=== PATIENT | female | born 1945 | race Caucasian/White ===

== ENCOUNTER → 2017-09-25 09:31 | Outpatient (CLI) | payer BC, SELFPAY ==
--- NOTE | 2017-09-25 09:35 | HPBI_ITS ---
MAMMOGRAPHY - BILATERAL SCREENING REASON FOR EXAM: Female, 71 years old. Routine annual screening examination. PERTINENT HISTORY: Non-contributory. TECHNIQUE: Digital bilateral breast darnell (3D mammographic acquisition) in the CC and MLO projections. 2-D mediolateral oblique (MLO) and craniocaudad (CC) views of both breasts were obtained. CAD: Full Field Digital Mammography with Computer Added Detection was performed. COMPARISON: Comparison is made with prior study dated September 05, 2016 and August 28, 2015. FINDINGS: Breast Composition: The breasts are heterogeneously dense, which may obscure small masses. There are no dominant masses or suspicious calcifications. Stable bilateral secretory calcifications. No other significant abnormalities are identified. There has been no significant change since the prior study. HPBI/SCREENING MAMM (CAD), BILAT IMPRESSION: Stable bilateral screening mammogram. Yearly follow-up mammogram recommended. (A) ASSESSMENT CATEGORY: BIRADS Category 2: Benign. A letter regarding these results will be sent to the patient by the facility within 30 days. Approximately 10% of breast cancers are not detected by mammography. A normal mammogram should not delay biopsy of a clinically suspicious abnormality. [id number] Electronically Signed: Michael Thomason MD at 13:38 EST Tel [phone], Service support ,
== END ==
PROVIDERS: Family Provider Family Medicine; PCP Family Medicine; Visit Provider Family Medicine
DX: Z12.31 Encounter for screening mammogram for malignant neoplasm of breast (principal)
CPT/HCPCS: 77063; 77067

== ENCOUNTER → 2017-11-06 14:15 | Outpatient (CLI) | payer BC, MEDICARE, SELFPAY ==
[2017-11-06 16:18] LABS: Hemoglobin A1c 6.4 % (4.2-6.3)
== END ==
PROVIDERS: Family Provider Family Medicine; PCP Family Medicine; Visit Provider Family Medicine
DX: E11.9 Type 2 diabetes mellitus without complications (principal)
CPT/HCPCS: 36415; 83036

== ENCOUNTER → 2018-02-12 09:36 | Outpatient (CLI) | payer BC, MEDICARE, SELFPAY ==
[2018-02-12 12:31] LABS: Hemoglobin A1c 6.4 % (4.2-6.3)
== END ==
PROVIDERS: Family Provider Family Medicine; PCP Family Medicine; Visit Provider Family Medicine
DX: E11.9 Type 2 diabetes mellitus without complications (principal)
CPT/HCPCS: 36415; 83036

== ENCOUNTER → 2018-04-16 13:38 | Outpatient (CLI) | payer OTHER, MEDICARE, SELFPAY ==
[2018-04-16 15:38] LABS: Color, Urine Yellow (Yellow); Glucose, Dipstick Normal (Normal); Ketone-Dipstick Negative (Negative); Leukocyte Esterase-Dipstick 100 /ul (Negative); Nitrite-Dipstick Negative (Negative); Occult Blood-Urine Negative /ul (Negative); Protein-Dipstick 15 mg/dl (Negative); Urine Bilirubin Dipstick Negative (Negative); Urine Clarity Cloudy (Clear); Urine Urobilinogen Normal (Normal)
== END ==
PROVIDERS: Family Provider Family Medicine; PCP Family Medicine; Visit Provider Family Medicine
DX: R10.9 Unspecified abdominal pain (principal)
CPT/HCPCS: 81002

== ENCOUNTER 2018-04-23 13:00 | Outpatient (RCR) | payer BC, OTHER, MEDICARE, SELFPAY ==
--- NOTE | 2018-02-12 11:53 | HP.OTEVAL ---
Patient's Visit Information CANDACE SILVESTRE is a 72 year old F, referred to Occupational Therapy by Timmy Sandoval MD, with a diagnosis of Unilateral primary osteoarthritis of 1st carpometacarpal joint right hand. Date of Evaluation: 02/12/18 Occupational Therapist: Dianna Webb, OTR/Tom, CHT - Subjective Subjective: pt states she had difficulty with right thumb CMC pain and Arthritis for 8 years-pt states her fingers started to get numb so she decided to have sx. sx on January 26, 2018 with right CMC arthroplasty, and CTR. pt states she is feeling good- reports numbness has gone away and she is happy with her progress. Pt would like to return to her ind. BADLS and IADLS. 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 Goal:: pt will demo right wrist and thumb ROM equal to left by d/c to return pt to PLOF with BADLS and IADLS. Goal:: pt will report no pain greater kam 1/10 with use of right hand with BADLS and IADls by d/c Goal:: pt will demo understanding of scar mtg by end of 2nd visits to decrease scar complications Goal:: pt will demo understanding of joint protection and ad. eq for IADLS bu d/c - Rehabilitation General Assessment: pt S/P 2 weeks right thumb carpometacarpal arthroplasty: ligament reconstruction, right thumb adductor release: tenosynovectomy and first dorsal campartment- right carpal tunnel release- right wrist flexor tenosynovectomy on 01/26/18. pt is demo a reduction in right wrist/digit ROM and limited with functional use of righ UE with ADLS and IADLS. OTR/L, CHT will provide skilled service following JWD post op protocol to return pt to PLOF- Rehabilitation Potential: Excellent - Anticipated Interventions Anticipated Interventions: A/AAROM/PROM, Strengthening, Edema Control, Scar Care, Desensitization, Wound Care, Modalities, Orthoses, Joint Protection/Energy Conservation, Fine Motor Coord/Valerio - Visit Plan Frequency: 1x/Week Duration: 2 Months TEXT: Thank you for the opportunity to evaluate your patient. For Medicare and Medicare HMO plans, please review the plan of care and approve it. It will need to be FAXED BACK to us at [phone] for Medicare purposes. Please let me know if there are questions or concerns regarding this plan of care. Physician Signature: Date:
--- NOTE | 2018-04-23 13:33 | HP.OTDCSUM ---
HP - OT D/C Summary It has been my pleasure to treat CANDACE SILVESTRE under orders from Timmy Sandoval MD, for the diagnosis of Unilateral primary osteoarthritis of 1st carpometacarpal joint right hand for a total of 9 visit(s). Please see the following information for a summary of their discharge status. - Overall Improvement % Improvement: 90 - Objective Objective/Function: right spinning frame fixer 15#. left 20#. right IP flex 60. right MP flex 45. pt reports no numbness/tingling. pt demo with functional ROM. - Goals Patient Goals: Regain Mobility, Regain Strength, Use Hand/Wrist/Arm Normally Again Goal:: following 10 week s/p pt will be tested for spinning frame fixer/pinch strength and goals will be set at that time. Goal:: pt will demo right wrist and thumb ROM equal to left by d/c to return pt to PLOF with BADLS and IADLS. Goal:: pt will report no pain greater kam 1/10 with use of right hand with BADLS and IADls by d/c Goal:: pt will demo understanding of scar mtg by end of 2nd visits to decrease scar complications Goal:: pt will demo understanding of joint protection and ad. eq for IADLS bu d/c - Plan Plan: D/C - D/C Information Discharge Comments: PT was seen for 9 visit following a right CMC arthroplasty. PT reports she is ind. with all BADLs and IADLS at this time PT.has met functional goals and is D/C at this time. If there are questions or concerns regarding this patient's occupational therapy, please fell free to call me at [phone]. Thank you for the referral of this patient. Sincerely, Dianna Webb, OTR/L, CHT
== END 2018-04-23 19:00 | disposition home or self-care (01) ==
LOC: OT 13:00
PROVIDERS: Family Provider Family Medicine; PCP Family Medicine; Visit Provider Orthopaedic Surgery
DX: G56.01 Carpal tunnel syndrome, right upper limb (principal); M18.11 Unilateral primary osteoarthritis of first carpometacarpal joint, right hand; M65.841 Other synovitis and tenosynovitis, right hand
CPT/HCPCS: 97035; 97110; 97140; 97166; 97168; 97530; G8987; G8988; G8989

== ENCOUNTER → 2018-05-18 10:07 | Outpatient (CLI) | payer OTHER, MEDICARE, SELFPAY ==
[2018-05-18 12:50] LABS: Hemoglobin A1c 6.5 % (4.2-6.3)
== END ==
PROVIDERS: Family Provider Family Medicine; PCP Family Medicine; Visit Provider Family Medicine
DX: E11.9 Type 2 diabetes mellitus without complications (principal)
CPT/HCPCS: 36415; 83036

== ENCOUNTER → 2018-05-27 15:55 | Outpatient (CLI) | payer OTHER, MEDICARE, SELFPAY ==
--- NOTE | 2018-05-27 15:59 | RAD_ITS ---
STUDY: X-RAY - LUMBAR SPINE REASON FOR EXAM: Female, 72 years old. Lower back pain TECHNIQUE: 3 view(s) of the lumbar spine were obtained. COMPARISON: None FINDINGS: Normal lumbar lordosis. There is no substantial scoliosis. There is a normal alignment of the vertebrae. There is multilevel endplate spondylosis of the lumbar vertebrae. There is multi-level degenerative disc disease with multi-level disc space narrowing. The soft tissue structures are unremarkable. RAD/Lumbar Spine 2 or 3 Views IMPRESSION: Degenerative changes of the spine, as detailed above. Electronically Signed: Pio Stacy MD at 13:46 EDT Tel , Service support ,
--- NOTE | 2018-05-27 15:59 | RAD_ITS ---
STUDY: X-RAY - THORACIC SPINE REASON FOR EXAM: Female, 72 years old. Back pain TECHNIQUE: 3 view(s) of the thoracic spine were obtained. COMPARISON: None. FINDINGS: Normal kyphosis of the thoracic spine. There is mild dextroscoliosis. There is multilevel endplate spondylosis of the thoracic vertebrae. There is multilevel disc space narrowing of the thoracic spine. The soft tissue structures are unremarkable. RAD/Thoracic Spine 2 Views IMPRESSION: There is multilevel endplate spondylosis of the thoracic vertebrae. There is multilevel disc space narrowing of the thoracic spine. Electronically Signed: Pio Stacy MD at 13:47 EDT Tel , Service support ,
== END ==
PROVIDERS: Family Provider Family Medicine; PCP Family Medicine; Visit Provider Family Medicine
DX: M54.9 Dorsalgia, unspecified (principal)
CPT/HCPCS: 72070; 72100

== ENCOUNTER 2018-05-29 11:17 | Emergency (ER) | payer OTHER, MEDICARE, SELFPAY ==
[2018-05-29 11:18] VITALS: BP 155/98; PULSE 89; RESP 18; TEMP 36.9; O2SAT 97; BMI 41.0
--- NOTE | 2018-05-29 11:29 | CT_ITS ---
STUDY: CT ABDOMEN AND PELVIS WITHOUT CONTRAST REASON FOR EXAM: Female, 72 years old. Back pain. Gastric bypass. RADIATION DOSAGE (If Supplied By Facility): CTDIvol = ( 23.15 ) mGy, DLP = ( 1197.04 ) mGycm TECHNIQUE: Transaxial images were obtained from the dome of the diaphragm to the symphysis pubis without oral contrast, and without intravenous contrast. Sagittal and coronal images were reconstructed. Individualized dose optimization techniques were used for this CT. COMPARISON: None. FINDINGS: The visualized lung bases are unremarkable. Mild cardiomegaly. Normal liver. There is non-visualization of the gallbladder, which may be secondary to either contraction or a prior cholecystectomy. Normal spleen. Normal pancreas. Normal bilateral adrenal glands. No acute abnormality of the kidneys. Multiple bilateral small stones in all segments. No obstructing stones. No hydronephrosis. 1.5 cm exophytic mass of the lower pole of the right kidney, most likely a cyst but recommend confirmation with ultrasound. Evaluation of the GI tract is limited by absence of oral contrast. There has been gastric bypass. Cannot exclude stomach wall thickening. No dilated loops of bowel or evidence for obstruction. Cannot exclude segmental thickening of the estes of the small or large bowel. Cannot exclude enteritis or colitis. Moderate diffuse fecal retention. Appendix is absent. Normal abdominal aorta. Normal inferior vena cava. Normal retroperitoneum. Normal urinary bladder. Normal visualized uterus. There are small midline fat-containing hernias. There are diffuse degenerative changes of the visualized lumbar spine. CT/Abdomen/Pelvis without Cont IMPRESSION: No definite acute abnormality. Probable cyst of the lower pole of the right kidney. Ultrasound recommended. Electronically Signed: Berhane Duke MD at 12:43 EDT , Service support ,
--- NOTE | 2018-05-29 11:31 | ED.DCSUM_ITS ---
- ER Visit Summary Date of Service: 05/29/18 Chief Complaint: Left back pain History of Present Illness: The patient is a 72 F presents to the emergency department left-sided back pain. The patient had the same symptoms about a month ago. She states it lasted 10-12 days. She states the pain returned over the past few days. She states that if she lays flat, she has no pain. It is only when she twists or coughs. She denies any trauma. The pain does not radiate down her legs. She denies any rash. She has had no fever or chills. She has no history of pulmonary embolus. The patient is on Xarelto. She has not had cough. She denies any urinary symptoms. She had no numbness in her groin. She had no problems moving her bowels. The pain got worse last night about 2 AM. She states she took 2 [place] with little improvement. Physical Examination: Afebrile, vitals unremarkable. Well-appearing female no acute distress. Head is normocephalic, atraumatic. Pupil's equal round reactive, extraocular muscles intact. Neck supple. Heart regular rate and rhythm. Lungs clear, chest nontender. Abdomen soft, nontender, nondistended. No pulsatile mass. Patient has paraspinal tenderness in the left paraspinal thoracic area, but no bony tenderness. Straight leg raise is negative bilaterally. 2+ symmetric lower extremity pulses. 2+ reflexes. No clonus. No weakness of dorsiflexion, plantar flexion, or extensor hallucis longus bilaterally. Test Results: [] Emergency Department Course and Treatment: The patient's pain does seem musculoskeletal. It is only when she moves or twists. Sitting and laying, she has no pain. Her abdomen is benign. She has normal pulses of her lower extremities. However, given her recent negative x-rays and pain despite oral therapy, I did pursue a workup. The patient is already on Xarelto. I really do not have suspicion for renal infarct or other dangerous process. Screening labs were obtained were unremarkable. The patient was given morphine with some improvement of her pain. CT of the abdomen and pelvis does not show any acute intra-abdominal pathology. It is a noncontrasted exam. There is no large stone. She does have some nitrite positive urine. I do not feel that this is pyelonephritis or that this is the cause of her symptoms, but I will treat her with oral antibiotics. Culture was added. She has no rash or skin change. At this time, I am going to add lidocaine patch, Medrol, and a short course of Percocet for pain control. I do feel that she may need MRI as an outpatient, but she has no dangerous symptoms were I feel like this needs to be done emergently. The patient is able to ambulate. At this time, I do feel that she is safe for outpatient therapy. Treatment Plan: [] Disposition: Discharge Impression: 1. Cystitis 2. Left flank pain This note was generated with [employer] dictation software. It may contain incorrect words, spelling, and punctuation that were not noted in review of the chart prior to signing ED Disposition - Plan for ED Patient: Disposition: Home or Assisted Living Chief Complaint: Back Instructions: ED Flank Pain Uncertain Cause Prescriptions: Oxycodone HCl/Acetaminophen [Percocet 5/325] 1 tab PO Q6H PRN PRN 3 Days #12 tab PRN Reason: Pain Cephalexin [Keflex] 500 mg PO Q6 #40 cap Fluconazole [Diflucan] 150 mg PO X1 #1 tab MethylPREDNISolone DosePak [Medrol DosePak] 4 mg PO UD #1 box RX: Lidocaine 1 ea TP BID #14 adh..patch Referrals: Gerard Kothari DO [Primary Care Provider] -
[2018-05-29 11:47] LABS: Absolute Lymphocyte Count 1.56 X10^3/ul (0.83-4.51); Absolute Neutrophil Count 2.7 X10^3/uL (2.0-7.7); Basophil# 0.03 X10^3/uL; Basophil% 0.6 % (0-1); Eosinophil# 0.18 X10^3/uL; Eosinophils% 3.7 % (0-5); Hematocrit 38.8 % (37-47); Lymphocyte # 1.56 X10^3/ul (4.0); Lymphocyte % 31.6 % (19-41); Mean Corp Hgb Conc 30.9 g/gl (32-36); Mean Corpuscular Hgb 27.5 pg (27.0-32.0); Monocyte# 0.47 X10^3/uL; Monocyte% 9.5 % (0-10); Neutrophil # 2.68 X10^3/uL (2.7-7.7); Neutrophil % 54.4 % (47-70); Platelet Count 244 K/mm3 (150-450); RBC Distribution Width CV 16.3 % (11.6-14.6); Red Blood Count 4.36 M/mm3 (4.2-5.4); White Blood Count 4.9 K/mm3 (4.4-11.0)
[2018-05-29 11:50] LABS: POSITIVE COUNT NO; POSITIVE DIFFERENTIAL NO; POSITIVE MORPHOLOGY NO
[2018-05-29] MEDS: Morphine 4 MG/ML Syringe IV (11:59)
[2018-05-29] MEDS: Ondansetron 4 MG/2 ML Vial IV (11:59)
[2018-05-29 12:02] LABS: Anion Gap 9 (5-15); BUN 33 mg/dL (7-18); BUN/Creat Ratio 23.9 RATIO (10-20); Calcium,Total 9.1 mg/dL (8.5-10.1); Chloride 103 mmol/L (98-107); Creatinine, Serum 1.38 mg/dL (0.55-1.02); EST Glomerular Filtration Rate 40 mL/min (>60); Est Glom Filt Rate - Afr Amer 48 mL/min (>60); Glucose 138 mg/dL (74-106); Potassium 5.3 mmol/L (3.5-5.1); Sodium Level 139 mmol/L (136-145)
[2018-05-29 12:15] LABS: Mucous, Urine 0 SEEN /hpf (<or=2+); Red Blood Cells-Urine 0 SEEN /hpf (0-5)
[2018-05-29 12:23] LABS: Color, Urine Yellow (Yellow); Glucose, Dipstick Normal (Normal); Ketone-Dipstick Negative (Negative); Leukocyte Esterase-Dipstick 25 /ul (Negative); Nitrite-Dipstick Positive (Negative); Occult Blood-Urine Negative /ul (Negative); Protein-Dipstick 15 mg/dl (Negative); Urine Bilirubin Dipstick Negative (Negative); Urine Clarity Sl. Cloudy (Clear); Urine Urobilinogen Normal (Normal)
[2018-05-29 12:40] LABS: Bacteria 1+ /hpf (None Seen); Squamous Epithelial Cells - UA 0-5 SEEN /hpf (5-10); White Blood Cells 0-5 SEEN /hpf (0-5)
[2018-05-29 13:42] VITALS: BP 132/62; PULSE 74; RESP 18; O2SAT 94
== END 2018-05-29 13:47 | disposition home or self-care (01) ==
LOC: ED 11:50
PROVIDERS: Emergency Provider Emergency Medicine; Family Provider Family Medicine; PCP Family Medicine
DX: N30.90 Cystitis, unspecified without hematuria (principal); R10.9 Unspecified abdominal pain; I10 Essential (primary) hypertension; Z79.01 Long term (current) use of anticoagulants; Z79.899 Other long term (current) drug therapy
CPT/HCPCS: 74176; 80048; 81001; 85025; 87086; 87088; 87186; 96374; 96375; 99283; A4216; J2405

== ENCOUNTER → 2018-11-06 12:38 | Outpatient (CLI) | payer OTHER, MEDICARE, SELFPAY ==
[2018-08-20 09:31] VITALS: BMI 40.5
[2018-11-05 15:19] VITALS: BMI 40.5
--- NOTE | 2018-11-06 12:39 | BI_ITS ---
MAMMOGRAPHY - BILATERAL SCREENING REASON FOR EXAM: Female, 73 years old. Routine annual screening examination. PERTINENT HISTORY: Non-contributory. TECHNIQUE: Digital bilateral breast nivia (3D mammographic acquisition) in the CC and MLO projections. 2-D mediolateral oblique (MLO) and craniocaudad (CC) views of both breasts were obtained. CAD: Full Field Digital Mammography with Computer Added Detection was performed. COMPARISON: Comparison is made with prior examination dated September 25, 2017 and September 05, 2016. FINDINGS: Breast Composition: The breasts are heterogeneously dense, which may obscure small masses. There are no dominant masses or suspicious calcifications. Stable bilateral secretory calcifications. No other significant abnormalities are identified. There has been no significant change since the prior study. BI/SCREEN MAMM (CAD) W/NIVIA BILAT IMPRESSION: Stable bilateral screening mammogram. Yearly follow-up mammogram recommended. (A) ASSESSMENT CATEGORY: BIRADS Category 2: Benign. A letter regarding these results will be sent to the patient by the facility within 30 days. Approximately 10% of breast cancers are not detected by mammography. A normal mammogram should not delay biopsy of a clinically suspicious abnormality. [id number] Electronically Signed: Michael Thomason, at 14:25 EDT , Service support ,
== END ==
PROVIDERS: Family Provider Family Medicine; PCP Family Medicine; Referring Provider Family Medicine; Visit Provider Family Medicine
DX: Z12.31 Encounter for screening mammogram for malignant neoplasm of breast (principal)
CPT/HCPCS: 77063; 77067

== ENCOUNTER → 2018-11-18 11:34 | Outpatient (CLI) | payer OTHER, MEDICARE, SELFPAY ==
[2018-11-18 11:02] VITALS: BMI 40.5
[2018-11-18 12:45] LABS: Absolute Lymphocyte Count 1.36 X10^3/ul (0.83-4.51); Absolute Neutrophil Count 3.6 X10^3/uL (2.0-7.7); Basophil# 0.04 X10^3/uL; Basophil% 0.7 % (0-1); Eosinophil# 0.23 X10^3/uL; Eosinophils% 3.9 % (0-5); Hematocrit 37.3 % (37-47); Lymphocyte # 1.36 X10^3/ul (4.0); Mean Corp Hgb Conc 29.5 g/gl (32-36); Mean Corpuscular Hgb 25.8 pg (27.0-32.0); Mean Corpuscular Volume 87.6 fL (81-99); Mean Platelet Vol. 9.2 fl (6.2-12.0); Monocyte# 0.63 X10^3/uL; Monocyte% 10.6 % (0-10); Neutrophil # 3.64 X10^3/uL (2.7-7.7); Neutrophil % 61.5 % (47-70); Platelet Count 253 K/mm3 (150-450); RBC Distribution Width CV 16.9 % (11.6-14.6); RBC Distribution Width SD 53.4 fl (35.1-43.9); Red Blood Count 4.26 M/mm3 (4.2-5.4); White Blood Count 5.9 K/mm3 (4.4-11.0)
[2018-11-18 12:47] LABS: POSITIVE COUNT NO; POSITIVE DIFFERENTIAL NO; POSITIVE MORPHOLOGY NO
[2018-11-18 13:06] LABS: Anion Gap 10 (5-15); BUN 35 mg/dL (7-18); Calcium,Total 8.8 mg/dL (8.5-10.1); Chloride 103 mmol/L (98-107); Creatinine, Serum 1.46 mg/dL (0.55-1.02); EST Glomerular Filtration Rate 37 mL/min (>60); Est Glom Filt Rate - Afr Amer 45 mL/min (>60); Glucose 116 mg/dL (74-106); Potassium 4.5 mmol/L (3.5-5.1); Sodium Level 137 mmol/L (136-145)
[2018-11-18 13:11] LABS: Hemoglobin A1c 6.8 % (4.2-6.3)
[2018-11-18 13:15] LABS: BNP,B-Type NATRIURETIC PEPTIDE 530.8 pg/mL (0-100)
== END ==
PROVIDERS: Family Provider Family Medicine; PCP Family Medicine; Visit Provider Family Medicine
DX: E11.9 Type 2 diabetes mellitus without complications (principal); R06.00 Dyspnea, unspecified; I10 Essential (primary) hypertension
CPT/HCPCS: 36415; 80048; 83036; 83880; 85025

== ENCOUNTER → 2018-12-07 | Outpatient (CLI) | payer OTHER, MEDICARE, SELFPAY ==
[2018-11-18 11:02] VITALS: BMI 40.5
--- NOTE | 2018-12-07 08:54 | ECHOD_ITS ---
Reason For Study: SOB Procedure This was a 2D Doppler, Color Flow transthoracic echocardiogram. Exam performed in department. Left Ventricle Normal LV size. The estimated ejection fraction is 47 %. Mild global left ventricular systolic dysfunction. Stage 2 diastolic dysfunction. No regional wall motion abnormalities noted. Right Ventricle Normal size and thickness. Normal systolic function. Atria The left atrium is severely enlarged. The right atrium is moderately enlarged. Patent foramen ovale. Mitral Valve Normal mitral valve. Mild-Moderate (1-2+) eccentric mitral valve insufficiency. Tricuspid Valve Normal tricuspid valve. Mild (1+) tricuspid valve insufficiency. Pulmonary artery systolic pressure is 50 mmHg. Moderate pulmonary hypertension. Aortic Valve Trisinus/trileaflet aortic valve. Mild focal aortic valve thickening. Trivial aortic valve insufficiency. Pulmonic Valve Normal pulmonic valve. Great Vessels Normal aortic root. The pulmonary artery is normal size. Normal inferior vena cava. Pericardium/Pleural No pericardial effusion. Medication 22 gauge I.V. with prn adaptor inserted into right arm. Performed a rapid injection of agitated mix of 9 cc saline and 1cc air to assess for atrial septal defect. MMode/2D Measurements & Calculations LVIDd: 5.4 cm IVSd: 1.4 cm Ao root diam: 3.5 cm LVIDs: 3.7 cm LVPWd: 1.4 cm RVDd: 4.3 cm FS: 31.5 % LAV(MOD-bp): 117.8 ml LA A4 area: 36.9 cm2 LA dimension(2D): 4.4 cm LAV(MOD-bp) Indexed: 53.4 ml/m2 LAV(MOD-sp2): 76.1 ml LAV(MOD-sp4): 162.2 ml RA A4 area: 28.2 cm2 Doppler Measurements & Calculations MV E max jaiden: 94.6 cm/sec Lat Peak E' Jaiden: 9.5 cm/sec Med Peak E' Jaiden: 6.0 cm/sec MV A max jaiden: 44.5 cm/sec E/E' lat: 9.9 E/E' med: 15.7 MV E/A: 2.1 Ao V2 max: 164.4 cm/sec LV V1 max: 119.1 cm/sec PA V2 max: 97.9 cm/sec Ao max P.8 mmHg LV V1 max P.7 mmHg TR max jaiden: 342.0 cm/sec TR max P.9 mmHg Interpretation Summary Normal LV size. The estimated ejection fraction is 47 %. Mild global left ventricular systolic dysfunction. Stage 2 diastolic dysfunction. The left atrium is severely enlarged. The right atrium is moderately enlarged. Mild-Moderate (1-2+) eccentric mitral valve insufficiency. Moderate pulmonary hypertension. Compared to previous study, the left ventricular systolic function is the same.. Ordering Physician: Gerard Kothari Referring Physician: Gerard Kothari Performed By: Vicenta Gonzales JENNIFER
== END | disposition home or self-care (01) ==
LOC: CVS 08:53
PROVIDERS: Family Provider Family Medicine; PCP Family Medicine; Referring Provider Family Medicine; Visit Provider Family Medicine
DX: R06.00 Dyspnea, unspecified (principal)
CPT/HCPCS: 93306; A4216

== ENCOUNTER → 2019-01-07 | Outpatient (CLI) | payer OTHER, MEDICARE, SELFPAY ==
[2019-01-06 16:00] VITALS: BMI 39.6
[2019-01-07 14:43] LABS: BNP,B-Type NATRIURETIC PEPTIDE 662.6 pg/mL (0-100)
== END | disposition home or self-care (01) ==
LOC: MTLAB 12:18
PROVIDERS: Family Provider Family Medicine; PCP Family Medicine; Referring Provider Internal Medicine Cardiovascular Disease; Visit Provider Internal Medicine Cardiovascular Disease
DX: R06.00 Dyspnea, unspecified (principal)
CPT/HCPCS: 36415; 83880

== ENCOUNTER → 2019-01-26 | Outpatient (CLI) | payer OTHER, MEDICARE, SELFPAY ==
[2019-01-06 16:00] VITALS: BMI 39.6
[2019-01-26 11:40] LABS: Anion Gap 12 (5-15); BUN 23 mg/dL (7-18); BUN/Creat Ratio 18.4 RATIO (10-20); Calcium,Total 8.7 mg/dL (8.5-10.1); Chloride 101 mmol/L (98-107); Creatinine, Serum 1.25 mg/dL (0.55-1.02); EST Glomerular Filtration Rate 45 mL/min (>60); Est Glom Filt Rate - Afr Amer 54 mL/min (>60); Glucose 115 mg/dL (74-106); Potassium 3.9 mmol/L (3.5-5.1); Sodium Level 137 mmol/L (136-145)
== END | disposition home or self-care (01) ==
LOC: MTLAB 10:35
PROVIDERS: Family Provider Family Medicine; PCP Family Medicine; Referring Provider Internal Medicine Cardiovascular Disease; Visit Provider Internal Medicine Cardiovascular Disease
DX: I27.21 Secondary pulmonary arterial hypertension (principal); I34.0 Nonrheumatic mitral (valve) insufficiency; I43 Cardiomyopathy in diseases classified elsewhere; I48.0 Paroxysmal atrial fibrillation; I48.4 Atypical atrial flutter; I50.40 Unspecified combined systolic (congestive) and diastolic (congestive) heart failure; I51.89 Other ill-defined heart diseases; Z98.890 Other specified postprocedural states
CPT/HCPCS: 36415; 80048

== ENCOUNTER 2019-08-11 08:54 | Emergency (ER) | payer OTHER, MEDICARE, SELFPAY ==
[2019-08-02 09:37] VITALS: BMI 37.4
[2019-08-11 08:55] VITALS: BP 148/97; PULSE 82; RESP 16; TEMP 36.4; O2SAT 96; BMI 37.4
--- NOTE | 2019-08-11 09:14 | CT_ITS ---
STUDY: CT BRAIN WITHOUT CONTRAST REASON FOR EXAM: Female, 73 years old. Recent fall. RADIATION DOSAGE (If Supplied By Facility): CTDIvol = ( 44.99 ) mGy, DLP = ( 829.85 ) mGycm TECHNIQUE: Transaxial CT imaging of the brain was performed without administration of intravenous contrast material. Individualized dose optimization techniques were used for this CT. COMPARISON: Comparison is made with prior study dated September 13, 2011. FINDINGS: Normal soft tissue structures. There is hyperostosis frontalis internus. There is mild cerebral atrophy with widening of the extra-axial spaces and ventricular dilatation. There are areas of decreased attenuation within the white matter tracts of the supratentorial brain, consistent with microvascular disease changes. 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 Normal brainstem. Normal cerebellum. There is no intracranial hemorrhage. There are no findings of an acute ischemic infarction. Atherosclerotic calcification of the vertebral arteries and cavernous portions of the internal carotid arteries bilaterally Normal visualized paranasal sinuses. CT/Brain/Head without Contrast IMPRESSION: Chronic involutional changes of the brain. Electronically Signed: Michael Thomason, at 10:12 EST , Service support ,
--- NOTE | 2019-08-11 09:16 | ED.VIS.GEN ---
History of Present Illness Chief Complaint: Headache Informant: Patient Onset: Days Maximum Severity: Mild Narrative: Patient presents complaining of left-sided ear pain, head injury fall on Friday she got up after the fall simply tripped at that time, no LOC no nausea vomiting change in vision has some contusions to the head was doing okay then this morning began having stabbing pains in left ear took a Vicodin tablet came in for evaluation she currently again she does not have any change in vision numbness weeks paresthesias just the pain executing all of her daily activities Past Medical History - Allergies and Home Meds Allergies/Adverse Reactions: Allergies erythromycin base Allergy (Verified 08/02/19 09:37) Hives Sulfa (Sulfonamide Antibiotics) Adverse Reaction (Verified 08/02/19 09:37) Hives Primary Care Physician: Gerard Kothari DO [Primary Care Provider] - Past Medical History: - - Prior PE PE Surgical History: gastric bypass Smoking Status: Former smoker Review of Systems ROS: - Prior PE PE gastric bypass and as above no blood thinners aspirin only General: Reports: - - Injury as above. Denies: Chills, Fever, Sweats Eyes: Denies: Visual changes - bilaterally, Diplopia ENT: Reports: Left ear pain. Denies: Rhinorrhea, Sore throat Cardiovascular: Denies: Chest pain, Palpitations Respiratory: Denies: Dyspnea, Cough, Dyspnea on exertion Gastrointestinal: Denies: Abdominal pain, Nausea, Vomiting, Diarrhea, Melena, Hematochezia Genitourinary: Denies: Dysuria, Hematuria, Frequency Musculoskeletal: Denies: Back pain, Extremity Pain Skin: Denies: Rash, Wounds Neurological: Denies: Headache, Weakness, Numbness Physical Exam Vital Signs/Narrative: Vital Signs Temp Pulse Resp BP Pulse Ox 08/11/19 08:55 97.6 F L 82 16 148/97 H 96 General: Well nourished, Well developed, No Acute Distress Head: Normocephalic, - - Tenderness to a few spots on the left side of the head there are some small contusions here, the left TM is slightly red compared to the right the nose throat HEENT exam neck exam back exam general medical exam cranial nerve motor exam negative NIH is 0 Eyes: Perrl, EOMI ENT: Moist mucous membranes, No rhinorrhea Neck: Supple, Nontender Cardiovascular: Regular rate, Regular rhythm, No murmurs Respiratory: No distress, CTA bilaterally, Chest nontender Abdomen: Soft, Nontender, Nondistended, Normal bowel sounds Back: Nontender, Normal Inspection Extremities: Nontender, No edema Skin: Normal color, No rash Neurological: Alert, Oriented x3, Cranial nerves II-XII grossly intact, Normal Strength, Normal Sensation Psychological: Normal affect, Normal Mood Diagnostic/Tx/Re-eval - Medical Decision Making Given all of the above she is medicated with morphine Zofran head CT Patient's head CT is negative for all there are scattered what appear to be old lacunar notify the patient of the above she follow-up with her physicians she feels better now wants to go home given that she has very subtle findings for left otitis media her chief complaint is ear pain I explained to her the concept of concussion other complications from head injuries of the lacuns she was started on amoxicillin Naprosyn for pain as needed , She is comfortable with discharge home for outpatient management Home stable, Final impression left otitis media closed head injury ED Disposition - Plan for ED Patient: Diagnosis: Head injury, Otitis media Instructions: HEADACHE, Unspecified, OTITIS MEDIA, Abx Tx (Adult) Prescriptions: Amoxicillin 500 mg PO TID #30 tab Prescription Printed Fluconazole [Diflucan] 150 mg PO BID #4 tab Prescription Printed Naproxen [Naprosyn] 500 mg PO BID PRN #20 tab Prescription Printed Referrals: Gerard Kothrai DO [Primary Care Provider] -
[2019-08-11] MEDS: Ondansetron 8 MG Tablet PO (09:45)
[2019-08-11] MEDS: morphine 8 MG/ML Syringe SC (09:45)
[2019-08-11] MEDS: AMOXICILLIN 500 MG CAPSULE PO (11:21)
[2019-08-11 11:22] VITALS: BP 156/78; PULSE 71; RESP 16; O2SAT 97
== END 2019-08-11 11:24 | disposition home or self-care (01) ==
PROVIDERS: Emergency Provider Emergency Medicine; Family Provider Family Medicine; PCP Family Medicine
DX: S00.03XA Contusion of scalp, initial encounter (principal); W19.XXXA Unspecified fall, initial encounter; Y93.9 Activity, unspecified; H66.92 Otitis media, unspecified, left ear; Z86.711 Personal history of pulmonary embolism; Z79.82 Long term (current) use of aspirin; Z79.899 Other long term (current) drug therapy; Z87.891 Personal history of nicotine dependence
CPT/HCPCS: 70450; 96372; 99283

== ENCOUNTER → 2019-11-12 10:49 | Outpatient (CLI) | payer MEDICARE, SELFPAY ==
[2019-11-03 14:21] VITALS: BMI 37.4
--- NOTE | 2019-11-12 10:50 | ECHOD_ITS ---
Reason For Study: SOB Procedure This was a 2D Doppler, Color Flow transthoracic echocardiogram. Exam performed in department. Left Ventricle Severely dilated left ventricle. Moderate concentric left ventricular hypertrophy. D shaped septum in diastole. The estimated ejection fraction is 50 %. There is mild global hypokinesis of the left ventricle. Right Ventricle Severely dilated right ventricle. Moderately severe global right ventricular systolic dysfunction. Atria The left atrium is severely enlarged. The right atrium is severely enlarged. Normal atrial septum. Mitral Valve Mild diffuse mitral valve thickening. Mild (1+) mitral valve insufficiency. Tricuspid Valve Normal tricuspid valve. Mild (1+) tricuspid valve insufficiency. Right ventricular systolic pressure estimated to be 83 mmHg. Severe pulmonary hypertension. Aortic Valve Trisinus/trileaflet aortic valve. Mild diffuse aortic valve thickening. Trivial aortic valve insufficiency. Pulmonic Valve Normal pulmonic valve. Great Vessels Mildly dilated aortic root. Normal arch. The inferior vena cava is dilated. Inferior vena cava collapse with sniff. Pericardium/Pleural No pericardial effusion. MMode/2D Measurements & Calculations LVIDd: 6.1 cm IVSd: 1.4 cm Ao root diam: 3.9 cm LVIDs: 4.1 cm LVPWd: 1.2 cm RVDd: 4.5 cm FS: 31.7 % LAV(MOD-bp): 97.5 ml LVAd ap4: 26.9 cm2 SV(MOD-sp4): 47.6 ml LAV(MOD-bp) Indexed: 45.5 ml/m2 EDV(MOD-sp4): 87.7 ml LAV(MOD-sp2): 68.2 ml EDV(sp4-el): 90.1 ml LAV(MOD-sp4): 109.1 ml LVAs ap4: 17.1 cm2 ESV(MOD-sp4): 40.1 ml ESV(sp4-el): 39.7 ml EF(MOD-sp4): 54.3 % EF(sp4-el): 55.9 % SV(sp4-el): 50.4 ml LA A4 area: 30.4 cm2 LA dimension(2D): 5.1 cm RA A4 area: 36.1 cm2 Doppler Measurements & Calculations MV E max jaiden: 76.0 cm/sec Lat Peak E' Jaiden: 10.9 cm/sec Med Peak E' Jaiden: 3.5 cm/sec MV A max jaiden: 30.7 cm/sec E/E' lat: 7.0 E/E' med: 21.4 MV E/A: 2.5 Ao V2 max: 150.1 cm/sec LV V1 max: 123.0 cm/sec PA V2 max: 94.1 cm/sec Ao max P.0 mmHg LV V1 max P.1 mmHg Ao V2 mean: 109.1 cm/sec Ao mean P.1 mmHg Ao V2 VTI: 29.9 cm TR max jaiden: 425.8 cm/sec TR max P.5 mmHg Interpretation Summary Severely dilated left ventricle. Moderate concentric left ventricular hypertrophy. The estimated ejection fraction is 50 %. There is mild global hypokinesis of the left ventricle. Severely dilated right ventricle. Moderately severe global right ventricular systolic dysfunction. The left atrium is severely enlarged. The right atrium is severely enlarged. Mild (1+) mitral valve insufficiency. Mild (1+) tricuspid valve insufficiency. Right ventricular systolic pressure estimated to be 83 mmHg. Severe pulmonary hypertension. D shaped septum in diastole. Trivial aortic valve insufficiency. Mildly dilated aortic root. There is no comparison study available. Ordering Physician: Gerard Kothari Referring Physician: Gerard Kothari Performed By: Emi Ace, VALARIE, RVT
== END ==
PROVIDERS: PCP Family Medicine; Referring Provider Family Medicine; Visit Provider Family Medicine
DX: I34.0 Nonrheumatic mitral (valve) insufficiency (principal)
CPT/HCPCS: 93306

== ENCOUNTER → 2020-01-24 12:28 | Outpatient (CLI) | payer MEDICARE, SELFPAY ==
[2020-01-21 14:03] VITALS: BMI 37.4
--- NOTE | 2020-01-24 12:31 | RAD_ITS ---
STUDY: X-RAY CHEST REASON FOR EXAM: Female, 74 years old. SOB TECHNIQUE: PA and lateral views of the chest. COMPARISON: Portable AP upright chest x-ray July 07, 2015. FINDINGS: The lungs are clear and expanded. There is no demonstrated pleural abnormality. There is stable mild to moderate cardiac enlargement with some fullness near the left atrial appendage. Normal mediastinum and beata. Normal visualized pulmonary arteries. Normal visualized aortic arch and descending thoracic aorta. There are stable degenerative changes of the visualized thoracic spine with multilevel bridging right anterolateral endplate osteophytes. Calcifications consistent with chronic calcific tendinitis incidentally noted near the lateral head of the right humerus. There is no demonstrated abnormality of the visualized soft tissue structures of the upper abdomen. RAD/Chest PA and Lateral IMPRESSION: Stable cardiac enlargement. No acute pneumonic infiltrate or CHF. Electronically Signed: Ruben Alcantara MD at 17:11 EDT , Service support ,
[2020-01-24 15:18] LABS: Absolute Lymphocyte Count 1.86 X10^3/uL (0.83-4.51); Absolute Neutrophil Count 3.9 X10^3/uL (2.0-7.7); Basophil# 0.06 X10^3/uL; Basophil% 0.9 % (0-1); Eosinophil# 0.56 X10^3/uL; Hematocrit 41.6 % (37-47); Hemoglobin 12.2 g/dL (12.0-15.0); Lymphocyte # 1.86 X10^3/ul (4.0); Lymphocyte % 26.4 % (19-41); Mean Corp Hgb Conc 29.3 g/dL (32-36); Mean Corpuscular Hgb 26.2 pg (27.0-32.0); Mean Corpuscular Volume 89.3 fL (81-99); Mean Platelet Vol. 9.5 fl (6.2-12.0); Monocyte% 8.5 % (0-10); NRBC Flagged by Analyzer 0 % (0-5); Neutrophil # 3.93 X10^3/uL (2.7-7.7); Neutrophil % 55.8 % (47-70); POSITIVE MORPHOLOGY YES; Platelet Count 281 K/mm3 (150-450); RBC Distribution Width CV 21.2 % (11.6-14.6); RBC Distribution Width SD 67.8 fl (35.1-43.9); Red Blood Count 4.66 M/mm3 (4.2-5.4)
[2020-01-24 15:25] LABS: Differential Indicated SCAN CRITERIA MET
[2020-01-24 15:42] LABS: Anion Gap 14 (5-15); BUN 38 mg/dL (7-18); BUN/Creat Ratio 21.7 RATIO (10-20); Calcium,Total 9.1 mg/dL (8.5-10.1); Chloride 99 mmol/L (98-107); Creatinine, Serum 1.75 mg/dL (0.55-1.02); EST Glomerular Filtration Rate 30 mL/min (>60); Est Glom Filt Rate - Afr Amer 37 mL/min (>60); Glucose 264 mg/dL (74-106); Potassium 4.2 mmol/L (3.5-5.1); Sodium Level 136 mmol/L (136-145)
[2020-01-24 15:54] LABS: Anisocytosis 2+; Platelet Estimate ADEQUATE (ADEQ); Red Cell Morphology N CHROM NORMAL (NORM C&C)
== END ==
PROVIDERS: PCP Family Medicine; Referring Provider Internal Medicine Cardiovascular Disease; Visit Provider Internal Medicine Cardiovascular Disease
DX: I12.9 Hypertensive chronic kidney disease with stage 1 through stage 4 chronic kidney disease, or unspecified chronic kidney disease (principal); I42.8 Other cardiomyopathies; I50.40 Unspecified combined systolic (congestive) and diastolic (congestive) heart failure
CPT/HCPCS: 36415; 71046; 80048; 85025

== ENCOUNTER 2020-01-28 07:53 | Day surgery (SDC) | payer MEDICARE, SELFPAY ==
[2020-01-21 14:03] VITALS: BMI 37.4
--- NOTE | 2020-01-27 09:32 | HP.PCM_ITS ---
History and Physical Date of Admission: 01/28/20 History of Present Illness Details: This is a 74-year-old female who presents to laboratory sample carrier today for a left and right heart catheterization. She does have a history of hypertension, atrial fibrillation flutter status post pulmonary vein isolation in 2015. She had previously had radiofrequency ablation in 2014 when she had a cardiac catheterization which demonstrated no obstructive coronary disease. She has had a history of pulmonary hypertension and diastolic dysfunction. She is seeing the hospice team lead. She apparently had an echocardiogram performed in October of this year which demonstrated concentric biventricular hypertrophy, a dilated right ventricle with markedly elevated pulmonary systolic pressure of 83 mmHg. She had her spironolactone increased. Her blood pressure she says has been marginal. She has had some shortness of breath. She has had no dizziness or diaphoresis near syncope or syncope. She does complain of pedal edema. 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) Atypical atrial flutter (Resolved) Paroxysmal atrial fibrillation (Chronic) Non-ischemic cardiomyopathy (Chronic) Secondary pulmonary arterial hypertension (Chronic) Diastolic dysfunction (Chronic) Nonsustained ventricular tachycardia (Chronic) Essential (primary) hypertension (Chronic) Hyperlipidemia (Chronic) Vicente's neuroma of left foot (Chronic) Diabetes type 2, controlled (Chronic) Chronic bronchitis (Chronic) Chronic pain (Chronic) Deep vein thrombosis (Chronic) Epidermal cyst of vulva (Chronic) History of pulmonary embolism (Chronic 2006) Morbid obesity (Chronic) Obstructive sleep apnea (Chronic) Osteoarthritis (Chronic) Patent foramen ovale (Chronic) Seasonal allergies (Chronic) Type 2 diabetes mellitus (Chronic) History of pneumonia (Resolved) Nonrheumatic mitral (valve) insufficiency (Ruled-out) Chronic bronchitis (Inactive) Surgical History History of (Resolved) History of bilateral knee replacement (Resolved) History of cardioversion (Resolved 09/23/12) History of carpal tunnel surgery of right wrist (Resolved) History of cholecystectomy (Resolved) History of gastric bypass (Resolved) History of left heart catheterization (Resolved 10/2000) History of radiofrequency ablation procedure for cardiac arrhythmia (Resolved 10/26/15) History of shoulder surgery (Resolved) Family History Father Myocardial infarction Mother Heart disease Myocardial infarction Social History (Updated 01/21/20 @ 14:[address] Burak Harrington MD) Smoking Status: Former smoker how long ago did patient quit smokin alcohol intake: never substance use type: does not use what type of physical activity do you participate in: none ROS Const Const: Positive for fatigue; negative for weakness, headache(s), frequent falls, difficulty sleeping or excessive sweating Eyes Eyes: Negative for loss of peripheral vision, transient loss of vision, blurry vision, double vision or tunnel vision ENT ENT: Negative for headache(s), dizziness, Nosebleed/epistaxis or balance problems Cardio Chest Pain: No Palpitations: No Edema: None Muscle aches with walking: None Resp Respiratory: Positive for SOB with activity (with increased); negative for SOB at rest, SOB orthopnea\SOB lying down, Cough (using wedge at night to help with cough) or paroxysmal nocturnal dyspnea GI GI: Negative nausea, vomiting, heartburn or black,tarry stools : Negative for hematuria Musc Musc: Negative for muscle aches/ myalgia, muscle weakness, joint pain or balance problems Skin Skin: Negative non-healing lesions, rash or unusual bruising Neuro Neuro: Negative for dizziness, lightheadedness, near syncope, syncope, ortho static symptoms, frequent falls, headache(s), weakness, blurry vision, double vision or lack of coordination Jayro Hematologic/Lymphatic: Negative for easy bleeding or easy bruising Endo Endo: Positive for fatigue; negative for excessive sweating or increased thirst/drinking Psych Psych: Negative for anxiety or depression Allergy Allergy/Immunology: Negative for hives, Negative for rash Cardiology Exam Const Appearance: cooperative, healthy appearing, no acute distress, well developed and well groomed Nutritional Appearance: average body habitus and well nourished Orientation: alert, awake and oriented x3 Head Head: normal to inspection, normocephalic and atraumatic Ears: hearing grossly normal bilaterally and external ears normal Nose: external nose normal, nares normal, nasal mucous membranes and turbinates normal, septum normal, no nasal discharge Face and Sinus: face symmetric Mouth: oral mucosae normal, tongue normal, oropharynx normal and moist mucous membranes Teeth and gingiva: dentition normal Throat: posterior oropharynx normal, tonsils normal and uvula midline Eyes General: appearance normal, both eyes and all related structures Eyelids: eyelids normal Conjunctivae: conjunctivae normal Pupils: PERRL, normal by confrontation and accommodation normal EOM: EOM intact bilaterally Neck Neck: normal visual inspection, trachea midline and no JVD JVD: +5 Carotids: normal carotid upstroke and bounding pulses Chest Chest inspection: normal inspection of the chest, symmetric chest movement and normal respiratory effort Auscultation: Bilateral: Clear to Auscultation Cardio Palpation: normal PMI Rate: regular rate Rhythm: regular rhythm Heart sounds: S1 normal, S2 normal and normal, physiologic split S2; negative rub, gallop or murmur GI GI: normal to inspection, soft, no hepatosplenomegaly and bowel sounds present Neuro General: alert, awake, oriented x3, gait normal, moves all extremities and no focal sensory deficit Skin Skin: no rashes or lesions noted Extremities Pulses: Normal: Right Femoral Pulse, Left Femoral Pulse, Right Dorsalis Pedis Pulse, Left Dorsalis Pedis Pulse, Right Posterior Tibial Pulse, Left Posterior Tibial Pulse, Right Radial Pulse, Left Radial Pulse Lower Extremity Edema: None: Bilateral Musculoskel Musculoskeletal: No joint tenderness Psych Psychological: normal affect Assessment & Plan 1. Secondary pulmonary arterial hypertension I27.21 Plan She does have severe pulmonary hypertension by echocardiographic criteria. My recommendation is for us to undergo a right and left heart catheterization. This would help us characterize this further. If it is indeed to that high then I may refer her back to the hospice team lead for a possible evaluation for other additional medication. 2. Non-ischemic cardiomyopathy I42.8 Plan She does have a nonischemic cardiomyopathy. Her ejection fraction was noted to be 50% which could most likely be secondary to right ventricular interdependence. We will continue to monitor this. I would suggest that we reduce her losartan to 50 mg once a day. 3. Paroxysmal atrial fibrillation I48.0 Plan She does have a history of paroxysmal atrial fibrillation. This has been ablated in the past and she has not had any recurrence. We will continue following her up with this. She is not on anticoagulation. 4. Essential (primary) hypertension I10 Plan She does have a history of hypertension. Her blood pressure at this time is was noted to be low and reducing the dose of the losartan would hopefully help in improving her blood pressure. 5. Combined systolic and diastolic congestive heart failure I50.40 Plan She does have combined systolic and diastolic heart failure as well as right ventricular failure. She is on the diuretic with the Lasix which will be continued, and the spironolactone as well.
[2020-01-27 10:57] VITALS: BMI 37.9
--- NOTE | 2020-01-28 14:01 | CL.D_ITS ---
Patient Name: CANDACE SILVESTRE Study Date: 01/28/2020 Performing: Burak Harrington MD Ht: 66.14 inches 168 cm : 1945 Wt: 235.89 lbs 107 kg Age: 74 Gender: female BSA: 2.15 PROCEDURE(S) PERFORMED OF60-ASD/LHC/COR/LV CLINICAL PROFILE AND INDICATIONS Indications: Other Heart Failure: None Stress/Imaging Stress/Image Study Performed: No CAD Presentations: Other: SOB CONCLUSIONS Mild atherosclerotic cardiovascular disease noted involving the left anterior descending artery and r ight coronary artery. RECOMMENDATIONS Medical therapy Would obtain opinion from tertiary care center. DESCRIPTION OF PROCEDURE The patient arrived to the procedure lab. The risks and benefits of the procedure as well as a full d escription of our services here and current unavailability of surgical backup were fully explained to the patient and/or their significant other prior to the catheterization. The Timeout was completed, verifying the correct patient and procedure. The patient's procedural site was prepped and draped in the usual fashion. Local anesthetic was given subcutaneously to right groin region with Lidocaine 2%. Using a modified Seldinger technique, arterial access was obtained via the right femoral artery, a 5 Fr sheath was inserted. Venous access was obtained via the right femoral vein, a 7Fr sheath was inser enedelia. A 7Fr thermal dilution catheter was inserted and right heart pressures were recorded, it was the n advanced to PA position for cardiac outputs. The Thermal dilution catheter was then removed - Could not access the pulmonary artery - pulmonary pressures not recorded. Left Coronary Artery selective angiography was performed in multiple views using a 5 Fr. JL4 catheter. Right Coronary Shawna ry selective angiography was then performed in multiple views using a 5 Fr. 3DRC (Dave) catheter. Left Coronary Artery selective angiography was performed in multiple views using a 5 Fr. JL 5 cathet er. Left Ventriculography was performed in MORIN projection using a 5 Fr. Pigtail catheter. LV to AO pu llback pressures were then recorded.The arterial sheath was pulled and manual compression applied unt il hemostasis is achieved.. The venous sheath was then pulled and manual compression applied until he mostasis achieved CORONARY ANGIOGRAPHY DOMINANCE: Right Dominant LEFT HEART ASSESSMENT Left Ventricular Ejection Fraction: by LV Gram 55 % Normal Left Ventricular systolic function There appears to be a shunt between the left ventricle and right ventricle and atrium. Normal left v entricular pressures are noted. Elevated right ventricular systolic pressure of 90 mmHg noted. Unfo rtunately oximetry saturation was not obtained in the right atrium or ventricle. RIGHT HEART ASSESSMENT RV: 92/6 13 RA: 07/08 10 Right Heart pressures - elevated Septal Defect - Ventricular LEFT MAIN: Mild calcification LEFT ANTERIOR DESCENDING ARTERY: Mild luminal irregularities less than 30% CIRCUMFLEX ARTERY: Large calcified vessel which is ectatic coming of the left main coronary artery an d appears to make a connection between the junction of the right atrium and right ventricle suggestiv e of a coronary artery to RV?RA chamber shunt. No obvious stenosis noted RIGHT CORONARY ARTERY: Mild luminal irregularities MID RCA: 40 % Stenosis COMPLICATIONS No Complications PROCEDURE MEDICATIONS Versed 1 mg IV Fentanyl 25 mcg IV Tylenol 650 mg PO 01/28/2020 13:09:12 SUMMARY OF HEMODYNAMIC DATA Time AIR REST ECG 08:32:37 RA 07/08 (10) SV 11:07:17 RV 92/6, 13 11:07:57 AO 129/72 (97) SA 11:16:48 AO 132/73 (98) 11:22:46 LV 140/14, 18 11:35:43 LV 142/14, 17 11:36:00 LV 137/15, 18 11:40:21 LV 137/15, 18 11:40:29 LVp 138/14, 20 11:40:34 AOp 142/75 (103) 11:40:39 Label % O2 Pres/Loc Time AIR REST AO 93 PV 11:54:13 Signed By Burak Harrington MD On 01/28/2020 2:00:34 PM Burak Harrington MD
[2020-01-31 07:26] LABS: Base Excess 0 mmol/L (-2 to +2); Bicarbonate 24.5 mmol/L (22-26); PO2 66 mmHG (75-100); SO2 93 % (95-99); Total Carbon Dioxide 26 mmol/L; pCO2 37.6 mmHg (35-45); pH 7.42 (7.35-7.45)
== END 2020-01-28 16:12 | disposition home or self-care (01) ==
LOC: CLSP 07:55
PROVIDERS: PCP Family Medicine; Referring Provider Internal Medicine Cardiovascular Disease; Visit Provider Internal Medicine Cardiovascular Disease
DX: I25.10 Atherosclerotic heart disease of native coronary artery without angina pectoris (principal); I27.21 Secondary pulmonary arterial hypertension; I42.8 Other cardiomyopathies; I48.0 Paroxysmal atrial fibrillation; I11.0 Hypertensive heart disease with heart failure; I50.40 Unspecified combined systolic (congestive) and diastolic (congestive) heart failure; I50.810 Right heart failure, unspecified; I48.92 Unspecified atrial flutter; I47.2 Ventricular tachycardia; E78.5 Hyperlipidemia, unspecified; E11.9 Type 2 diabetes mellitus without complications; M19.90 Unspecified osteoarthritis, unspecified site; E66.01 Morbid (severe) obesity due to excess calories; Z88.1 Allergy status to other antibiotic agents; Z88.2 Allergy status to sulfonamides; Z79.82 Long term (current) use of aspirin; Z79.02 Long term (current) use of antithrombotics/antiplatelets; Z79.84 Long term (current) use of oral hypoglycemic drugs; Z79.899 Other long term (current) drug therapy; Z87.891 Personal history of nicotine dependence
CPT/HCPCS: 93005; 93460; 99152; 99153; J7040; Q9967; C1751; C1769; C1894

== ENCOUNTER → 2020-02-21 11:17 | Outpatient (CLI) | payer MEDICARE, SELFPAY ==
[2020-02-09 14:34] VITALS: BMI 37.9
[2020-02-21 12:27] LABS: Anion Gap 9 (5-15); BUN 39 mg/dL (7-18); BUN/Creat Ratio 26.2 RATIO (10-20); Calcium,Total 9.3 mg/dL (8.5-10.1); Chloride 100 mmol/L (98-107); Creatinine, Serum 1.49 mg/dL (0.55-1.02); EST Glomerular Filtration Rate 36 mL/min (>60); Est Glom Filt Rate - Afr Amer 44 mL/min (>60); Glucose 151 mg/dL (74-106); Potassium 4.3 mmol/L (3.5-5.1); Sodium Level 135 mmol/L (136-145)
== END ==
PROVIDERS: PCP Family Medicine; Referring Provider Family Medicine; Visit Provider Family Medicine
DX: N18.9 Chronic kidney disease, unspecified (principal)
CPT/HCPCS: 36415; 80048

== ENCOUNTER → 2020-08-22 09:28 | Outpatient (CLI) | payer MEDICARE, SELFPAY ==
[2020-08-22 08:40] VITALS: BMI 39.6
[2020-08-22 12:16] LABS: Hemoglobin 12.7 g/dL (12.0-15.0); Mean Corpuscular Hgb 29.1 pg (27.0-32.0); Mean Platelet Vol. 9.3 fl (6.2-12.0); Platelet Count 272 K/mm3 (150-450); RBC Distribution Width CV 17.4 % (11.6-14.6); RBC Distribution Width SD 58.6 fl (35.1-43.9); Red Blood Count 4.36 M/mm3 (4.2-5.4); White Blood Count 6.5 K/mm3 (4.4-11.0)
[2020-08-22 12:55] LABS: AST(SGOT) 17 U/L (15-37); Alanine Aminotransfer ALT/SGPT 30 U/L (13-56); Albumin, Serum 3.9 g/dL (3.2-5.0); Alkaline Phosphatase 76 U/L (45-117); Anion Gap 8 (5-15); BUN 43 mg/dL (7-18); BUN/Creat Ratio 29.1 RATIO (10-20); Calcium,Total 9.3 mg/dL (8.5-10.1); Chloride 103 mmol/L (98-107); Creatinine, Serum 1.48 mg/dL (0.55-1.02); EST Glomerular Filtration Rate 37 mL/min (>60); Est Glom Filt Rate - Afr Amer 44 mL/min (>60); Globulin 3.8 g/dL (2.2-4.2); Glucose 126 mg/dL (74-106); Potassium 4.2 mmol/L (3.5-5.1); Protein, Total 7.7 g/dL (6.4-8.2); Sodium Level 137 mmol/L (136-145); Thyroid Stim Hormone (TSH) 1.61 uIU/mL (0.358-3.74)
== END ==
PROVIDERS: PCP Family Medicine; Referring Provider Family Medicine; Visit Provider Family Medicine
DX: E11.9 Type 2 diabetes mellitus without complications (principal); R53.83 Other fatigue
CPT/HCPCS: 36415; 80053; 84443; 85027

== ENCOUNTER → 2020-08-24 14:41 | Outpatient (CLI) | payer MEDICARE, SELFPAY | PROVIDERS: PCP Family Medicine; Referring Provider Internal Medicine; Visit Provider Internal Medicine | DX: R50.9 Fever, unspecified (principal) | CPT/HCPCS: 87635; U0003 ==

== ENCOUNTER 2020-09-29 16:42 | Emergency (ER) | payer MEDICARE, SELFPAY ==
[2020-09-29 16:03] VITALS: BMI 41.5
[2020-09-29 16:43] VITALS: BP 140/68; PULSE 77; RESP 18; TEMP 35.7; O2SAT 98; BMI 41.5
--- NOTE | 2020-09-29 17:32 | ED.VIS.GEN ---
History of Present Illness Chief Complaint: Cellulitis Detail of Chief Complaint: Right foot pain Informant: Patient Onset: Yesterday Narrative: She presents with right foot pain. She states that she has diabetes and poor circulation to her feet. She wears thick socks to bed knowing that if her feet get cold she will get cramps. She states she woke yesterday morning to pain in her right foot. Throughout the day it seemed to get better. When she did take her sock off she noted her foot was somewhat red and swollen. Symptoms were better last night she was able to sleep. [facility] today and they felt that her foot was cold and numb along the lateral surface and sent her to the hospital to rule out an occlusion. Patient states the lateral portion of her foot is always numb from a sciatic condition several years ago. - Past Medical History (1) History of DVT (deep vein thrombosis) Status: Chronic (2) History of pulmonary embolism Status: Chronic (3) Combined systolic and diastolic congestive heart failure Status: Chronic (4) Diabetes type 2, controlled Status: Chronic (5) Essential (primary) hypertension Status: Chronic (6) Hyperlipidemia Status: Chronic (7) Non-ischemic cardiomyopathy Status: Chronic (8) Paroxysmal atrial fibrillation Status: Chronic (9) Atypical atrial flutter Status: Resolved Comment: RFA w/ PVI 2012, RFA w/ PVI 2015 Past Medical History - Allergies and Home Meds Allergies/Adverse Reactions: Allergies erythromycin base Allergy (Verified 09/29/20 16:45) Hives Sulfa (Sulfonamide Antibiotics) Adverse Reaction (Verified 09/29/20 16:45) Hives Primary Care Physician: Gerard Kothari DO [Primary Care Provider] - As soon as possible Surgical History: gastric bypass, - - Cardiac ablation Smoking Status: Former smoker Review of Systems General: Denies: Chills, Fever Eyes: Denies: Visual changes - bilaterally ENT: Denies: Bilateral ear pain Cardiovascular: Denies: Chest pain Respiratory: Denies: Dyspnea, Cough Gastrointestinal: Denies: Abdominal pain Musculoskeletal: Reports: Swelling, Extremity Pain Skin: Denies: Rash Hematologic: Denies: Easy bruising, Easy bleeding Allergy: Denies: Uticaria Physical Exam Vital Signs/Narrative: Vital Signs Temp Pulse Resp BP Pulse Ox 09/29/20 16:43 96.2 F L 77 18 140/68 H 98 Inital Vital Signs reviewed: Yes General: Well nourished, Well developed Head: Normocephalic ENT: Moist mucous membranes Neck: Supple Cardiovascular: Regular rate, Regular rhythm Respiratory: No distress, CTA bilaterally Abdomen: Soft, Nontender Extremities: - - Toes are cool to the touch bilaterally. She does have strong DP pulses bilaterally. Decreased sensation to light touch on the lateral right foot which is chronic and unchanged per patient report. Neurological: Alert, Oriented x3, Normal Strength Psychological: Normal affect Diagnostic/Tx/Re-eval Impressions Abdomen/Pelvis CTA 09/29/20 18:30 IMPRESSION: 1. Bilateral infrapopliteal atherosclerosis, unable to detect and characterize focal stenosis. 2. Patent popliteal and more proximal vessels. 3. No abdominal acute findings. Electronically Signed: Naima Paulino MD at 19:22 EST Tel , Service support , 09/29/20 18:30 CTA Abd w/Runoff W/WO Contrast [CT] Stat Laboratory Results 09/29/20 09/29/20 09/29/20 17:45 17:45 17:45 WBC 9.2 RBC 4.19 L Hgb 12.3 Hct 39.9 MCV 95.2 MCH 29.4 MCHC 30.8 L RDW Std Deviation 65.8 H RDW Coeff of Mikie 18.9 H Plt Count 227 MPV 9.2 Immature Gran % (Auto) 0.400 Neut % (Auto) 67.0 Lymph % (Auto) 19.4 [place] % (Auto) 9.0 Eos % (Auto) 3.7 Baso % (Auto) 0.5 Absolute Neuts (auto) 6.1 Absolute Lymphs (auto) 1.78 Nucleated RBC % 0 Platelet Estimate ADEQUATE RBC Morphology N CHROM Anisocytosis 1+ Macrocytosis 1+ D-Dimer Quant (PE/DVT) 1.39 H* Sodium 137 Potassium 4.7 Chloride 102 Carbon Dioxide 27.0 Anion Gap 8 BUN 30 H Creatinine 1.57 H Estim Creat Clear Calc 27.56 Est GFR (MDRD) Af Amer 41 L Est GFR (MDRD) Non-Af 34 L BUN/Creatinine Ratio 19.1 Glucose 102 Calcium 9.6 - Medical Decision Making Patient presents on a Friday afternoon when I do not have access to getting arterial ultrasounds of the legs. Patient does have palpable distal pulses for me. CTA of the lower extremity was obtained. She is very small caliber vessels with atherosclerotic disease below the knees. They do not see a focal occlusion. This is discussed with the patient. I do feel that she will need arterial ultrasounds as an outpatient. I will speak with her PCP or on-call coverage tonight to help arrange this. In the meantime she will be treated the course of doxycycline as she does have erythema and slight warmth to her foot and may very well have early cellulitis. ED Disposition - Plan for ED Patient: Disposition: Home or Assisted Living Diagnosis: Cellulitis Instructions: ED Cellulitis Prescriptions: Fluconazole [Diflucan] 150 mg PO X1 #1 tab Transmission Status: Pending to [facility] Doxycycline 100 mg PO BID #20 cap Transmission Status: Received by [facility] Referrals: Gerard Kothari DO [Primary Care Provider] - As soon as possible
[2020-09-29 17:53] LABS: Absolute Lymphocyte Count 1.78 X10^3/uL (0.83-4.51); Absolute Neutrophil Count 6.1 X10^3/uL (2.0-7.7); Basophil# 0.05 X10^3/uL; Basophil% 0.5 % (0-1); Eosinophil# 0.34 X10^3/uL; Eosinophils% 3.7 % (0-5); Hematocrit 39.9 % (37-47); Hemoglobin 12.3 g/dL (12.0-15.0); Lymphocyte # 1.78 X10^3/ul (4.0); Lymphocyte % 19.4 % (19-41); Mean Corp Hgb Conc 30.8 g/dL (32-36); Mean Corpuscular Hgb 29.4 pg (27.0-32.0); Mean Corpuscular Volume 95.2 fL (81-99); Mean Platelet Vol. 9.2 fl (6.2-12.0); Monocyte# 0.83 X10^3/uL; NRBC Flagged by Analyzer 0 % (0-5); Neutrophil # 6.14 X10^3/uL (2.7-7.7); POSITIVE MORPHOLOGY YES; Platelet Count 227 K/mm3 (150-450); RBC Distribution Width CV 18.9 % (11.6-14.6); RBC Distribution Width SD 65.8 fl (35.1-43.9); Red Blood Count 4.19 M/mm3 (4.2-5.4); White Blood Count 9.2 K/mm3 (4.4-11.0)
[2020-09-29 18:03] LABS: Differential Indicated SCAN CRITERIA MET
[2020-09-29 18:07] LABS: Anion Gap 8 (5-15); BUN 30 mg/dL (7-18); BUN/Creat Ratio 19.1 RATIO (10-20); Calcium,Total 9.6 mg/dL (8.5-10.1); Chloride 102 mmol/L (98-107); Creatinine, Serum 1.57 mg/dL (0.55-1.02); EST Glomerular Filtration Rate 34 mL/min (>60); Est Glom Filt Rate - Afr Amer 41 mL/min (>60); Estimated Creatinine Clearance 27.56 ml/min; Glucose 102 mg/dL (74-106); Potassium 4.7 mmol/L (3.5-5.1); Sodium Level 137 mmol/L (136-145)
[2020-09-29 18:16] LABS: D-Dimer Quantitative (DVT/PE) 1.39 FEU/ug/m (0.27-0.49)
--- NOTE | 2020-09-29 18:30 | CT_ITS ---
STUDY: CTA OF THE ABDOMINAL AORTA AND BILATERAL LOWER EXTREMITIES REASON FOR EXAM: Female, 74 years old. RT FOOT SWELLING AND REDNESS RADIATION DOSAGE (If Supplied By Facility): CTDIvol = ( 13.24 ) mGy, DLP = ( 1457.88 ) mGycm TECHNIQUE: Axial CT angiography multi-detector data acquisition was obtained from the to the following intravenous administration of IV 100mL Isovue-370. Axial images and MIP images were reconstructed from the axial data set. Post-processing of the angiographic images was performed, with multiplanar reformation and 3D reconstruction. Individualized dose optimization techniques were used for this CT. TECHNICAL QUALITY: Good COMPARISON: None. Descriptors of Narrowing: None (0%) Mild (< 50%) Moderate (50-70%) Severe (70-90%) Subtotal/Total Occlusion (90-100%) Non-Evaluable (technically non-diagnostic FINDINGS: Abdominal aorta is normal with minor atherosclerosis. Visceral branches are patent. Bilateral common iliac, external and internal iliac, common femoral, superficial femoral and profunda femoris arteries are patent. Popliteal arteries are not visualized at the level of bilateral knee prosthesis. Immediately below the prosthesis the popliteal arteries are well-perfused. Infrapopliteal vessels are small and diffusely atherosclerotic and suboptimally evaluated in part due to lack of coronal and sagittal reconstructions. All 3 vessels are present and perfused. Assessment of degree of stenosis is not reliable. There are multiple bilateral small renal calyceal stones, less than 5 mm. There is no hydronephrosis. Liver and adrenals and pancreas are normal. There is no intestinal obstruction. There is no abdominal inflammation, free fluid or collections. Bladder and uterus are normal. Pelvis, femora and tibiae and fibulae are intact and located. CT/CTA Abd w/Runoff W/WO Contrast IMPRESSION: 1. Bilateral infrapopliteal atherosclerosis, unable to detect and characterize focal stenosis. 2. Patent popliteal and more proximal vessels. 3. No abdominal acute findings. Electronically Signed: Naima Paulino MD at 19:22 EST Tel , Service support ,
[2020-09-29 18:35] LABS: Anisocytosis 1+; Macrocytosis 1+; Platelet Estimate ADEQUATE (ADEQ); Red Cell Morphology N CHROM NORMAL (NORM C&C)
[2020-09-29 18:58] VITALS: BP 142/79; PULSE 80; RESP 18; TEMP 36.7; O2SAT 98
[2020-09-29 19:00] VITALS: BP 136/64; PULSE 60; RESP 18; TEMP 36.6; O2SAT 95
[2020-09-29] MEDS: Doxycycline 100 MG CAPSULE PO (20:43)
== END 2020-09-29 20:49 | disposition home or self-care (01) ==
PROVIDERS: Emergency Provider Emergency Medicine; PCP Family Medicine
DX: L03.119 Cellulitis of unspecified part of limb (principal); E11.9 Type 2 diabetes mellitus without complications; I11.0 Hypertensive heart disease with heart failure; I50.42 Chronic combined systolic (congestive) and diastolic (congestive) heart failure; I48.0 Paroxysmal atrial fibrillation; Z98.84 Bariatric surgery status; Z87.891 Personal history of nicotine dependence; Z86.718 Personal history of other venous thrombosis and embolism; Z86.711 Personal history of pulmonary embolism; Z79.84 Long term (current) use of oral hypoglycemic drugs; Z79.82 Long term (current) use of aspirin
CPT/HCPCS: 73706; 75635; 80048; 85025; 85379; 99285; Q9967; A4216

== ENCOUNTER → 2020-10-13 12:48 | Outpatient (CLI) | payer MEDICARE, SELFPAY ==
[2020-09-29 16:43] VITALS: BMI 41.5
--- NOTE | 2020-10-13 12:53 | ART_ITS ---
Reason For Study: Claudication Procedure A bilateral lower extremity continuous wave Doppler with analog waveform analysis,segmental pressures,and ankle brachial indexes without exercise. Left Segmental Pressures Left brachial= 137mmHg. Left posterior tibial artery = 139mmHg. Left dorsalis pedis artery = 158mmHg. Left digit = 123 mmHg. The left dorsalis pedis waveforms are triphasic. The left posterior tibial artery waveforms are triphasic. Right Segmental Pressures Right brachial= 138mmHg. Right posterior tibial artery = 196mmHg. Right dorsalis pedis artery = 183mmHg. Right digit = 121 mmHg. The right dorsalis pedis waveforms are triphasic. The right posterior tibial artery waveforms are triphasic. Indices The right ankle brachial index by the dorsalis pedis is 1.33. The right ankle brachial index by the posterior tibial artery is 1.42. The right digital-brachial index is 0.88. The left ankle brachial index by the dorsalis pedis is 1.14. The left ankle brachial index by the posterior tibial artery is 1.01. The left digital-brachial index is 0.89. Interpretation Summary Resting ankle-brachial indices appear bilaterally normal. Normal bilateral dorsalis pedis and posterior tibialis triphasic doppler waveforms Normal bilateral digitial brachial indices Ordering Physician: Gerard Kothari Referring Physician: Gerard Kothari Performed By: Jojo Drummond RVT
== END ==
PROVIDERS: PCP Family Medicine; Referring Provider Family Medicine; Visit Provider Family Medicine
DX: M79.671 Pain in right foot (principal); I73.9 Peripheral vascular disease, unspecified
CPT/HCPCS: 93923

== ENCOUNTER → 2021-01-30 14:04 | Outpatient (CLI) | payer MEDICARE, SELFPAY ==
[2021-01-30 13:38] VITALS: BMI 41.5
[2021-01-30 15:26] LABS: Vitamin D,25 Hydroxy 67.6 ng/mL
[2021-01-30 15:27] LABS: Anion Gap 9 (5-15); BUN 39 mg/dL (7-18); Calcium,Total 9.1 mg/dL (8.5-10.1); Chloride 105 mmol/L (98-107); Creatinine, Serum 1.56 mg/dL (0.55-1.02); EST Glomerular Filtration Rate 35 mL/min (>60); Est Glom Filt Rate - Afr Amer 42 mL/min (>60); Glucose 162 mg/dL (74-106); Potassium 4.7 mmol/L (3.5-5.1); Sodium Level 137 mmol/L (136-145)
== END ==
PROVIDERS: PCP Family Medicine; Referring Provider Family Medicine; Visit Provider Family Medicine
DX: N18.2 Chronic kidney disease, stage 2 (mild) (principal); M65.30 Trigger finger, unspecified finger; E11.9 Type 2 diabetes mellitus without complications
CPT/HCPCS: 36415; 80048; 82306

== ENCOUNTER → 2021-03-28 12:47 | Outpatient (CLI) | payer MEDICARE, SELFPAY ==
[2021-03-15 13:56] VITALS: BMI 41.5
--- NOTE | 2021-03-28 12:50 | ECHOD_ITS ---
Reason For Study: Dyspnea/SOB Procedure This was a 2D Doppler, Color Flow transthoracic echocardiogram. The study was technically difficult. Did not use Definity due to increased PAP. Exam performed in department. Left Ventricle Normal LV size. D shaped septum in systole and diastole. Mild concentric left ventricular hypertrophy. Based upon the 2D echocardiographic images obtained there appears normal left ventricular size and wall motion with borderline low LV systolic function. The estimated ejection fraction is 50 %. Unable to assess diastolic dysfunction. Right Ventricle Severely dilated right ventricle. Severe global right ventricular systolic dysfunction. Atria The left atrium is severely enlarged. The right atrium is severely enlarged. No doppler evidence for ASD. Mitral Valve There is no mitral annular calcification. Normal mitral valve. Mild-Moderate (1-2+) mitral valve insufficiency. Tricuspid Valve Normal tricuspid valve. Mild to moderate (1-2+) tricuspid valve insufficiency. Right ventricular systolic pressure estimated to be 87 mmHg. Aortic Valve Trisinus/trileaflet aortic valve. Mild diffuse aortic valve thickening. Pulmonic Valve The pulmonic valve is not well visualized. Trivial pulmonic valve insufficiency. Great Vessels The aortic root is not well visualized. Pericardium/Pleural No pericardial effusion. MMode/2D Measurements & Calculations LVIDd: 5.5 cm IVSd: 1.3 cm LAV(MOD-bp): 102.5 ml LVIDs: 3.4 cm LVPWd: 1.3 cm LAV(MOD-bp) Indexed: 47.4 ml/m2 RVDd: 5.5 cm FS: 37.8 % LAV(MOD-sp2): 74.7 ml LAV(MOD-sp4): 117.8 ml LA dimension(2D): 4.2 cm LA A4 area: 33.1 cm2 RA A4 area: 33.2 cm2 Doppler Measurements & Calculations MV E max felecia: 81.1 cm/sec Ao V2 max: 134.6 cm/sec LV V1 max: 96.1 cm/sec Ao max P.5 mmHg LV V1 max P.7 mmHg Ao V2 mean: 100.7 cm/sec Ao mean P.4 mmHg Ao V2 VTI: 20.1 cm PA V2 max: 79.8 cm/sec TR max felecia: 458.5 cm/sec TR max P.1 mmHg ECHO/Echo Complete Interpretation Summary The study was technically difficult. Based upon the 2D echocardiographic images obtained there appears normal left v entricular size and wall motion with borderline low LV systolic function. The estimated ejection fraction is 50 %. D shaped septum in systole and diastole. Mild concentric left ventricular hypertrophy. Severely dilated right ventricle. Severe global right ventricular systolic dysfunction. The left atrium is severely enlarged. The right atrium is severely enlarged. Mild-Moderate (1-2+) mitral valve insufficiency. Mild to moderate (1-2+) tricuspid valve insufficiency. Mild diffuse aortic valve thickening. Trivial pulmonic valve insufficiency. Right ventricular systolic pressure estimated to be 87 mmHg c/w severe pulmonar y hypertension. Unable to assess diastolic dysfunction. Ordering Physician: Gerard Kothari Referring Physician: Gerard Kothari Performed By: Emi Ace, VALARIE, RVT
--- NOTE | 2021-03-28 14:20 | RAD_ITS ---
EXAM DESCRIPTION: PA and lateral chest CHEST CLINICAL HISTORY: 75 years Female, dyspnea dyspnea COMPARISON: Previous chest obtained on 01/24/2020 FINDINGS: The thorax is intact. The heart is enlarged and mediastinum appears to be within normal limits. The lungs appear to be well areated without evidence of pneumonic consolidation or pleural effusion. IMPRESSION: Cardiomegaly is identified, otherwise the chest shows no acute pathology. Electronically Signed: Timmy Cavazos DO at 14:59 EDT Tel , Service support , RAD/Chest PA and Lateral
== END ==
PROVIDERS: PCP Family Medicine; Referring Provider Family Medicine; Visit Provider Family Medicine
DX: R06.00 Dyspnea, unspecified (principal); I47.2 Ventricular tachycardia; R06.02 Shortness of breath
CPT/HCPCS: 71046; 93306

== ENCOUNTER 2021-05-21 08:50 | Inpatient (IN) | payer MEDICARE, SELFPAY ==
[2021-05-21] VITALS (12 sets, daily range): BP systolic 117–135; BP diastolic 62–110; PULSE 61–79; RESP 14–20; TEMP 36.3–36.8; O2SAT 91–99; BMI 39.4; BMI 41.3
--- NOTE | 2021-05-21 09:12 | ED.RN ---
Pt. presents with RLE large blister to anterior portion of calf. pt. states they woke up and blister was there. Denies any injury to area. +2 pitting edema to foot. Pt. says shortness of breath has been worse in last two weeks, and PCP has ordered home oxygen at that point. 2L NC. Pt. oxygen stable.
--- NOTE | 2021-05-21 09:28 | EKG12_ITS ---
Test Reason : Blood Pressure : / mmHG Vent. Rate : 065 BPM Atrial Rate : 065 BPM P-R Int : 228 ms QRS Dur : 154 ms QT Int : 470 ms P-R-T Axes : 060 111 260 degrees QTc Int : 488 ms Sinus rhythm with sinus arrhythmia with 1st degree A-V block Right bundle branch block T wave abnormality, consider inferolateral ischemia Abnormal ECG Confirmed by LIN GUTIÉRREZ, SERA ([id number]), supervising editor trailer NUNU LOPEZ ([id number]) on 05/23/2021 11:23:21 AM Referred By: ESME Confirmed By:SERA CEBALLOS MD
--- NOTE | 2021-05-21 09:34 | EDS_ITS ---
HPI History of Present Illness Chief Complaint: Lower Extremity Injury Informant: patient Onset/Context/Timing Onset: Days (5) Context: Gradual Onset Timing: Continuous Quality: Dyspnea on exertion Location: Chest Worsened by: Exertion Relieved by: Nothing Narrative Narrative: Patient presents with shortness of breath that has been getting worse over the last 5 days. Patient states she is having more shortness of breath with exertion. Patient denies any fevers or chills. Patient denies any cough. Patient states she feels weak. Patient states she has difficulty lifting her legs into the bed. Patient states she has been on home oxygen for the past 2 weeks. Patient states today when she woke up she noted a blister on her right leg. Patient denies any trauma or injury to the leg. 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 Deep vein thrombosis Diabetes type 2, controlled Diastolic dysfunction Epidermal cyst of vulva Essential (primary) hypertension History of pneumonia History of pulmonary embolism (2006) Hyperlipidemia Moderate right ventricular systolic dysfunction Morbid obesity Vicente's neuroma of left foot Non-ischemic cardiomyopathy Nonrheumatic mitral (valve) insufficiency Nonsustained ventricular tachycardia Obstructive sleep apnea Osteoarthritis Paroxysmal atrial fibrillation Patent foramen ovale Right ventricular dilation Seasonal allergies Secondary pulmonary arterial hypertension Trigger finger, left little finger Type 2 diabetes mellitus Home Medications allergen PINE IGE 1 unit MC DAILY 11/06/17 [History Last Taken 05/20/21] ibuprofen 200 mg tablet 1 tab PO DAILY PRN PRN 11/06/17 [History Last Taken 05/19/21] aspirin 81 mg tablet,delayed release 81 mg PO DAILY 01/21/20 [History Last Taken 05/20/21] metoprolol succinate 50 mg tablet,extended release 24 hr 50 mg PO BID #180 tab 09/15/20 [Rx Last Taken 05/20/21] furosemide 40 mg tablet 40 mg PO .COMPLEX #135 tab 10/26/20 [Rx Last Taken 05/20/21] spironolactone 50 mg tablet 50 mg PO DAILY #90 tab 12/01/20 [Rx Last Taken 05/20/21] losartan 50 mg tablet 50 mg PO DAILY #90 tab 12/11/20 [Rx Last Taken 05/20/21] ascorbic acid (vitamin C) 500 mg tablet 500 mg PO DAILY 03/15/21 [History Last Taken 05/20/21] cholecalciferol (vitamin D3) 25 mcg (1,000 unit) capsule 25 mcg PO DAILY 03/15/21 [History Last Taken 05/20/21] metformin 500 mg tablet 500 mg PO TID #270 tab 03/19/21 [Rx Last Taken 05/20/21] hydrocodone-acetaminophen 5-325mg 5mg-325mg 1 tab PO Q8H PRN 30 Days #90 tab 05/04/21 [Rx Last Taken 05/20/21] calcium citrate-vitamin D3 [Calcium Citrate + D] 1 tab PO DAILY 05/21/21 [History Last Taken 05/20/21] diphenhydramine HCl [Benadryl] 50 mg PO QHS 05/21/21 [History Last Taken 05/20/21] duloxetine 30 mg PO DAILY 05/21/21 [History Last Taken 05/20/21] ferrous sulfate 325 mg PO DAILY 05/21/21 [History Last Taken 05/20/21] magnesium 500 mg PO BID 05/21/21 [History Last Taken 05/20/21] multivitamin 1 tab PO DAILY 05/21/21 [History Last Taken 05/20/21] omeprazole 40 mg PO DAILY 05/21/21 [History Last Taken 05/20/21] Allergy/AdvReac Type Severity Reaction Status Date / Time erythromycin base Allergy Hives Verified 05/21/21 08:55 Sulfa (Sulfonamide AdvReac Hives Verified 05/21/21 08:55 Antibiotics) Family History Father Myocardial infarction Mother Heart disease Myocardial infarction Surgical History History of bilateral knee replacement History of History of cardioversion (09/23/12) History of carpal tunnel surgery of right wrist History of cholecystectomy History of gastric bypass History of left heart catheterization (10/2000) History of radiofrequency ablation procedure for cardiac arrhythmia (10/26/15) History of right and left heart catheterization (01/28/20) History of shoulder surgery Social History Smoking Status: Former smoker how long ago did patient quit smokin alcohol intake: never substance use type: does not use what type of physical activity do you participate in: none ROS ROS ED Constitutional Constitutional ED: Denies chills or fever(s) Eyes Eyes: Denies blurry vision or change in vision ENT ENT ED: Denies rhinorrhea or sore throat Cardiovascular Cardiovascular: Denies chest pain or palpitations Respiratory/Chest Respiratory/Chest: Reports dyspnea; Denies cough Gastrointestinal Gastrointestinal: Denies nausea or vomiting Genitourinary Genitourinary ED: Denies dysuria or hematuria Musculoskeletal Musculoskeletal: Denies back pain or neck pain Integumentary Denies abscess or rash Neurologic Neurologic: Reports weakness; Denies headache(s) Allergic/Immunologic Allergic/Immunologic ED: Denies mouth swelling or urticaria EXAM Physical Exam Const Vital Signs: 05/21/21 08:51 05/21/21 11:15 05/21/21 13:44 Temperature 98.0 F Temperature Source Temporal Pulse Rate 64 61 68 Respiratory Rate 16 14 16 Blood Pressure 132/101 H 120/71 129/77 H Blood Pressure Mean 111 87 94 Pulse Ox 98 99 Oxygen Delivery Method Nasal Cannula Nasal Cannula Oxygen Flow Rate (L/min) 2 2 05/21/21 15:27 05/21/21 17:11 Temperature Temperature Source Pulse Rate 69 76 Respiratory Rate 14 18 Blood Pressure 127/110 H 128/109 H Blood Pressure Mean 115 115 Pulse Ox 98 97 Oxygen Delivery Method Nasal Cannula Nasal Cannula Oxygen Flow Rate (L/min) 2 2 Positive well nourished, well developed and obese General Appearance ED: well developed Nutritional Appearance: obese HEENT Reports moist mucous membranes Neck supple and no JVD Chest Wall inspection of chest normal and palpation of chest normal Resp normal respiratory effort and clear to auscultation bilaterally Cardio regular rate and regular rhythm GI normal to inspection, nondistended, normoactive bowel sounds and non-tender Palpation: soft Extremity Extremity Narrative: There is 2+ pitting edema of the lower extremities bilaterally. There is a large bulla noted over the lateral aspect of the right lower leg. It is filled with serous fluid. There is no bleeding noted. There is no surrounding erythema. There is no drainage. General Extremety ED: Yes edema General Extremity: edema Neuro oriented x3, CN's II-XII intact bilaterally and no sensory deficits noted Sensorium / Orientation: alert Motor Exam: strength 5/5 throughout Psych mental status grossly normal MDM MDM MDM Narrative Medical decision making narrative: EKG was obtained. On my interpretation, showed normal sinus rhythm with first-degree AV block with a rate of 65. LA interval was prolonged at 228. QRS and QTc intervals were normal. [place] was normal. There are nonspecific ST-T wave changes in leads V1 through V6. These were unchanged compared to previous EKG. CBC was within normal limits. Lactate was elevated at 2.3. Comprehensive metabolic profile showed an elevated creatinine of 2.02. BUN was elevated at 56. These were increased from previous results. Troponin was normal. BNP was elevated at 1345.5. Patient was given a dose of Lasix here. Case was discussed with the hospitalist. She will admit the patient to her service. Patient understood and was agreeable with the plan. All questions were answered. Dr. Lehman, hospitalist, discussed the case with Dr. Harrington, dumper. He recommended transferring the patient to a higher level of care because of her coronary artery anomaly. Patient has an appointment with Dr. Ruiz at the [facility] on 06/13/2021. Case was discussed with Dr. Navarrete from [facility]. He accepted the patient to be transferred. However, there were no beds available at [facility]. Patient was then to be transferred to [facility]. There are no beds available there. Case was discussed with the hospitalist again. She will admit the patient here pending transfer. Case was discussed with Dr. Harrington. He is agreeable to admitting the patient here. He states he will probably not need to see the patient in consultation. Lab Data Attestation: I reviewed the patient's lab results. Labs: Laboratory Results - last 24 hr 05/21/21 05/21/21 05/21/21 09:55 09:55 09:55 WBC 6.5 RBC 4.52 Hgb 12.4 Hct 41.5 MCV 91.8 MCH 27.4 MCHC 29.9 L RDW Std Deviation 58.1 H RDW Coeff of Mikie 18.2 H Plt Count 238 MPV 9.3 Immature Gran % (Auto) 0.500 Neut % (Auto) 59.0 Lymph % (Auto) 27.0 [place] % (Auto) 9.3 Eos % (Auto) 3.4 Baso % (Auto) 0.8 Absolute Neuts (auto) 3.8 Absolute Lymphs (auto) 1.75 Nucleated RBC % 0.3 Sodium Cancelled Potassium Cancelled Chloride Cancelled Carbon Dioxide Cancelled Anion Gap Cancelled BUN Cancelled Creatinine Cancelled Estim Creat Clear Calc Cancelled Est GFR (MDRD) Af Amer Cancelled Est GFR (MDRD) Non-Af Cancelled BUN/Creatinine Ratio Cancelled Glucose Cancelled Lactic Acid 2.3 H* Calcium Cancelled Total Bilirubin Cancelled AST Cancelled ALT Cancelled Alkaline Phosphatase Cancelled Troponin I High Sens Cancelled B-Natriuretic Peptide Total Protein Cancelled Albumin Cancelled Globulin Cancelled Albumin/Globulin Ratio Cancelled 05/21/21 05/21/21 05/21/21 09:55 11:03 11:18 WBC RBC Hgb Hct MCV MCH MCHC RDW Std Deviation RDW Coeff of Mikie Plt Count MPV Immature Gran % (Auto) Neut % (Auto) Lymph % (Auto) [place] % (Auto) Eos % (Auto) Baso % (Auto) Absolute Neuts (auto) Absolute Lymphs (auto) Nucleated RBC % Sodium Cancelled 136 Potassium Cancelled 5.1 Chloride Cancelled 101 Carbon Dioxide Cancelled 26.0 Anion Gap Cancelled 9 BUN Cancelled 56 H Creatinine Cancelled 2.02 H Estim Creat Clear Calc Cancelled 22.87 Est GFR (MDRD) Af Amer Cancelled 31 L Est GFR (MDRD) Non-Af Cancelled 26 L BUN/Creatinine Ratio Cancelled 27.7 H Glucose Cancelled 119 H Lactic Acid Calcium Cancelled 9.6 Total Bilirubin Cancelled 1.00 AST Cancelled 26 ALT Cancelled 32 Alkaline Phosphatase Cancelled 98 Troponin I High Sens Cancelled 21 B-Natriuretic Peptide 1345.5 H Total Protein Cancelled 7.8 Albumin Cancelled 3.9 Globulin Cancelled 3.9 Albumin/Globulin Ratio Cancelled 1.0 05/21/21 05/21/21 14:02 14:15 WBC RBC Hgb Hct MCV MCH MCHC RDW Std Deviation RDW Coeff of Mikie Plt Count MPV Immature Gran % (Auto) Neut % (Auto) Lymph % (Auto) [place] % (Auto) Eos % (Auto) Baso % (Auto) Absolute Neuts (auto) Absolute Lymphs (auto) Nucleated RBC % Sodium Potassium Chloride Carbon Dioxide Anion Gap BUN Creatinine Estim Creat Clear Calc Est GFR (MDRD) Af Amer Est GFR (MDRD) Non-Af BUN/Creatinine Ratio Glucose Lactic Acid 1.9 Calcium Total Bilirubin AST ALT Alkaline Phosphatase Troponin I High Sens Cancelled B-Natriuretic Peptide Total Protein Albumin Globulin Albumin/Globulin Ratio Radiography Diagnostic Testing: Radiology Impression Chest X-Ray 05/21/21 10:02 IMPRESSION: Moderate cardiomegaly. Mild degree of CHF with right basilar atelectasis and/or early infiltrate. Electronically Signed: Michael Thomason MD at 10:23 EDT , Service support , EKG Initial EKG: Attestation: I personally reviewed and interpreted this EKG as follows: Interpretation: Sinus Rhythm (With first-degree AV block), No Acute Injury Pattern and RBBB Prior EKG tracings: available for review Prior: Unchanged (01/28/2020) Treatment and Re-Evaluation Vital Sign Attestation:: Vital signs were reviewed prior to admission. They are stable. Discharge Plan Dx/Rx/DC Orders Clinical Impression: Combined systolic and diastolic congestive heart failure, CKD (chronic kidney disease) stage 3, GFR 30-59 ml/min Disposition Disposition: [facility] Care [facility] [place] Discharge Date/Time: 05/21/21 18:02
--- NOTE | 2021-05-21 10:02 | RAD_ITS ---
STUDY: X-RAY CHEST REASON FOR EXAM: Female, 75 years old. Increased shortness of breath. TECHNIQUE: Single AP portable view of the chest. COMPARISON: Comparison is made with prior study dated 03/28/2021. FINDINGS: EKG electrodes are seen. There is evidence of passive congestion and a mild degree of CHF. Mild increased markings at the right lung base suggestive of either atelectasis and/or early infiltrate. There is moderate cardiac enlargement. Normal mediastinum and beata. Normal visualized pulmonary arteries. Normal visualized aortic arch and descending thoracic aorta. There are diffuse degenerative changes of the visualized thoracic spine. Normal visualized ribs, clavicles, and shoulders. There is no demonstrated abnormality of the visualized soft tissue structures of the upper abdomen. RAD/Chest 1 View (Portable) IMPRESSION: Moderate cardiomegaly. Mild degree of CHF with right basilar atelectasis and/or early infiltrate. Electronically Signed: Michael Thomason MD at 10:23 EDT , Service support ,
[2021-05-21 10:05] LABS: Absolute Lymphocyte Count 1.75 X10^3/uL (0.83-4.51); Absolute Neutrophil Count 3.8 X10^3/uL (2.0-7.7); Basophil# 0.05 X10^3/uL; Basophil% 0.8 % (0-1); Eosinophil# 0.22 X10^3/uL; Eosinophils% 3.4 % (0-5); Hematocrit 41.5 % (37-47); Hemoglobin 12.4 g/dL (12.0-15.0); Lymphocyte # 1.75 X10^3/ul (0.83-4.51); Mean Corp Hgb Conc 29.9 g/dL (32-36); Mean Corpuscular Hgb 27.4 pg (27.0-32.0); Mean Corpuscular Volume 91.8 fL (81-99); Mean Platelet Vol. 9.3 fl (6.2-12.0); Monocyte% 9.3 % (0-10); NRBC Flagged by Analyzer 0.3 % (0-5); Neutrophil # 3.82 X10^3/uL (2.7-7.7); Platelet Count 238 K/mm3 (150-450); RBC Distribution Width CV 18.2 % (11.6-14.6); RBC Distribution Width SD 58.1 fl (35.1-43.9); Red Blood Count 4.52 M/mm3 (4.2-5.4); White Blood Count 6.5 K/mm3 (4.4-11.0)
--- NOTE | 2021-05-21 10:43 | NURSING ---
NEED CHEMISTRIES AND TROP REDRAWN. GROSSLY HEMOLIZED LAB WILL REPRINT LABELS
[2021-05-21 10:54] LABS: Lactic Acid 2.3 mmol/L (0.4-1.9)
[2021-05-21 12:09] LABS: AST(SGOT) 26 U/L (15-37); Alanine Aminotransfer ALT/SGPT 32 U/L (13-56); Albumin, Serum 3.9 g/dL (3.2-5.0); Alkaline Phosphatase 98 U/L (45-117); Anion Gap 9 (5-15); BUN 56 mg/dL (7-18); BUN/Creat Ratio 27.7 RATIO (10-20); Calcium,Total 9.6 mg/dL (8.5-10.1); Chloride 101 mmol/L (98-107); Creatinine, Serum 2.02 mg/dL (0.55-1.02); EST Glomerular Filtration Rate 26 mL/min (>60); Est Glom Filt Rate - Afr Amer 31 mL/min (>60); Estimated Creatinine Clearance 22.87 ml/min; Globulin 3.9 g/dL (2.2-4.2); Glucose 119 mg/dL (74-106); Potassium 5.1 mmol/L (3.5-5.1); Protein, Total 7.8 g/dL (6.4-8.2); Sodium Level 136 mmol/L (136-145); Troponin-I HS 21 pg/mL (3.0-54.0)
[2021-05-21 13:22] LABS: BNP,B-Type NATRIURETIC PEPTIDE 1345.5 pg/mL (0-100)
[2021-05-21] MEDS: Furosemide 40 MG/4 ML Vial IV ×2 (13:37→18:58)
--- NOTE | 2021-05-21 14:00 | PCM.HP.STD ---
Documented by User: Pavithra Correa NP, SEARCH ENGINE MARKETING STRATEGIST-C 05/21/21 14:48 HPI - General HPI Narrative CANDACE SILVESTRE, is a 75 F who presents to the emergency room due to shortness of breath. Patient states she has been short of breath for the past 2 years and has been steadily worsening. She states her symptoms became significantly worse beginning last . She also reports significant lower extremity swelling. She states she is unable to walk even very short distance due to dyspnea. She denies cough, fever, chills. She was referred to [facility] pulmonary hypertension clinic due to severe pulmonary hypertension. She states she has an appointment June 13. She denies chest pain. She is on 2 L nasal cannula chronically. She states she has worn CPAP for the past 30 years however has not worn it for the past week due to difficulty with mask. She has a past medical history of hypertension, atrial fibrillation/flutter, severe pulmonary hypertension, diastolic dysfunction, chronic kidney disease, history of PE/DVT, type 2 diabetes mellitus, morbid obesity. 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 Deep vein thrombosis Diabetes type 2, controlled Diastolic dysfunction Epidermal cyst of vulva Essential (primary) hypertension History of pneumonia History of pulmonary embolism (2006) Hyperlipidemia Moderate right ventricular systolic dysfunction Morbid obesity Vicente's neuroma of left foot Non-ischemic cardiomyopathy Nonrheumatic mitral (valve) insufficiency Nonsustained ventricular tachycardia Obstructive sleep apnea Osteoarthritis Paroxysmal atrial fibrillation Patent foramen ovale Right ventricular dilation Seasonal allergies Secondary pulmonary arterial hypertension Trigger finger, left little finger Type 2 diabetes mellitus Home Medications allergen PINE IGE 1 unit MC DAILY 11/06/17 [History Last Taken 05/20/21] ibuprofen 200 mg tablet 1 tab PO DAILY PRN PRN 11/06/17 [History Last Taken 05/19/21] aspirin 81 mg tablet,delayed release 81 mg PO DAILY 01/21/20 [History Last Taken 05/20/21] metoprolol succinate 50 mg tablet,extended release 24 hr 50 mg PO BID #180 tab 09/15/20 [Rx Last Taken 05/20/21] furosemide 40 mg tablet 40 mg PO .COMPLEX #135 tab 10/26/20 [Rx Last Taken 05/20/21] spironolactone 50 mg tablet 50 mg PO DAILY #90 tab 12/01/20 [Rx Last Taken 05/20/21] losartan 50 mg tablet 50 mg PO DAILY #90 tab 12/11/20 [Rx Last Taken 05/20/21] ascorbic acid (vitamin C) 500 mg tablet 500 mg PO DAILY 03/15/21 [History Last Taken 05/20/21] cholecalciferol (vitamin D3) 25 mcg (1,000 unit) capsule 25 mcg PO DAILY 03/15/21 [History Last Taken 05/20/21] metformin 500 mg tablet 500 mg PO TID #270 tab 03/19/21 [Rx Last Taken 05/20/21] hydrocodone-acetaminophen 5-325mg 5mg-325mg 1 tab PO Q8H PRN 30 Days #90 tab 05/04/21 [Rx Last Taken 05/20/21] calcium citrate-vitamin D3 [Calcium Citrate + D] 1 tab PO DAILY 05/21/21 [History Last Taken 05/20/21] diphenhydramine HCl [Benadryl] 50 mg PO QHS 05/21/21 [History Last Taken 05/20/21] duloxetine 30 mg PO DAILY 05/21/21 [History Last Taken 05/20/21] ferrous sulfate 325 mg PO DAILY 05/21/21 [History Last Taken 05/20/21] magnesium 500 mg PO BID 05/21/21 [History Last Taken 05/20/21] multivitamin 1 tab PO DAILY 05/21/21 [History Last Taken 05/20/21] omeprazole 40 mg PO DAILY 05/21/21 [History Last Taken 05/20/21] Allergy/AdvReac Type Severity Reaction Status Date / Time erythromycin base Allergy Hives Verified 05/21/21 08:55 Sulfa (Sulfonamide AdvReac Hives Verified 05/21/21 08:55 Antibiotics) Family History Father Myocardial infarction Mother Heart disease Myocardial infarction Surgical History History of bilateral knee replacement History of History of cardioversion (09/23/12) History of carpal tunnel surgery of right wrist History of cholecystectomy History of gastric bypass History of left heart catheterization (10/2000) History of radiofrequency ablation procedure for cardiac arrhythmia (10/26/15) History of right and left heart catheterization (01/28/20) History of shoulder surgery Social History (Reviewed 05/21/21 @ 14:38 by Pavithra Correa SEARCH ENGINE MARKETING STRATEGIST, SEARCH ENGINE MARKETING STRATEGIST-C) Smoking Status: Former smoker how long ago did patient quit smokin alcohol intake: never substance use type: does not use what type of physical activity do you participate in: none ROS Constitutional Constitutional: Reports weakness; Denies change in weight, chills, fatigue or fever(s) Cardiovascular Cardiovascular: Reports edema; Denies chest pain, lightheadedness, palpitations or syncope Respiratory/Chest Respiratory/Chest: Reports shortness of breath at rest and shortness of breath with exertion; Denies cough, productive cough or wheezing Gastrointestinal Gastrointestinal: Denies abdominal pain, constipation, diarrhea, nausea or vomiting Genitourinary Genitourinary: Denies burning urination, difficulty urinating, dysuria, hematuria, urinary frequency, urinary incontinence or urinary urgency Musculoskeletal Musculoskeletal: Denies back pain, joint pain or muscle weakness Integumentary Integumentary: Denies erythema, lesions, rash or wounds Neurologic Neurologic: Denies abnormal speech, confusion, dizziness, focal weakness, numbness, paresthesias, seizure-like activity or syncope Psychiatric Psychiatric: Denies anxiety or depression Hematologic/Lymphatic Hematologic/Lymphatic: Denies anemia, easy bleeding or easy bruising Allergic/Immunologic Allergic/Immunologic: Denies hives or asthma Vital Signs Vital Signs Vital Signs: 05/21/21 08:51 05/21/21 11:15 05/21/21 13:44 Temperature 98.0 F Temperature Source Temporal Pulse Rate 64 61 68 Respiratory Rate 16 14 16 Blood Pressure 132/101 H 120/71 129/77 H Blood Pressure Mean 111 87 94 Pulse Ox 98 99 Oxygen Delivery Method Nasal Cannula Nasal Cannula Oxygen Flow Rate (L/min) 2 2 Weight Weight: 244 lb Body Mass Index (BMI) 39.4 Physical Exam Const alert, oriented x3 and no apparent distress Orientation / Consciousness: awake, oriented to person, oriented to place and oriented to time Nutritional Appearance: obese HEENT normocephalic and moist oral mucous membranes Eyes PERRL, EOMs intact bilaterally and conjunctivae normal Neck no lymphadenopathy Resp clear to auscultation bilaterally Auscultation: diminished lung sounds Cardio regular rate, regular rhythm and no murmurs Peripheral Pulses: pulses 2+ throughout GI normal to inspection, nondistended, normoactive bowel sounds, non-tender and non-distended Extremity normal to inspection General Extremity: edema bilateral lower extremity Details: severe Skin no rashes or lesions noted Skin Narrative: Right lower extremity large fluid blister, previously drained. Dressing intact. Lesions: no lesions Rashes: no rashes Trauma: no lacerations or abrasions Neuro CN's II-XII intact bilaterally, no focal motor deficits, no sensory deficits noted and deep tendon reflexes 2+ bilaterally Psych mental status grossly normal and affect normal Results Lab / Micro Data Result Diagrams: 05/21/21 09:55 05/21/21 11:18 Labs: Laboratory Results - last 24 hr 05/21/21 09:55: WBC 6.5, RBC 4.52, Hgb 12.4, Hct 41.5, MCV 91.8, MCH 27.4, MCHC 29.9 L, RDW Std Deviation 58.1 H, RDW Coeff of Mikie 18.2 H, Plt Count 238, MPV 9.3, Immature Gran % (Auto) 0.500, Neut % (Auto) 59.0, Lymph % (Auto) 27.0, [place] % (Auto) 9.3, Eos % (Auto) 3.4, Baso % (Auto) 0.8, Absolute Neuts (auto) 3.8, Absolute Lymphs (auto) 1.75, Nucleated RBC % 0.3 05/21/21 09:55: Sodium Cancelled, Potassium Cancelled, Chloride Cancelled, Carbon Dioxide Cancelled, Anion Gap Cancelled, BUN Cancelled, Creatinine Cancelled, Estim Creat Clear Calc Cancelled, Est GFR (MDRD) Af Amer Cancelled, Est GFR (MDRD) Non-Af Cancelled, BUN/Creatinine Ratio Cancelled, Glucose Cancelled, Calcium Cancelled, Total Bilirubin Cancelled, AST Cancelled, ALT Cancelled, Alkaline Phosphatase Cancelled, Troponin I High Sens Cancelled, Total Protein Cancelled, Albumin Cancelled, Globulin Cancelled, Albumin/Globulin Ratio Cancelled 05/21/21 09:55: Lactic Acid 2.3 H* 05/21/21 09:55: B-Natriuretic Peptide 1345.5 H 05/21/21 11:03: Sodium Cancelled, Potassium Cancelled, Chloride Cancelled, Carbon Dioxide Cancelled, Anion Gap Cancelled, BUN Cancelled, Creatinine Cancelled, Estim Creat Clear Calc Cancelled, Est GFR (MDRD) Af Amer Cancelled, Est GFR (MDRD) Non-Af Cancelled, BUN/Creatinine Ratio Cancelled, Glucose Cancelled, Calcium Cancelled, Total Bilirubin Cancelled, AST Cancelled, ALT Cancelled, Alkaline Phosphatase Cancelled, Troponin I High Sens Cancelled, Total Protein Cancelled, Albumin Cancelled, Globulin Cancelled, Albumin/Globulin Ratio Cancelled 05/21/21 11:18: Sodium 136, Potassium 5.1, Chloride 101, Carbon Dioxide 26.0, Anion Gap 9, BUN 56 H, Creatinine 2.02 H, Estim Creat Clear Calc 22.87, Est GFR (MDRD) Af Amer 31 L, Est GFR (MDRD) Non-Af 26 L, BUN/Creatinine Ratio 27.7 H, Glucose 119 H, Calcium 9.6, Total Bilirubin 1.00, AST 26, ALT 32, Alkaline Phosphatase 98, Troponin I High Sens 21, Total Protein 7.8, Albumin 3.9, Globulin 3.9, Albumin/Globulin Ratio 1.0 Micro: Microbiology 05/21/21 09:44 Nasal Secretion SARS-CoV-2 Antigen (Rapid) - Final Radiology Impression Chest X-Ray 05/21/21 10:02 IMPRESSION: Moderate cardiomegaly. Mild degree of CHF with right basilar atelectasis and/or early infiltrate. Electronically Signed: Michael Thomason MD at 10:23 EDT , Service support , Assessment & Plan Assessment/Plan (1) Diastolic dysfunction: PLAN: 1. Acute on chronic heart failure with preserved ejection fraction/diastolic dysfunction, complicated by severe pulmonary hypertension-echocardiogram 04/05/2021 demonstrated an EF of 50%, RVSP 87 mmHg. Chest x-ray consistent with CHF. BNP greater than 1300. IV Lasix. Strict I&O. Daily weight. [place] wraps bilateral lower extremities. 2. Severe pulmonary hypertension with chronic hypoxic respiratory failure-continue PAP regimen. Continue supplemental oxygen to maintain O2 above 90%. Referred to [facility] pulmonary hypertension clinic with appointment 06/13/2021. 3. Acute kidney injury on chronic kidney disease stage IIIb- IV Lasix, trend BMP. 4. Hypertension-stable, continue losartan, metoprolol, spironolactone. 5. Atrial fibrillation/flutter-on metoprolol, not on anticoagulation. 6. History of PE/DVT-does not appear to be on oral anticoagulation. 7. Type 2 diabetes mellitus-hold metformin. Accu-Cheks with sliding scale insulin. 8. GERD-continue PPI. 9. Morbid obesity-encouraged diet and lifestyle modifications. DVT prophylaxis-Heparin subcu This patient was seen by MICHELL Salomon under the supervision of Dr. Lehman. Documented by User: Dr. 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 Deep vein thrombosis Diabetes type 2, controlled Diastolic dysfunction Epidermal cyst of vulva Essential (primary) hypertension History of pneumonia History of pulmonary embolism (2006) Hyperlipidemia Moderate right ventricular systolic dysfunction Morbid obesity Vicente's neuroma of left foot Non-ischemic cardiomyopathy Nonrheumatic mitral (valve) insufficiency Nonsustained ventricular tachycardia Obstructive sleep apnea Osteoarthritis Paroxysmal atrial fibrillation Patent foramen ovale Right ventricular dilation Seasonal allergies Secondary pulmonary arterial hypertension Trigger finger, left little finger Type 2 diabetes mellitus Home Medications allergen PINE IGE 1 unit MC DAILY 11/06/17 [History Last Taken 05/20/21] ibuprofen 200 mg tablet 1 tab PO DAILY PRN PRN 11/06/17 [History Last Taken 05/19/21] aspirin 81 mg tablet,delayed release 81 mg PO DAILY 01/21/20 [History Last Taken 05/20/21] metoprolol succinate 50 mg tablet,extended release 24 hr 50 mg PO BID #180 tab 09/15/20 [Rx Last Taken 05/20/21] furosemide 40 mg tablet 40 mg PO .COMPLEX #135 tab 10/26/20 [Rx Last Taken 05/20/21] spironolactone 50 mg tablet 50 mg PO DAILY #90 tab 12/01/20 [Rx Last Taken 05/20/21] losartan 50 mg tablet 50 mg PO DAILY #90 tab 12/11/20 [Rx Last Taken 05/20/21] ascorbic acid (vitamin C) 500 mg tablet 500 mg PO DAILY 03/15/21 [History Last Taken 05/20/21] cholecalciferol (vitamin D3) 25 mcg (1,000 unit) capsule 25 mcg PO DAILY 03/15/21 [History Last Taken 05/20/21] metformin 500 mg tablet 500 mg PO TID #270 tab 03/19/21 [Rx Last Taken 05/20/21] hydrocodone-acetaminophen 5-325mg 5mg-325mg 1 tab PO Q8H PRN 30 Days #90 tab 05/04/21 [Rx Last Taken 05/20/21] calcium citrate-vitamin D3 [Calcium Citrate + D] 1 tab PO DAILY 05/21/21 [History Last Taken 05/20/21] diphenhydramine HCl [Benadryl] 50 mg PO QHS 05/21/21 [History Last Taken 05/20/21] duloxetine 30 mg PO DAILY 05/21/21 [History Last Taken 05/20/21] ferrous sulfate 325 mg PO DAILY 05/21/21 [History Last Taken 05/20/21] magnesium 500 mg PO BID 05/21/21 [History Last Taken 05/20/21] multivitamin 1 tab PO DAILY 05/21/21 [History Last Taken 05/20/21] omeprazole 40 mg PO DAILY 05/21/21 [History Last Taken 05/20/21] Allergy/AdvReac Type Severity Reaction Status Date / Time erythromycin base Allergy Hives Verified 05/21/21 08:55 Sulfa (Sulfonamide AdvReac Hives Verified 05/21/21 08:55 Antibiotics) Family History (Reviewed 05/21/21 @ 14:37 by Pavithra Correa SEARCH ENGINE MARKETING STRATEGIST, SEARCH ENGINE MARKETING STRATEGIST-C) Father Myocardial infarction Mother Heart disease Myocardial infarction Surgical History History of bilateral knee replacement History of History of cardioversion (09/23/12) History of carpal tunnel surgery of right wrist History of cholecystectomy History of gastric bypass History of left heart catheterization (10/2000) History of radiofrequency ablation procedure for cardiac arrhythmia (10/26/15) History of right and left heart catheterization (01/28/20) History of shoulder surgery Social History (Reviewed 05/21/21 @ 14:38 by Pavithra Correa SEARCH ENGINE MARKETING STRATEGIST, SEARCH ENGINE MARKETING STRATEGIST-C) Smoking Status: Former smoker how long ago did patient quit smokin alcohol intake: never substance use type: does not use what type of physical activity do you participate in: none Results Lab / Micro Data Result Diagrams: 05/21/21 09:55 05/21/21 11:18 Charges/Coding Addendum Addendum: This patient was seen in conjunction with Pavithra Correa. I have independently interviewed and examined the patient and reviewed pertinent historical, laboratory, and other data. I have reviewed her note and concur with her documentation 75-year-old female with past medical history of severe pulmonary hypertension, atrial fibrillation/flutter status post status post radiofrequency ablation in 2014, pulmonary vein isolation 2015. Patient had a cardiac cath done in January 2020 which showed a shunt within the left ventricle, right ventricle and atrium. Her right ventricular systolic pressure was said to be 90. There was a large calcified left circumflex artery which was ectatic coming out of the left main artery and appeared to make a connection between the junction of the right atrium and left atrium suggestive of a coronary artery to RV/RA chamber shunt. Cardiology had discussed with [facility] and she was not deemed to be a good surgical candidate. Patient has been referred to the [facility] and she has an appointment on 13 June. She comes in with progressive shortness of breath. She was started on oxygen earlier on in the month. She admits to orthopnea, PND, dyspnea on exertion with a minimal effort. He denied any fever or chills. Her vitals were stable. Chest x-ray shows moderate cardiomegaly with acute on chronic systolic CHF Her BMP shows creatinine of 2.02 up from 1.5 BNPep is 1345.[address] Harrington, her primary special agent secret service, who recommended transfer to the [facility] for earlier evaluation Physical Exam: Gen: Morbidly obese, comfortable, not pale, not jaundiced CVS:HS I +II, regular, no murmurs RESP: Diminished at lung bases, few crackles at the bases GI: BS present and normal, soft, nontender, no palpable organs EXT: Bilateral leg edema +4, dressing over the right lower leg from recent venous blister ASSESSMENT: 1. Progressive dyspnea secondary to worsening pulmonary hypertension/severely dilated right ventricle/severe right ventricular systolic dysfunction 2. Acute exacerbation of heart failure with preserved EF, previous EF of 50% 3. Right leg blister 4. Hypertension 6. Morbid obesity 7. Paroxysmal atrial fibrillation 8. Type II DM 9. Hyperlipidemia I discussed and explained in details the various types of CODE STATUS-full code, DNR CCA, DNR CC. Patient chose DNR CCA. Her is a power of civil litigation attorney for health. Time spent discussing CODE STATUS 16 minutes Plan: Transfer to [facility]-discussed with ED physician Visit Charges Inpatient E&M: 44556 Init Hosp L3 Procedures Hospitalists Procedures: 82176 Advncd Care Plan 30 Min
[2021-05-21 14:02] LABS: Reflex Lactate? Y
--- NOTE | 2021-05-21 15:10 | NURSING ---
FAXED FACESHEET TO [facility]
--- NOTE | 2021-05-21 15:31 | NURSING ---
ACCEPTED AT A [facility]
[2021-05-21 16:10] LABS: Lactic Acid 1.9 mmol/L (0.4-1.9)
--- NOTE | 2021-05-21 17:31 | NURSING ---
[address] [place] [address]
--- NOTE | 2021-05-21 17:41 | NURSING ---
CALLED [facility]. PATIENT IS GOING TO [facility] [place]. TALKED TO [place]. COULDN'T SAY WHEN PATIENT WOULD HAVE A BED
[2021-05-21 19:02] LABS: Troponin-I HS 21 pg/mL (3.0-54.0)
[2021-05-21] MEDS: Ipratropium/Albuterol Sulfate 3 ML AMPUL.NEB INHALATION (19:35)
--- NOTE | 2021-05-21 19:50 | CPS ---
Own CPAP setup at bedside with 2L of oxygen bled in. CPAP 11 for home settings on patient's machine.
[2021-05-21 21:45] LABS: Troponin-I HS 18 pg/mL (3.0-54.0)
[2021-05-21] MEDS: HYDROcodone Bitartrate/Apap 5/325 Tablet PO (21:54)
[2021-05-21] MEDS: DULoxetine Hcl 30 MG Capsule PO (21:54)
[2021-05-21] MEDS: DiphenhydrAMINE 25 MG Capsule 50 MG PO (21:54)
[2021-05-21] MEDS: Heparin Injection (Vial) 5,000 UNIT/ML VIAL 5000 UNIT SC (21:54)
[2021-05-21] MEDS: Metoprolol(XL)Succ 50 MG Tablet PO (21:55)
[2021-05-22] VITALS (14 sets, daily range): BP systolic 112–121; BP diastolic 59–71; PULSE 63–79; RESP 14–20; TEMP 35.7–36.7; O2SAT 95–99
[2021-05-22 06:56] LABS: Absolute Lymphocyte Count 2.01 X10^3/uL (0.83-4.51); Absolute Neutrophil Count 3.4 X10^3/uL (2.0-7.7); Basophil# 0.08 X10^3/uL; Basophil% 1.2 % (0-1); Eosinophil# 0.31 X10^3/uL; Eosinophils% 4.7 % (0-5); Hematocrit 39.3 % (37-47); Hemoglobin 11.8 g/dL (12.0-15.0); Lymphocyte # 2.01 X10^3/ul (0.83-4.51); Lymphocyte % 30.3 % (19-41); Mean Corpuscular Hgb 27.5 pg (27.0-32.0); Mean Corpuscular Volume 91.6 fL (81-99); Mean Platelet Vol. 8.8 fl (6.2-12.0); Monocyte# 0.79 X10^3/uL; Monocyte% 11.9 % (0-10); NRBC Flagged by Analyzer 0.3 % (0-5); Neutrophil # 3.42 X10^3/uL (2.7-7.7); Neutrophil % 51.4 % (47-70); Platelet Count 228 K/mm3 (150-450); RBC Distribution Width SD 57.6 fl (35.1-43.9); Red Blood Count 4.29 M/mm3 (4.2-5.4); White Blood Count 6.6 K/mm3 (4.4-11.0)
[2021-05-22] MEDS: Ipratropium/Albuterol Sulfate 3 ML AMPUL.NEB INHALATION ×4 (06:58→19:08)
[2021-05-22 07:30] LABS: AST(SGOT) 24 U/L (15-37); Alanine Aminotransfer ALT/SGPT 26 U/L (13-56); Albumin, Serum 3.3 g/dL (3.2-5.0); Alkaline Phosphatase 82 U/L (45-117); Anion Gap 6 (5-15); BUN 55 mg/dL (7-18); BUN/Creat Ratio 28.9 RATIO (10-20); Calcium,Total 9.1 mg/dL (8.5-10.1); Chloride 102 mmol/L (98-107); EST Glomerular Filtration Rate 27 mL/min (>60); Est Glom Filt Rate - Afr Amer 33 mL/min (>60); Estimated Creatinine Clearance 24.32 ml/min; Globulin 3.3 g/dL (2.2-4.2); Glucose 127 mg/dL (74-106); Protein, Total 6.6 g/dL (6.4-8.2); Sodium Level 138 mmol/L (136-145)
[2021-05-22] MEDS: Furosemide 40 MG/4 ML Vial IV ×3 (08:29→20:42)
[2021-05-22] MEDS: 0.9% Saline Lock 10 ML Syringe IV ×3 (08:30→20:52)
[2021-05-22] MEDS: DULoxetine Hcl 30 MG Capsule PO (08:31)
[2021-05-22] MEDS: Aspirin E.C. 81 MG Tablet PO (08:31)
[2021-05-22] MEDS: Pantoprazole Sodium 40 MG Tablet PO (08:31)
[2021-05-22] MEDS: Metoprolol(XL)Succ 50 MG Tablet PO ×2 (08:31→20:43)
[2021-05-22] MEDS: Ascorbic Acid 500 MG Tablet PO (08:32)
[2021-05-22] MEDS: Heparin Injection (Vial) 5,000 UNIT/ML VIAL 5000 UNIT SC ×2 (08:33→20:44)
[2021-05-22 09:14] LABS: Troponin-I HS 20 pg/mL (3.0-54.0)
--- NOTE | 2021-05-22 10:18 | WOUNDNOTE ---
wound photo: right lower leg
[2021-05-22] MEDS: Ferrous Sulfate 325 MG Tablet PO (12:53)
[2021-05-22] MEDS: HYDROcodone Bitartrate/Apap 5/325 Tablet PO ×2 (12:53→21:13)
--- NOTE | 2021-05-22 13:11 | PN.HOSP_ITS ---
Documented by User: Pavithra Correa NP, MANAGER ENVIRONMENTAL HEALTH AND SAFETY-C 05/22/21 13:21 Subjective Subjective Patient seen and examined. Reports her breathing has not improved however has not worsened. Reports improvement in lower extremity swelling. She denies new symptoms or complaints. Awaiting bed at [facility]. Objective Data Objective Data Vital Signs: Vital Signs Temp Pulse Resp BP Pulse Ox 97.7 F L 79 20 H 120/59 L 95 05/22/21 08:14 05/22/21 11:36 05/22/21 11:36 05/22/21 08:14 05/22/21 08:14 Oxygen Flow Rate (L/min) 2 Oxygen Delivery Method Room Air Weight: 256 lb 13.416 oz Body Mass Index (BMI) 41.3 Intake & Output: Intake and Output for Last 24 Hours 05/20/21 05/21/21 05/22/21 23:59 23:59 23:59 Intake Total 400 / 400 350 / 350 Output Total 750 / 750 300 / 300 Balance -350 / -350 50 / 50 Lab / Micro Data Result Diagrams: 05/22/21 05:20 05/22/21 05:20 Labs: Laboratory Results - last 24 hr 05/21/21 09:55: B-Natriuretic Peptide 1345.5 H 05/21/21 14:02: Lactic Acid 1.9 05/21/21 14:15: Troponin I High Sens Cancelled 05/21/21 18:32: Troponin I High Sens 05/21/21 20:58: Troponin I High Sens 18 05/22/21 01:20: Troponin I High Sens 20 05/22/21 05:20: WBC 6.6, RBC 4.29, Hgb 11.8 L, Hct 39.3, MCV 91.6, MCH 27.5, MCHC 30.0 L, RDW Std Deviation 57.6 H, RDW Coeff of Mikie 18.0 H, Plt Count 228, MPV 8.8, Immature Gran % (Auto) 0.500, Neut % (Auto) 51.4, Lymph % (Auto) 30.3, [place] % (Auto) 11.9 H, Eos % (Auto) 4.7, Baso % (Auto) 1.2 H, Absolute Neuts (auto) 3.4, Absolute Lymphs (auto) 2.01, Nucleated RBC % 0.3 05/22/21 05:20: Sodium 138, Potassium 5.0, Chloride 102, Carbon Dioxide 30.0, Anion Gap 6, BUN 55 H, Creatinine 1.90 H, Estim Creat Clear Calc 24.32, Est GFR (MDRD) Af Amer 33 L, Est GFR (MDRD) Non-Af 27 L, BUN/Creatinine Ratio 28.9 H, Glucose 127 H, Calcium 9.1, Total Bilirubin 0.80, AST 24, ALT 26, Alkaline Phosphatase 82, Total Protein 6.6, Albumin 3.3, Globulin 3.3, Albumin/Globulin Ratio 1.0 Micro: Microbiology 05/21/21 09:44 Nasal Secretion SARS-CoV-2 Antigen (Rapid) - Final Physical Exam Const alert, oriented x3 and no apparent distress Orientation / Consciousness: awake, oriented to person, oriented to place and oriented to time HEENT normocephalic and moist oral mucous membranes Eyes PERRL, EOMs intact bilaterally and conjunctivae normal Neck no lymphadenopathy Resp clear to auscultation bilaterally Auscultation: diminished lung sounds Cardio regular rate, regular rhythm and no murmurs Peripheral Pulses: pulses 2+ throughout GI normal to inspection, nondistended, normoactive bowel sounds, non-tender and non-distended Extremity normal to inspection General Extremity: edema bilateral lower extremity Skin no rashes or lesions noted Lesions: no lesions Rashes: no rashes Trauma: no lacerations or abrasions Neuro CN's II-XII intact bilaterally, no focal motor deficits, no sensory deficits noted and deep tendon reflexes 2+ bilaterally Psych mental status grossly normal and affect normal Assessment & Plan Assessment/Plan (1) Diastolic dysfunction: PLAN: 1. Acute on chronic heart failure with preserved ejection fraction/diastolic dysfunction, complicated by severe pulmonary hypertension- echocardiogram 04/05/2021 demonstrated an EF of 50%, RVSP 87 mmHg. Chest x-ray consistent with CHF. BNP greater than 1300. IV Lasix. Strict I&O. Daily weight. Easton wraps bilateral lower extremities. Awaiting bed at [facility] for further evaluation regarding severely dilated right ventricle/severe right ventricular systolic dysfunction. 2. Severe pulmonary hypertension with chronic hypoxic respiratory failure- continue PAP regimen. Continue supplemental oxygen to maintain O2 above 90%. Previous referral to [facility] pulmonary hypertension clinic with appointment 06/13/2021. Plan for transfer for more immediate evaluation as noted above. 3. Acute kidney injury on chronic kidney disease stage IIIb- IV Lasix, trend BMP. Creatinine trending down. 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 Previously reviewed by [facility] and thought not to be a good candidate for surgery. Referred to [facility] for second opinion. 5. Hypertension-stable, continue metoprolol. Losartan, spironolactone held. 6. Atrial fibrillation/flutter-on metoprolol, not on anticoagulation. 7. History of PE/DVT-does not appear to be on oral anticoagulation. 8. Type 2 diabetes mellitus-hold metformin. Accu-Cheks with sliding scale insulin. 9. GERD-continue PPI. 10. Morbid obesity-encouraged diet and lifestyle modifications. DVT prophylaxis-Heparin subcu This patient was seen by LAUREN SalomonC under the supervision of Dr. Sommers. Documented by User: Dr. Janett Sommers DO 05/22/21 14:28 Subjective Subjective This patient was seen in conjunction with Pavithra Correa NP. The following represents my independent history and physical examination. Please see below for any addendum the above. Patient states that she has been having significant increases in her weight and lower extremity swelling over the last several months. She states that her paul lity of life has significantly decreased and she can hardly do anything functionally. She states she enjoys life tremendously and would like to address this if able. She is pleased that she is awaiting transfer for further surgical evaluation. She states she does feel better since admission with her diuresis. Objective Data Lab / Micro Data Result Diagrams: 05/22/21 05:20 05/22/21 05:20 Physical Exam Const alert, oriented x3 and no apparent distress Constitutional Narrative: Morbidly obese elderly white female sitting up in chair at the bedside, appears comfortable at this time, currently on supplemental oxygen, nontoxic Exam Limitations: no limitations Nutritional Appearance: morbidly obese HEENT head/scalp atraumatic and moist oral mucous membranes HEENT Narrative: Edentulous, no thrush Head and Scalp: normocephalic Resp normal respiratory effort, no retractions and no use of accessory muscles Resp Narrative: Diminished at bases bilaterally but clear, no signs of respiratory distress Auscultation: Negative for crackles, rales, rhonchi or wheezes Cardio regular rate, regular rhythm, S1 normal heart sound, S2 normal heart sound, no murmurs, no rub, no gallops, no clicks and no JVD GI normal to inspection, nondistended, normoactive bowel sounds, soft to palpation, non-tender and non-distended Extremity Extremity Narrative: 2+ bilateral lower extremity pitting edema, no cyanosis or clubbing, cap refill 2+, pedal pulses are difficult to feel secondary to edema Skin no wounds, skin turgor normal, no jaundice, no petechiae and no mottling Skin Narrative: Skin is pale, right lower extremity blister Neuro oriented x3, CN's II-XII intact bilaterally, moves all extremities and no focal motor deficits Neuro Narrative: Generalized weakness Sensorium / Orientation: awake, alert, oriented to person, oriented to place and oriented to time Speech: speech normal Psych affect normal Psych Narrative: Extremely pleasant Assessment & Plan Assessment/Plan (1) Acute right-sided heart failure: (2) Coronary artery anomaly: (3) Right ventricular dilation: PLAN: Assessment: Acute on chronic right-sided heart failure Diastolic dysfunction Severe pulmonary artery hypertension Chronic hypoxic respiratory failure Obstructive sleep apnea LUCIANO CKD stage IIIb 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 Harrington by [facility] and patient was determined to not be a good surgical candidate -Referral to [facility] for second opinion was made as the patient is having significant issues with quality of life based on her current status -Patient has been accepted for transfer to [facility] and we are currently awaiting a bed -We will function is improved with diuresis and I suspect her acute kidney injury is related to cardiorenal syndrome -Continue diuresis but increase to 40 mg 3 times daily IV push -To new fluid restriction and daily weights -Continue bilateral lower extremity compression wraps -Supplemental O2 as needed able -To new nocturnal CPAP Charges/Coding Visit Charges Inpatient E&M: 42889 Subs Hosp L2
[2021-05-22] MEDS: DiphenhydrAMINE 25 MG Capsule 50 MG PO (20:43)
[2021-05-22] MEDS: Nystatin Powder 15gm Bottle 1 APPLIC TOPICAL (20:43)
[2021-05-23] VITALS (12 sets, daily range): BP systolic 101–123; BP diastolic 62–83; PULSE 63–76; RESP 14–20; TEMP 36.1–36.8; O2SAT 94–966
[2021-05-23 05:39] LABS: Absolute Neutrophil Count 3.4 X10^3/uL (2.0-7.7); Basophil# 0.08 X10^3/uL; Basophil% 1.2 % (0-1); Eosinophil# 0.32 X10^3/uL; Eosinophils% 4.9 % (0-5); Hematocrit 41.1 % (37-47); Hemoglobin 11.9 g/dL (12.0-15.0); Lymphocyte % 30.9 % (19-41); Mean Corpuscular Hgb 27.3 pg (27.0-32.0); Mean Corpuscular Volume 94.3 fL (81-99); Mean Platelet Vol. 9.3 fl (6.2-12.0); Monocyte% 9.3 % (0-10); NRBC Flagged by Analyzer 0.5 % (0-5); Neutrophil # 3.44 X10^3/uL (2.7-7.7); Neutrophil % 53.2 % (47-70); Platelet Count 210 K/mm3 (150-450); RBC Distribution Width CV 18.4 % (11.6-14.6); RBC Distribution Width SD 61.3 fl (35.1-43.9); Red Blood Count 4.36 M/mm3 (4.2-5.4); White Blood Count 6.5 K/mm3 (4.4-11.0)
[2021-05-23 05:57] LABS: Anion Gap 12 (5-15); BUN 54 mg/dL (7-18); BUN/Creat Ratio 31.8 RATIO (10-20); Calcium,Total 8.5 mg/dL (8.5-10.1); Chloride 102 mmol/L (98-107); EST Glomerular Filtration Rate 31 mL/min (>60); Est Glom Filt Rate - Afr Amer 38 mL/min (>60); Estimated Creatinine Clearance 27.18 ml/min; Glucose 133 mg/dL (74-106); Potassium 4.3 mmol/L (3.5-5.1); Sodium Level 136 mmol/L (136-145)
[2021-05-23] MEDS: 0.9% Saline Lock 10 ML Syringe IV ×3 (06:00→22:01)
[2021-05-23] MEDS: Furosemide 40 MG/4 ML Vial IV ×3 (06:00→22:01)
[2021-05-23] MEDS: HYDROcodone Bitartrate/Apap 5/325 Tablet PO ×2 (06:03→22:11)
[2021-05-23] MEDS: Ascorbic Acid 500 MG Tablet PO (09:40)
[2021-05-23] MEDS: DULoxetine Hcl 30 MG Capsule PO (09:40)
[2021-05-23] MEDS: Aspirin E.C. 81 MG Tablet PO (09:40)
[2021-05-23] MEDS: Pantoprazole Sodium 40 MG Tablet PO (09:40)
[2021-05-23] MEDS: Nystatin Powder 15gm Bottle 1 APPLIC TOPICAL ×2 (09:41→22:01)
[2021-05-23] MEDS: Heparin Injection (Vial) 5,000 UNIT/ML VIAL 5000 UNIT SC ×2 (09:41→22:01)
--- NOTE | 2021-05-23 10:55 | PCM.PN.HOSP ---
Documented by User: Pavithra Correa NP, BLOW MOLDING MACHINE OPERATOR-C 05/23/21 11:01 Subjective Subjective Patient seen and examined. Reports significant improvement in breathing. States she feels hopeful. Awaiting bed at [facility]. Patient does report constipation, bowel regimen initiated. Objective Data Objective Data Vital Signs: Vital Signs Temp Pulse Resp BP Pulse Ox 98.2 F 70 18 101/62 98 05/23/21 09:38 05/23/21 09:38 05/23/21 09:38 05/23/21 09:38 05/23/21 09:38 Oxygen Flow Rate (L/min) 2 Oxygen Delivery Method Nasal Cannula Weight: 254 lb 3.088 oz Body Mass Index (BMI) 41.3 Intake & Output: Intake and Output for Last 24 Hours 05/21/21 05/22/21 05/23/21 23:59 23:59 23:59 Intake Total 400 / 400 350 / 590 290 / 290 Output Total 750 / 750 300 / 700 700 / 700 Balance -350 / -350 50 / -110 -410 / -410 Lab / Micro Data Result Diagrams: 05/23/21 05:20 05/23/21 05:20 Labs: Laboratory Results - last 24 hr 05/23/21 05:20: Sodium 136, Potassium 4.3, Chloride 102, Carbon Dioxide 22.0, Anion Gap 12, BUN 54 H, Creatinine 1.70 H, Estim Creat Clear Calc 27.18, Est GFR (MDRD) Af Amer 38 L, Est GFR (MDRD) Non-Af 31 L, BUN/Creatinine Ratio 31.8 H, Glucose 133 H, Calcium 8.5 05/23/21 05:20: WBC 6.5, RBC 4.36, Hgb 11.9 L, Hct 41.1, MCV 94.3, MCH 27.3, MCHC 29.0 L, RDW Std Deviation 61.3 H, RDW Coeff of Mikie 18.4 H, Plt Count 210, MPV 9.3, Immature Gran % (Auto) 0.500, Neut % (Auto) 53.2, Lymph % (Auto) 30.9, Morton % (Auto) 9.3, Eos % (Auto) 4.9, Baso % (Auto) 1.2 H, Absolute Neuts (auto) 3.4, Absolute Lymphs (auto) 2.00, Nucleated RBC % 0.5 Micro: Microbiology 05/21/21 09:44 Nasal Secretion SARS-CoV-2 Antigen (Rapid) - Final Physical Exam Const alert, oriented x3 and no apparent distress Orientation / Consciousness: awake, oriented to person, oriented to place and oriented to time HEENT normocephalic and moist oral mucous membranes Eyes PERRL, EOMs intact bilaterally and conjunctivae normal Neck no lymphadenopathy Resp clear to auscultation bilaterally Auscultation: diminished lung sounds Cardio regular rate, regular rhythm and no murmurs Peripheral Pulses: pulses 2+ throughout GI normal to inspection, nondistended, normoactive bowel sounds, non-tender and non-distended Extremity normal to inspection General Extremity: edema bilateral (East[place] wraps in place) lower extremity Skin no rashes or lesions noted Lesions: no lesions Rashes: no rashes Trauma: no lacerations or abrasions Neuro CN's II-XII intact bilaterally, no focal motor deficits, no sensory deficits noted and deep tendon reflexes 2+ bilaterally Psych mental status grossly normal and affect normal Assessment & Plan Assessment/Plan (1) Acute right-sided heart failure: PLAN: 1. Acute on chronic heart failure with preserved ejection fraction/diastolic dysfunction, complicated by severe pulmonary hypertension-echocardiogram 04/05/2021 demonstrated an EF of 50%, RVSP 87 mmHg. Chest x-ray consistent with CHF. BNP greater than 1300. IV Lasix. Strict I&O. Daily weight. Easton wraps bilateral lower extremities. Awaiting bed at [facility] for further evaluation regarding severely dilated right ventricle/severe right ventricular systolic dysfunction. 2. Severe pulmonary hypertension with chronic hypoxic respiratory failure-continue PAP regimen. Continue supplemental oxygen to maintain O2 above 90%. Previous referral to [facility] pulmonary hypertension clinic with appointment 06/13/2021. Plan for transfer for more immediate evaluation as noted above. 3. Acute kidney injury on chronic kidney disease stage IIIb- IV Lasix, trend BMP. Creatinine trending down. 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 Previously reviewed by [facility] and thought not to be a good candidate for surgery. Referred to [facility] for second opinion. 5. Hypertension-stable, continue metoprolol. Losartan, spironolactone held. 6. Atrial fibrillation/flutter-on metoprolol, not on anticoagulation. 7. History of PE/DVT-does not appear to be on oral anticoagulation. 8. Type 2 diabetes mellitus-hold metformin. Accu-Cheks with sliding scale insulin. 9. GERD-continue PPI. 10. Morbid obesity-encouraged diet and lifestyle modifications. 11. Constipation-initiated on bowel regimen. DVT prophylaxis-Heparin subcu Discharge planning: Awaiting bed at [facility]. This patient was seen by MICHELL Salomon under the supervision of Dr. Sommers. Documented by User: Dr. Janett Sommers DO 05/23/21 12:31 Subjective Subjective This patient was seen in conjunction with Pavithra Correa NP. The following represents my independent history and physical examination. Please see below for addendum the above. Patient states she is feeling very well. She states she is having much less exertional dyspnea but is still requiring some oxygen. She also reports that her swelling is much improved. Her weight is down a little over a kilogram since admission. She states she is pleased that somebody is finally listening to her. Objective Data Lab / Micro Data Result Diagrams: 05/23/21 05:20 05/23/21 05:20 Physical Exam Const alert, oriented x3 and no apparent distress Constitutional Narrative: Morbidly obese elderly white female sitting up in chair at the bedside, appears comfortable at this time, currently on supplemental oxygen, nontoxic, wound nurse is at the bedside Orientation / Consciousness: awake, oriented to person, oriented to place and oriented to time Exam Limitations: no limitations Nutritional Appearance: morbidly obese HEENT normocephalic, head/scalp atraumatic and moist oral mucous membranes Head and Scalp: normocephalic Resp normal respiratory effort, no retractions, no use of accessory muscles and clear to auscultation bilaterally Resp Narrative: Diminished at bases bilaterally but clear, no signs of respiratory distress Auscultation: diminished lung sounds; Negative for crackles, rales, rhonchi or wheezes Cardio regular rate, regular rhythm, S1 normal heart sound, S2 normal heart sound, no murmurs, no rub, no gallops, no clicks and no JVD Peripheral Pulses: pulses 2+ throughout GI normal to inspection, nondistended, normoactive bowel sounds, soft to palpation, non-tender and non-distended Extremity normal to inspection Extremity Narrative: 1+ bilateral lower extremity pitting edema, no cyanosis or clubbing, cap refill 2+, pedal pulses are difficult to feel secondary to edema, Easton bandages are in place General Extremity: edema bilateral ([place] wraps in place) lower extremity Details: severe Peripheral Pulses: Yes pulses 2+ throughout Skin Lesions: no lesions Rashes: no rashes Trauma: no lacerations or abrasions Neuro oriented x3, moves all extremities and deep tendon reflexes 2+ bilaterally Sensorium / Orientation: awake and alert Speech: speech normal Psych mental status grossly normal Assessment & Plan Assessment/Plan (1) Acute right-sided heart failure: (2) CKD (chronic kidney disease) stage 3, GFR 30-59 ml/min: (3) LUCIANO (acute kidney injury): PLAN: Assessment: Acute on chronic right-sided heart failure Diastolic dysfunction Severe pulmonary artery hypertension Chronic hypoxic respiratory failure Obstructive sleep apnea LUCIANO-resolving CKD stage IIIb 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 Harrington by [facility] and patient was determined to not be a good surgical candidate -Referral to [facility] for second opinion was made as the patient is having significant issues with quality of life based on her current status -Patient has been accepted for transfer to [facility] and we are currently still awaiting a bed -Renal function is improved despite continued diuresis and I suspect her acute kidney injury is related to cardiorenal syndrome -Baseline serum creatinine appears to be 1.4-1.6 -Continue diuresis 40 mg 3 times daily IV push and watch renal function slowly -Continue fluid restriction and daily weights -Weight is down approximately 1 kg and clinically patient is much improved -Continue bilateral lower extremity compression wraps -Supplemental O2 as needed able -Continue nocturnal CPAP Charges/Coding Visit Charges Inpatient E&M: 00665 Subs Hosp L2
[2021-05-23] MEDS: Docusate Sodium 100 MG Capsule 200 MG PO ×2 (11:11→22:01)
[2021-05-23] MEDS: Polyethylene Glycol 3350 17 GM PACKET PO (11:11)
[2021-05-23] MEDS: Insulin Lispro 100 UNIT/ML INSULN.PEN SC (11:14)
[2021-05-23] MEDS: Ferrous Sulfate 325 MG Tablet PO (11:15)
[2021-05-23 11:41] LABS: Bedside Glucose 214 mg/dL (70-110)
[2021-05-23] MEDS: Acetaminophen 325 MG Tablet 650 MG PO (12:52)
--- NOTE | 2021-05-23 13:25 | CASEMGMT ---
SANG LA assessment: Face to Face with patient for initial transition planning/care coordination assessment. SANG LA introduced self and role at [facility], pt voices understanding and consents to assessment. Pt is sitting up in chair in no distress on 2L nc. Pt is A/Ox4 and answers all questions appropriately. Care providers, pharmacy, and demographics verified. Presentation: Increased SOB since -also large blister to leg Admitting dx: Acute CHF PCP: Taye Specialists: Len, cardio; [facility]-scheduled to see in May Preferred Pharmacy: [facility] Living Will/HPOA: Pt states has LW/HPOA and is aware that they are not on file at [facility]. Pt states her , Kev Antoine, is HPOA. LNOK: Kev Antoine, ; Rob Antoine, son Living Arrangements: Pt states lives with in 1 story home and states normally is able to care for self but states has been having difficulty for the last month or so. Pt c/o SOB with any exertion so has been sitting a lot and now c/o weakness. Pt states was able to ambulate to bathroom today without distress. Transportation: Pt states normally drives self and states no transportation concerns. DME/HHC: Pt states has a rollator, cpap from [facility], and 2L nc home oxygen thru [facility] [place]. Pt is aware that [facility] is no longer in business and has been in contact with [facility] in the past. Pt states has been on cpap for 30 years and is only on her 2nd cpap. Pt is aware that [facility] [place] can provide cpap for future reference. Pt states shower is not easy for her to use and shower chair will not fit in there. Pt states her plans to renovate. Pt states no hx of HHC or SNF. Pt states no concerns with going home at time of discharge but plan is to transfer pt to [facility] to facilitate her seeing [facility] dr d/t significant decline in daily function. Pt is retired. Pt states quit smoking 40 years ago and very rarely drinks ETOH. Pt states no further concerns/needs. CM to follow for any further discharge planning/needs. Advised pt to ask for CM if any further questions/concerns/needs arise, voices understanding. Pt Goal: Home Plan: Home s/p transfer,eval at [facility]. Elinor DOMÍNGUEZ CM
--- NOTE | 2021-05-23 13:44 | CASEMGMT ---
[facility], the following are in-network tertiary facilities: [facility], [place], [facility], [place], [facility], [place], [facility], and . Elinor DOMÍNGUEZ CM
[2021-05-23] MEDS: Ipratropium/Albuterol Sulfate 3 ML AMPUL.NEB INHALATION (15:03)
[2021-05-23] MEDS: Lidocaine 5% Patch 1 PATCH TOPICAL (15:53)
[2021-05-23 16:45] LABS: Bedside Glucose 117 mg/dL (70-110)
[2021-05-23] MEDS: DiphenhydrAMINE 25 MG Capsule 50 MG PO (22:01)
[2021-05-23] MEDS: Metoprolol(XL)Succ 50 MG Tablet PO (22:12)
[2021-05-23 23:05] LABS: Bedside Glucose 151 mg/dL (70-110)
[2021-05-24] VITALS (12 sets, daily range): BP systolic 115–137; BP diastolic 63–83; PULSE 65–87; RESP 16–18; TEMP 36.6; O2SAT 90–100
[2021-05-24] MEDS: Furosemide 40 MG/4 ML Vial IV (05:59)
[2021-05-24] MEDS: 0.9% Saline Lock 10 ML Syringe IV (06:00)
[2021-05-24 06:10] LABS: Absolute Lymphocyte Count 2.09 X10^3/uL (0.83-4.51); Absolute Neutrophil Count 3.1 X10^3/uL (2.0-7.7); Basophil# 0.07 X10^3/uL; Basophil% 1.1 % (0-1); Eosinophil# 0.33 X10^3/uL; Eosinophils% 5.3 % (0-5); Hematocrit 41.2 % (37-47); Hemoglobin 12.1 g/dL (12.0-15.0); Lymphocyte # 2.09 X10^3/ul (0.83-4.51); Lymphocyte % 33.8 % (19-41); Mean Corp Hgb Conc 29.4 g/dL (32-36); Mean Corpuscular Hgb 27.6 pg (27.0-32.0); Mean Corpuscular Volume 94.1 fL (81-99); Mean Platelet Vol. 8.8 fl (6.2-12.0); Monocyte# 0.63 X10^3/uL; Monocyte% 10.2 % (0-10); NRBC Flagged by Analyzer 0.3 % (0-5); Neutrophil # 3.05 X10^3/uL (2.7-7.7); Neutrophil % 49.3 % (47-70); Platelet Count 208 K/mm3 (150-450); RBC Distribution Width CV 18.3 % (11.6-14.6); RBC Distribution Width SD 61.1 fl (35.1-43.9); Red Blood Count 4.38 M/mm3 (4.2-5.4); White Blood Count 6.2 K/mm3 (4.4-11.0)
[2021-05-24] MEDS: HYDROcodone Bitartrate/Apap 5/325 Tablet PO ×2 (06:25→18:13)
[2021-05-24 06:36] LABS: Anion Gap 11 (5-15); BUN 57 mg/dL (7-18); BUN/Creat Ratio 30.3 RATIO (10-20); Calcium,Total 8.5 mg/dL (8.5-10.1); Chloride 100 mmol/L (98-107); Creatinine, Serum 1.88 mg/dL (0.55-1.02); EST Glomerular Filtration Rate 28 mL/min (>60); Est Glom Filt Rate - Afr Amer 34 mL/min (>60); Estimated Creatinine Clearance 24.58 ml/min; Glucose 129 mg/dL (74-106); Sodium Level 136 mmol/L (136-145)
[2021-05-24 06:46] LABS: Bedside Glucose 140 mg/dL (70-110)
[2021-05-24] MEDS: Nystatin Powder 15gm Bottle 1 APPLIC TOPICAL ×2 (08:44→20:57)
[2021-05-24] MEDS: Heparin Injection (Vial) 5,000 UNIT/ML VIAL 5000 UNIT SC ×2 (08:44→20:57)
[2021-05-24] MEDS: Aspirin E.C. 81 MG Tablet PO (08:45)
[2021-05-24] MEDS: DULoxetine Hcl 30 MG Capsule PO (08:45)
[2021-05-24] MEDS: Polyethylene Glycol 3350 17 GM PACKET PO (08:45)
[2021-05-24] MEDS: Docusate Sodium 100 MG Capsule 200 MG PO (08:45)
[2021-05-24] MEDS: Pantoprazole Sodium 40 MG Tablet PO (08:45)
[2021-05-24] MEDS: Ascorbic Acid 500 MG Tablet PO (08:45)
[2021-05-24] MEDS: Metoprolol(XL)Succ 50 MG Tablet PO ×2 (08:45→20:58)
[2021-05-24] MEDS: Lidocaine 5% Patch 1 PATCH TOPICAL (08:46)
[2021-05-24] MEDS: Furosemide 40 MG Tablet PO ×2 (08:46→17:26)
[2021-05-24 11:21] LABS: Bedside Glucose 113 mg/dL (70-110)
[2021-05-24] MEDS: Ferrous Sulfate 325 MG Tablet PO (11:50)
[2021-05-24] MEDS: Acetaminophen 325 MG Tablet 650 MG PO (13:36)
--- NOTE | 2021-05-24 13:36 | PCM.PN.HOSP ---
Documented by User: Timmy SOTO 05/24/21 15:31 Subjective Subjective Patient is a 75-year-old female comfortably resting in bed, alert and oriented x3. Patient reports no symptoms and denies development of any new symptoms overnight. Denies chest pain, shortness of breath, palpitations, hemoptysis, sputum production, fever, chills, N/V/D. Objective Data Objective Data Vital Signs: Vital Signs Temp Pulse Resp BP Pulse Ox 97.8 F 70 18 123/65 H 100 05/24/21 08:42 05/24/21 08:45 05/24/21 08:42 05/24/21 08:42 05/24/21 08:42 Oxygen Flow Rate (L/min) 2 Oxygen Delivery Method Nasal Cannula Weight: 254 lb 6.615 oz Body Mass Index (BMI) 41.3 Intake & Output: Intake and Output for Last 24 Hours 05/22/21 05/23/21 05/24/21 23:59 23:59 23:59 Intake Total 350 / 590 1190 / 1430 815 / 815 Output Total 300 / 700 700 / 700 1800 / 1800 Balance 50 / -110 490 / 730 -985 / -985 Lab / Micro Data Result Diagrams: 05/24/21 05:50 05/24/21 05:50 Labs: Laboratory Results - last 24 hr 05/23/21 16:40: POC Glucose 117 H 05/23/21 21:57: POC Glucose 151 H 05/24/21 05:50: WBC 6.2, RBC 4.38, Hgb 12.1, Hct 41.2, MCV 94.1, MCH 27.6, MCHC 29.4 L, RDW Std Deviation 61.1 H, RDW Coeff of Mikie 18.3 H, Plt Count 208, MPV 8.8, Immature Gran % (Auto) 0.300, Neut % (Auto) 49.3, Lymph % (Auto) 33.8, [place] % (Auto) 10.2 H, Eos % (Auto) 5.3 H, Baso % (Auto) 1.1 H, Absolute Neuts (auto) 3.1, Absolute Lymphs (auto) 2.09, Nucleated RBC % 0.3 05/24/21 05:50: Sodium 136, Potassium 4.0, Chloride 100, Carbon Dioxide 25.0, Anion Gap 11, BUN 57 H, Creatinine 1.88 H, Estim Creat Clear Calc 24.58, Est GFR (MDRD) Af Amer 34 L, Est GFR (MDRD) Non-Af 28 L, BUN/Creatinine Ratio 30.3 H, Glucose 129 H, Calcium 8.5 05/24/21 06:31: POC Glucose 140 H 05/24/21 11:00: POC Glucose 113 H Micro: Microbiology 05/21/21 09:44 Nasal Secretion SARS-CoV-2 Antigen (Rapid) - Final Physical Exam Const alert, oriented x3 and no apparent distress HEENT head/scalp atraumatic and moist oral mucous membranes Head and Scalp: normocephalic Eyes PERRL, EOMs intact bilaterally and conjunctivae normal Neck no lymphadenopathy, supple and no JVD Resp normal respiratory effort, normal air movement and no use of accessory muscles Auscultation: diminished lung sounds Cardio regular rate, regular rhythm, no murmurs and no JVD GI normal to inspection, nondistended, normoactive bowel sounds, soft to palpation and non-tender Extremity normal to inspection, full ROM and no clubbing, cyanosis or edema Skin no rashes or lesions noted, no wounds, skin turgor normal and no jaundice Neuro CN's II-XII intact bilaterally Psych affect normal Assessment & Plan Assessment/Plan (1) Acute right-sided heart failure: (2) CKD (chronic kidney disease) stage 3, GFR 30-59 ml/min: (3) LUCIANO (acute kidney injury): (4) Combined systolic and diastolic congestive heart failure: (5) Biventricular heart failure: PLAN: Day 3 Discharge planning: Currently awaiting bed to transfer to [facility]. 1) Acute on chronic heart failure with preserved ejection fraction/diastolic dysfunction Echocardiogram 04/05/2021 demonstrated an EF of 50%, severely dilated right ventricle, severe global right ventricular systolic dysfunction, an RVSP 87 mmHg and a D-shaped septum during systole and diastole. Currently awaiting bed at [facility] for evaluation of abnormal systolic/diastolic dysfunction. Continue metoprolol succinate and Lasix 40 mg p.o. twice daily. 2) Severe pulmonary hypertension with chronic hypoxic respiratory failure RVSP 87 mmHg as above. Continue PAP regimen. Continue supplemental oxygen to maintain O2 above 90%. Transfer to [facility] as above 3) Acute kidney injury on chronic kidney disease stage IIIb Creatinine elevated from yesterday. IV Lasix discontinued, transition to oral. Trend BMP. 4) HTN Stable, continue metoprolol. Losartan, spironolactone held. 5) atrial fibrillation/flutter Rate control on metoprolol, not on anticoagulation. 6) history of PE/DVT Does not appear to be on oral anticoagulation. 7) Type 2 diabetes mellitus Continue to hold metformin. Accu-Cheks with sliding scale insulin ordered. 8) GERD Continue PPI. 9) Morbid obesity Encouraged diet and lifestyle modifications. 10) Constipation Initiated on bowel regimen. DVT prophylaxis - Heparin Patient seen by Timmy Rondon PA-C, under the supervision of Dr. Sommers. Documented by User: Dr. Janett Sommers DO 05/24/21 18:09 Subjective Subjective This patient was seen in conjunction with BRITTANY Piper. The following is representation my independent history and physical exam. Please see below for addendum the above. Patient states she is feeling much better and is able to ambulate now with less shortness of breath. Still with considerable lower extremity swelling. Less abdominal edema. Objective Data Lab / Micro Data Result Diagrams: 05/24/21 05:50 05/24/21 05:50 Physical Exam Const alert, oriented x3 and no apparent distress Constitutional Narrative: Morbidly obese white female sitting up in a chair at the bedside, appears comfortable, no signs of shortness of breath or dyspnea with conversation. Orientation / Consciousness: awake, oriented to person, oriented to place and oriented to time Exam Limitations: no limitations Nutritional Appearance: morbidly obese HEENT normocephalic, head/scalp atraumatic and moist oral mucous membranes Head and Scalp: normocephalic Resp normal respiratory effort, no retractions, no use of accessory muscles and clear to auscultation bilaterally Auscultation: diminished lung sounds; Negative for crackles, rales, rhonchi or wheezes Cardio regular rate, regular rhythm, S1 normal heart sound, S2 normal heart sound, no murmurs, no rub, no gallops, no clicks and no JVD Peripheral Pulses: pulses 2+ throughout GI normal to inspection, nondistended, normoactive bowel sounds, soft to palpation, non-tender and non-distended Extremity normal to inspection Extremity Narrative: Legs are tender, no cyanosis or clubbing, edema is 2+ on the right 1+ on the left General Extremity: edema bilateral ([place] wraps in place) lower extremity Details: severe Peripheral Pulses: Yes pulses 2+ throughout Skin Lesions: no lesions Rashes: no rashes Trauma: no lacerations or abrasions Neuro oriented x3, moves all extremities and deep tendon reflexes 2+ bilaterally Sensorium / Orientation: awake and alert Speech: speech normal Psych mental status grossly normal Assessment & Plan Assessment/Plan (1) Acute right-sided heart failure: (2) CKD (chronic kidney disease) stage 3, GFR 30-59 ml/min: (3) LUCIANO (acute kidney injury): PLAN: Assessment: Acute on chronic right-sided heart failure Diastolic dysfunction Severe pulmonary artery hypertension Chronic hypoxic respiratory failure Obstructive sleep apnea LUCIANO-resolving CKD stage IIIb 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 Harrington by [facility] and patient was determined to not be a good surgical candidate -Referral to [facility] for second opinion was made as the patient is having significant issues with quality of life based on her current status -Patient has been accepted for transfer to [facility] and we are currently still awaiting a bed -Since the patient is becoming clinically stable we will reevaluate her tomorrow and if still no bed available she is amenable to discharge home with outpatient follow-up -Slight increase in renal function today. Will decrease diuresis from IV push 40 mg 3 times daily to p.o. 40 mg twice daily -Continue diuresis 40 mg 3 times daily IV push and watch renal function slowly -Continue fluid restriction and daily weights -Weight has stabilized -Continue bilateral lower extremity compression wraps -Supplemental O2 as needed able -Continue nocturnal CPAP Charges/Coding Visit Charges Inpatient E&M: 99898 Subs Hosp L2
--- NOTE | 2021-05-24 14:50 | CASEMGMT ---
Addendum entered by Jojo Mason 05/24/21 15:04: Pt/ updated on all, voice understanding. Bridger SOTO to get ahold of Dr. Harrington. Elinor DOMÍNGUEZ CM Original Note: [facility] community youth secretary placed call to [facility] transfer line and they state they will not have a bed anytime soon and they are boarding pt's in their emergency room with very few discharges today. This RN CM placed call to [facility] pulmonary hypertension clinic to see if pt's 06/13/21 appt could be moved up to a sooner time and per clinic, pt is not scheduled to see them on 06/13 but is scheduled to see Dr. Ruiz, [facility] hooker up. Call to Dr. Ruiz's outsole scheduler and they do not have any sooner appt's with Dr. Ruiz at this time. Bridger SOTO updated on all, voices understanding. CM to follow. Elinor DOMÍNGUEZ CM
[2021-05-24 16:20] LABS: Bedside Glucose 122 mg/dL (70-110)
[2021-05-24] MEDS: DiphenhydrAMINE 25 MG Capsule 50 MG PO (20:56)
[2021-05-24] MEDS: Insulin Lispro 100 UNIT/ML INSULN.PEN SC (20:57)
[2021-05-24 21:56] LABS: Bedside Glucose 183 mg/dL (70-110)
[2021-05-24] MEDS: Magnesium Chloride 64 MG Delay Rel.Tablet 128 MG PO (22:10)
[2021-05-25] VITALS (8 sets, daily range): BP systolic 92–117; BP diastolic 65–73; PULSE 64–70; RESP 12–18; TEMP 36.4–36.7; O2SAT 89–100
[2021-05-25] MEDS: HYDROcodone Bitartrate/Apap 5/325 Tablet PO ×2 (03:10→14:08)
[2021-05-25 06:51] LABS: Bedside Glucose 124 mg/dL (70-110)
[2021-05-25 08:02] LABS: Anion Gap 9 (5-15); BUN 57 mg/dL (7-18); BUN/Creat Ratio 34.5 RATIO (10-20); Calcium,Total 9.1 mg/dL (8.5-10.1); Chloride 101 mmol/L (98-107); Creatinine, Serum 1.65 mg/dL (0.55-1.02); EST Glomerular Filtration Rate 32 mL/min (>60); Est Glom Filt Rate - Afr Amer 39 mL/min (>60); Glucose 124 mg/dL (74-106); Sodium Level 138 mmol/L (136-145)
[2021-05-25] MEDS: Heparin Injection (Vial) 5,000 UNIT/ML VIAL 5000 UNIT SC (08:43)
[2021-05-25] MEDS: Pantoprazole Sodium 40 MG Tablet PO (08:43)
[2021-05-25] MEDS: Polyethylene Glycol 3350 17 GM PACKET PO (08:43)
[2021-05-25] MEDS: Docusate Sodium 100 MG Capsule 200 MG PO (08:43)
[2021-05-25] MEDS: DULoxetine Hcl 30 MG Capsule PO (08:43)
[2021-05-25] MEDS: Furosemide 40 MG Tablet PO (08:43)
[2021-05-25] MEDS: Ascorbic Acid 500 MG Tablet PO (08:43)
[2021-05-25] MEDS: Metoprolol(XL)Succ 50 MG Tablet PO (08:43)
[2021-05-25] MEDS: Aspirin E.C. 81 MG Tablet PO (08:43)
[2021-05-25] MEDS: Nystatin Powder 15gm Bottle 1 APPLIC TOPICAL (08:44)
[2021-05-25] MEDS: Lidocaine 5% Patch 1 PATCH TOPICAL (10:58)
[2021-05-25] MEDS: Ferrous Sulfate 325 MG Tablet PO (11:54)
[2021-05-25] MEDS: Insulin Lispro 100 UNIT/ML INSULN.PEN SC (11:54)
[2021-05-25 12:01] LABS: Bedside Glucose 152 mg/dL (70-110)
[2021-05-25 12:36] LABS: Magnesium 2.3 mg/dL (1.6-2.6)
--- NOTE | 2021-05-25 13:57 | CASEMGMT ---
Addendum entered by Jojo Mason 05/25/21 15:21: No bed at [facility] at this time and plan is for pt to go home until appt 06/13/21. Pt is ok with this and does not qualify for increased home oxygen. Therapy is recommending OP therapy and pt is aware but would like to wait until she f/u's with [facility] tandem mill sticker before any further therapy. Pt voices no further questions/concerns/needs. Pt encouraged to call [facility] cardiology office on friday to see if there are any sooner appt's and to be put on cancellation list, voices understanding. Elinor DOMÍNUGEZ CM Original Note: Pt still awaiting bed at [facility] and [facility] church secretary to call and check on bed situation at 1400 today. Green sheet on chart if pt qualifies for increased O2 and ends up being discharged instead of transfer to [facility]. Pt needs tested on 2L at rest and 2L w/ ambulation. Elinor DOMÍNGUEZ CM
--- NOTE | 2021-05-25 14:48 | PCM.DC ---
Discharge Instructions Diet Discharge Diet: No restrictions Activity Discharge Activity: Return to Normal Activity Weight Bearing Status: Weight bearing as tolerated Dressing / Incision Call your doctor if you observe: Fever of 101 or Higher, Numbness or Tingling, Shortness of breath, Dizziness, Chest pain, Increased palpitations (irregular heartbeat) and Calf discomfort Follow Up Care Please Follow Up With: Primary care provider When: Within the next two weeks. Test Results: Test results from this visit will be discussed in further detail at your follow-up appointment, if applicable. Discharge Plan Admission Admit Date/Time: 05/21/21 13:49 Primary Reason for Your Visit: Shortness of breath Attending Provider: Juwan Pineda Primary Care Provider: Gerard Kothari Instructions Additional Instructions / Restrictions: Attend your outpatient appointment on 06/13/2021 with the cna hha, Dr. Ruiz, at [facility]. Discharge Orders/Prescriptions Prescriptions: New furosemide [Lasix] 40 mg tablet 40 mg PO BID Qty: 60 RF: 0 Continued ibuprofen [Advil] 200 mg tablet 1 tab PO DAILY PRN PRN (Reason: Pain Score 1-3/10) RF: 0 allergen PINE IGE 1 unit MC DAILY RF: 0 aspirin [Adult Low Dose Aspirin] 81 mg tablet,delayed release (DR/EC) 81 mg PO DAILY RF: 0 cholecalciferol (vitamin D3) 25 mcg (1,000 unit) capsule 25 mcg PO DAILY RF: 0 ascorbic acid (vitamin C) 500 mg tablet 500 mg PO DAILY RF: 0 multivitamin Tablet 1 tab PO DAILY RF: 0 magnesium 500 mg Tablet 500 mg PO QHS RF: 0 omeprazole 40 mg Capsule,Delayed Release(Dr/Ec) 40 mg PO DAILY RF: 0 diphenhydramine HCl [Benadryl] 25 mg Capsule 50 mg PO QHS RF: 0 ferrous sulfate 325 mg (65 mg iron) Tablet 325 mg PO DAILY RF: 0 calcium citrate-vitamin D3 [Calcium Citrate + D] 315 mg-5 mcg (200 unit) Tablet 1 tab PO DAILY RF: 0 duloxetine 30 mg capsule,delayed release(DR/EC) 30 mg PO DAILY RF: 0 metoprolol succinate 50 mg tablet extended release 24 hr 50 mg PO BID Qty: 180 RF: 3 spironolactone 50 mg tablet 50 mg PO DAILY Qty: 90 RF: 3 losartan 50 mg tablet 50 mg PO DAILY Qty: 90 RF: 3 metformin 500 mg tablet 500 mg PO TID Qty: 270 RF: 3 hydrocodone-acetaminophen 5-325 mg tablet 1 tab PO Q8H PRN (Reason: pain) 30 Days Qty: 90 RF: 0 Discontinued furosemide 40 mg tablet 40 mg PO .COMPLEX Qty: 135 RF: 3 Referrals / Follow Up: Gerard Kothari DO [Primary Care Provider] - Within 2 Weeks Disposition Disposition (needs filled in before D/C Order can be placed): Home, Self Care
--- NOTE | 2021-05-25 14:57 | PCM.DC.SUM ---
Documented by User: Timmy SOTO 05/25/21 15:03 Providers Date of Admission: 05/21/21 Primary Care Physician: Dr. Gerard Kothari, DO Consultations 05/22/21 08:29 Consult: Onc/Wound/public health service officer Routine Comment: Reason For Visit: ACUTE CHF Diagnosis Discharge Diagnosis (1) Acute right-sided heart failure: Status: Acute Code(s): I50.811 - Acute right heart failure (2) CKD (chronic kidney disease) stage 3, GFR 30-59 ml/min: Status: Chronic Code(s): N18.30 - Chronic kidney disease, stage 3 unspecified (3) LUCIANO (acute kidney injury): Status: Acute Code(s): N17.9 - Acute kidney failure, unspecified Medications at Discharge Home Medications allergen PINE IGE 1 unit MC DAILY 11/06/17 ibuprofen 200 mg tablet 1 tab PO DAILY PRN PRN 11/06/17 aspirin 81 mg tablet,delayed release 81 mg PO DAILY 01/21/20 metoprolol succinate 50 mg tablet,extended release 24 hr 50 mg PO BID #180 tab 09/15/20 spironolactone 50 mg tablet 50 mg PO DAILY #90 tab 12/01/20 losartan 50 mg tablet 50 mg PO DAILY #90 tab 12/11/20 ascorbic acid (vitamin C) 500 mg tablet 500 mg PO DAILY 03/15/21 cholecalciferol (vitamin D3) 25 mcg (1,000 unit) capsule 25 mcg PO DAILY 03/15/21 metformin 500 mg tablet 500 mg PO TID #270 tab 03/19/21 hydrocodone-acetaminophen 5-325mg 5mg-325mg 1 tab PO Q8H PRN 30 Days #90 tab 05/04/21 calcium citrate-vitamin D3 [Calcium Citrate + D] 1 tab PO DAILY 05/21/21 diphenhydramine HCl [Benadryl] 50 mg PO QHS 05/21/21 duloxetine 30 mg PO DAILY 05/21/21 ferrous sulfate 325 mg PO DAILY 05/21/21 magnesium 500 mg PO QHS 05/21/21 multivitamin 1 tab PO DAILY 05/21/21 omeprazole 40 mg PO DAILY 05/21/21 furosemide [Lasix] 40 mg PO BID #60 tab 05/25/21 Hospital Course Summary of Care Provided Minutes Spent on Discharge: 35 Hospital Course: Disposition: Patient to be discharge home since no beds are currently available for transfer at [facility]. 1) Acute on chronic heart failure with preserved ejection fraction/diastolic dysfunction Attempted to contact [facility] for bed, [facility] informs [facility] that no beds are available and that they are unaware of when a bed will become available. Patient does have a appointment with a drywall taper helper at [facility], Dr. Ruiz, on June 03, 2021. Patient will attend appointment and attempt to be evaluated for surgery at that time. Echocardiogram 04/05/2021 demonstrated an EF of 50%, severely dilated right ventricle, severe global right ventricular systolic dysfunction, an RVSP 87 mmHg and a D-shaped septum during systole and diastole. Continue home medication regimen, Lasix increased to twice daily. 2) Severe pulmonary hypertension with chronic hypoxic respiratory failure RVSP 87 mmHg as above. Plan; as above. 3) Acute kidney injury on chronic kidney disease stage IIIb Stable. 4) HTN Stable, continue home BP regimen. 5) atrial fibrillation/flutter Rate control on metoprolol, not on anticoagulation. 6) history of PE/DVT Does not appear to be on oral anticoagulation. 7) Type 2 diabetes mellitus Continue to hold metformin. Accu-Cheks with sliding scale insulin ordered. 8) GERD Continue PPI. 9) Morbid obesity Encouraged diet and lifestyle modifications. 10) Constipation Initiated on bowel regimen. Patient seen by Timmy Rondon PA-C, under the supervision of Dr. Pineda. Physical Exam Const alert, oriented x3 and no apparent distress HEENT normocephalic, head/scalp atraumatic and hearing grossly normal bilaterally Eyes PERRL, EOMs intact bilaterally and conjunctivae normal Neck no lymphadenopathy, supple and no JVD Resp normal respiratory effort, no retractions, no use of accessory muscles and clear to auscultation bilaterally Cardio regular rate, regular rhythm, no murmurs and no JVD GI normal to inspection, nondistended, normoactive bowel sounds, soft to palpation and non-tender Extremity normal to inspection, full ROM and no clubbing, cyanosis or edema Skin no rashes or lesions noted, no wounds and skin turgor normal Neuro CN's II-XII intact bilaterally Psych affect normal Weight / BMI Weight Weight: 253 lb 1.451 oz Body Mass Index (BMI) 41.3 ABG / Lab / Microbiology Data Result Diagrams: 05/24/21 05:50 05/25/21 06:40 Laboratory: Laboratory Results - last 24 hr 05/24/21 16:18: POC Glucose 122 H 05/24/21 20:54: POC Glucose 183 H 05/25/21 06:37: POC Glucose 124 H 05/25/21 06:40: Sodium 138, Potassium 4.0, Chloride 101, Carbon Dioxide 28.0, Anion Gap 9, BUN 57 H, Creatinine 1.65 H, Estim Creat Clear Calc 28.00, Est GFR (MDRD) Af Amer 39 L, Est GFR (MDRD) Non-Af 32 L, BUN/Creatinine Ratio 34.5 H, Glucose 124 H, Calcium 9.1 05/25/21 06:40: Magnesium 2.3 05/25/21 11:52: POC Glucose 152 H Microbiology: Microbiology 05/21/21 09:44 Nasal Secretion SARS-CoV-2 Antigen (Rapid) - Final D/C Instructions Discharge Diet: No restrictions Weight Bearing Status: Weight bearing as tolerated Call your doctor if you observe: Fever of 101 or Higher, Numbness or Tingling, Shortness of breath, Dizziness, Chest pain, Increased palpitations (irregular heartbeat) and Calf discomfort Please Follow Up With: Primary care provider When: Within the next two weeks. Meaningful Use Info Meaningful Use Diagnoses (Choose all that apply): None applicable Discharge Plan Admission Admit Date/Time: 05/21/21 13:49 Primary Reason for Your Visit: Shortness of breath Attending Provider: Juwan Pineda Primary Care Provider: Gerard Kothari Instructions Additional Instructions / Restrictions: Attend your outpatient appointment on 06/13/2021 with the drywall taper helper, Dr. Ruiz, at [facility]. Discharge Orders/Prescriptions Prescriptions: New furosemide [Lasix] 40 mg tablet 40 mg PO BID Qty: 60 RF: 0 Continued ibuprofen [Advil] 200 mg tablet 1 tab PO DAILY PRN PRN (Reason: Pain Score 1-3/10) RF: 0 allergen PINE IGE 1 unit MC DAILY RF: 0 aspirin [Adult Low Dose Aspirin] 81 mg tablet,delayed release (DR/EC) 81 mg PO DAILY RF: 0 cholecalciferol (vitamin D3) 25 mcg (1,000 unit) capsule 25 mcg PO DAILY RF: 0 ascorbic acid (vitamin C) 500 mg tablet 500 mg PO DAILY RF: 0 multivitamin Tablet 1 tab PO DAILY RF: 0 magnesium 500 mg Tablet 500 mg PO QHS RF: 0 omeprazole 40 mg Capsule,Delayed Release(Dr/Ec) 40 mg PO DAILY RF: 0 diphenhydramine HCl [Benadryl] 25 mg Capsule 50 mg PO QHS RF: 0 ferrous sulfate 325 mg (65 mg iron) Tablet 325 mg PO DAILY RF: 0 calcium citrate-vitamin D3 [Calcium Citrate + D] 315 mg-5 mcg (200 unit) Tablet 1 tab PO DAILY RF: 0 duloxetine 30 mg capsule,delayed release(DR/EC) 30 mg PO DAILY RF: 0 metoprolol succinate 50 mg tablet extended release 24 hr 50 mg PO BID Qty: 180 RF: 3 spironolactone 50 mg tablet 50 mg PO DAILY Qty: 90 RF: 3 losartan 50 mg tablet 50 mg PO DAILY Qty: 90 RF: 3 metformin 500 mg tablet 500 mg PO TID Qty: 270 RF: 3 hydrocodone-acetaminophen 5-325 mg tablet 1 tab PO Q8H PRN (Reason: pain) 30 Days Qty: 90 RF: 0 Discontinued furosemide 40 mg tablet 40 mg PO .COMPLEX Qty: 135 RF: 3 Referrals / Follow Up: Gerard Kothari DO [Primary Care Provider] - Within 2 Weeks Disposition Disposition (needs filled in before D/C Order can be placed): Home, Self Care Documented by User: Dr. Juwan Pineda MD 05/25/21 16:53 Providers Date of Admission: 05/21/21 Date of Discharge: 05/25/21 Reason For Visit: ACUTE CHF Medications at Discharge Home Medications allergen PINE IGE 1 unit MC DAILY 11/06/17 ibuprofen 200 mg tablet 1 tab PO DAILY PRN PRN 11/06/17 aspirin 81 mg tablet,delayed release 81 mg PO DAILY 01/21/20 metoprolol succinate 50 mg tablet,extended release 24 hr 50 mg PO BID #180 tab 09/15/20 spironolactone 50 mg tablet 50 mg PO DAILY #90 tab 12/01/20 losartan 50 mg tablet 50 mg PO DAILY #90 tab 12/11/20 ascorbic acid (vitamin C) 500 mg tablet 500 mg PO DAILY 03/15/21 cholecalciferol (vitamin D3) 25 mcg (1,000 unit) capsule 25 mcg PO DAILY 03/15/21 metformin 500 mg tablet 500 mg PO TID #270 tab 03/19/21 hydrocodone-acetaminophen 5-325mg 5mg-325mg 1 tab PO Q8H PRN 30 Days #90 tab 05/04/21 calcium citrate-vitamin D3 [Calcium Citrate + D] 1 tab PO DAILY 05/21/21 diphenhydramine HCl [Benadryl] 50 mg PO QHS 05/21/21 duloxetine 30 mg PO DAILY 05/21/21 ferrous sulfate 325 mg PO DAILY 05/21/21 magnesium 500 mg PO QHS 05/21/21 multivitamin 1 tab PO DAILY 05/21/21 omeprazole 40 mg PO DAILY 05/21/21 furosemide [Lasix] 40 mg PO BID #60 tab 05/25/21 Hospital Course Summary of Care Provided Hospital Course: This patient was seen in conjunction with BRITTANY Temple. I have independently interviewed and examined the patient and reviewed pertinent history, examination findings, laboratory and plan of management. I have reviewed the note and agree with the documented findings with the few additional points. In brief, patient was admitted for acute on chronic heart failure with preserved EF/diastolic heart failure and severe pulmonary hypertension. 2D echo shows EF 50% with severely dilated RV, global RV systolic dysfunction, severe biatrial enlargement, RVSP 80 mmHg consistent with severe pulmonary hypertension. Echo images were reviewed with [facility] by Dr. Harrington and patient not a good surgical candidate patient is on oxygen. Patient was waiting for bed at [facility] and is hopeful in the morning but still bed not open. Patient clinically got better and wants to go home. On Lasix. Heart failure core measures including intake and output, fluid restriction less than 1500 mL, daily weight monitoring, kidney and electrolytes monitoring. Continue nocturnal CPAP and supplemental oxygen. Patient has outpatient appointment with [facility] on May 14. Acute kidney injury CKD stage IIIb: Acute kidney injury improved. Creatinine improved to 1.65 from 1.88. Discharge medication reconciliation done. Discharge follow-up instructions completed. Discharge process discussed with the patient and all questions were answered to patient's satisfaction. Total time spent, exact 35 minutes on discharge meds reconciliation, examination, coordination of care with nurses and ancillary staff, review of imaging and blood test and discussion with the patient on follow-up instructions I have discussed my assessment with BRITTANY Temple and orders have been reviewed. Physical Exam Narrative Patient shortness of breath is much improved. Leg swelling has improved. Patient can walk to the bathroom without getting short of breath. Cardiac telemetry shows sinus rhythm with PVCs and pulses bigeminy. General: Alert, Oriented x3, Cooperative HEENT: Atraumatic, PERRLA, EOMI, Normocephalic Oral: No Gingival or Mucosal Lesions/ Ulcerations Neck: Supple, No JVD, Negative Carotid Bruits Lungs: Air entry diminished in bilateral lung bases. No crepitation/rhonchi Cardiovascular: Sinus rhythm with PVCs, Normal S1, Normal S2, systolic murmurs Abdomen: Bowel Sounds Present, Soft, Non Tender, Non-Distended : No renal angle tenderness. No suprapubic tenderness. Extremities: Bilateral leg improving edema, Capillary Refill Less than 3 Seconds Skin: No rashes, No breakdown Musculoskeletal: No Tenderness to Palpation of Joints or Extremities Neurological: Cranial nerves II-XII grossly intact, DTR 2+/4 and Symmetrical, Neuro grossly intact Psych/Mental Status: Normal Affect, Appropriate. ABG / Lab / Microbiology Data Result Diagrams: 05/24/21 05:50 05/25/21 06:40 Discharge Plan Admission Admit Date/Time: 05/21/21 13:49 Primary Reason for Your Visit: Shortness of breath Attending Provider: Juwan Pineda Primary Care Provider: Gerard Kothari Instructions Additional Instructions / Restrictions: Attend your outpatient appointment on 06/13/2021 with the drywall taper helper, Dr. Ruiz, at [facility]. Discharge Orders/Prescriptions Prescriptions: New furosemide [Lasix] 40 mg tablet 40 mg PO BID Qty: 60 RF: 0 Continued ibuprofen [Advil] 200 mg tablet 1 tab PO DAILY PRN PRN (Reason: Pain Score 1-3/10) RF: 0 allergen PINE IGE 1 unit MC DAILY RF: 0 aspirin [Adult Low Dose Aspirin] 81 mg tablet,delayed release (DR/EC) 81 mg PO DAILY RF: 0 cholecalciferol (vitamin D3) 25 mcg (1,000 unit) capsule 25 mcg PO DAILY RF: 0 ascorbic acid (vitamin C) 500 mg tablet 500 mg PO DAILY RF: 0 multivitamin Tablet 1 tab PO DAILY RF: 0 magnesium 500 mg Tablet 500 mg PO QHS RF: 0 omeprazole 40 mg Capsule,Delayed Release(Dr/Ec) 40 mg PO DAILY RF: 0 diphenhydramine HCl [Benadryl] 25 mg Capsule 50 mg PO QHS RF: 0 ferrous sulfate 325 mg (65 mg iron) Tablet 325 mg PO DAILY RF: 0 calcium citrate-vitamin D3 [Calcium Citrate + D] 315 mg-5 mcg (200 unit) Tablet 1 tab PO DAILY RF: 0 duloxetine 30 mg capsule,delayed release(DR/EC) 30 mg PO DAILY RF: 0 metoprolol succinate 50 mg tablet extended release 24 hr 50 mg PO BID Qty: 180 RF: 3 spironolactone 50 mg tablet 50 mg PO DAILY Qty: 90 RF: 3 losartan 50 mg tablet 50 mg PO DAILY Qty: 90 RF: 3 metformin 500 mg tablet 500 mg PO TID Qty: 270 RF: 3 hydrocodone-acetaminophen 5-325 mg tablet 1 tab PO Q8H PRN (Reason: pain) 30 Days Qty: 90 RF: 0 Discontinued furosemide 40 mg tablet 40 mg PO .COMPLEX Qty: 135 RF: 3 Referrals / Follow Up: Gerard Kothari DO [Primary Care Provider] - Within 2 Weeks Disposition Disposition (needs filled in before D/C Order can be placed): Home, Self Care Charges/Coding Visit Charges Inpatient E&M: 61248 Disch Hosp
--- NOTE | 2021-05-25 15:33 | PHA.DC.MR ---
Pharmacy Service has performed discharge medication reconciliation for this patient. No new medications to patient, had lasix dose adjustment, pt was taking previously. Home Medications allergen PINE IGE 1 unit MC DAILY 11/06/17 ibuprofen 200 mg tablet 1 tab PO DAILY PRN PRN 11/06/17 aspirin 81 mg tablet,delayed release 81 mg PO DAILY 01/21/20 metoprolol succinate 50 mg tablet,extended release 24 hr 50 mg PO BID #180 tab 09/15/20 spironolactone 50 mg tablet 50 mg PO DAILY #90 tab 12/01/20 losartan 50 mg tablet 50 mg PO DAILY #90 tab 12/11/20 ascorbic acid (vitamin C) 500 mg tablet 500 mg PO DAILY 03/15/21 cholecalciferol (vitamin D3) 25 mcg (1,000 unit) capsule 25 mcg PO DAILY 03/15/21 metformin 500 mg tablet 500 mg PO TID #270 tab 03/19/21 hydrocodone-acetaminophen 5-325mg 5mg-325mg 1 tab PO Q8H PRN 30 Days #90 tab 05/04/21 calcium citrate-vitamin D3 [Calcium Citrate + D] 1 tab PO DAILY 05/21/21 diphenhydramine HCl [Benadryl] 50 mg PO QHS 05/21/21 duloxetine 30 mg PO DAILY 05/21/21 ferrous sulfate 325 mg PO DAILY 05/21/21 magnesium 500 mg PO QHS 05/21/21 multivitamin 1 tab PO DAILY 05/21/21 omeprazole 40 mg PO DAILY 05/21/21 furosemide [Lasix] 40 mg PO BID #60 tab 05/25/21 The patient's discharge medication list was reviewed for discrepancies and discrepancies were resolved.
--- NOTE | 2021-05-28 14:57 | CASEMGMT ---
[facility] Discharge Follow-up Phone Call: FIDELIA: Chance Strata: 3 Call Date: 05/28/21 Discharge Date: 05/25/21 Time of Call: 1450 Admitting Diagnosis: A/C CHF, pulmonary HTN This [facility] contacted pt via phone for discharge follow-up. Pt states she just finished her follow-up appointment with Dr. Teran and he has provided her with additional medication management and wound management prescriptions. Pt expressed concern that her discharge instructions did not include care of her leg wound. Pt states she did contact the wound center for follow-up but was told she needed a referral from her PCP which pt was getting from Dr. Teran. Pt states they were getting in line to pick pulling machine tender her prescriptions. Pt denied any additional questions or concerns at this time. Deepthi Vivar RN CM
== END 2021-05-25 15:53 | disposition home or self-care (01) | DRG 291 ==
LOC: ED 14:00 → PCU 14:15
PROVIDERS: Internal Medicine; Nurse Practitioner Family; Physician Assistant; Admitting Provider Internal Medicine; Emergency Provider Emergency Medicine; PCP Family Medicine; Visit Provider Internal Medicine
DX: I13.0 Hypertensive heart and chronic kidney disease with heart failure and stage 1 through stage 4 chronic kidney disease, or unspecified chronic kidney disease (principal); I50.43 Acute on chronic combined systolic (congestive) and diastolic (congestive) heart failure; J96.11 Chronic respiratory failure with hypoxia; N17.9 Acute kidney failure, unspecified; Q24.5 Malformation of coronary vessels; Q21.1 Atrial septal defect; Z68.41 Body mass index [BMI] 40.0-44.9, adult; I27.21 Secondary pulmonary arterial hypertension; N18.32 Chronic kidney disease, stage 3b; E11.22 Type 2 diabetes mellitus with diabetic chronic kidney disease; Z23 Encounter for immunization; E66.01 Morbid (severe) obesity due to excess calories; I48.0 Paroxysmal atrial fibrillation; G47.33 Obstructive sleep apnea (adult) (pediatric); E78.5 Hyperlipidemia, unspecified; G89.29 Other chronic pain; S80.821A Blister (nonthermal), right lower leg, initial encounter; K21.9 Gastro-esophageal reflux disease without esophagitis; K59.00 Constipation, unspecified; Z66 Do not resuscitate; Y09 Assault by unspecified means; Y93.9 Activity, unspecified; Y92.9 Unspecified place or not applicable; Y99.9 Unspecified external cause status; Z99.81 Dependence on supplemental oxygen; Z79.899 Other long term (current) drug therapy; Z79.82 Long term (current) use of aspirin; Z79.84 Long term (current) use of oral hypoglycemic drugs; Z86.711 Personal history of pulmonary embolism; Z98.84 Bariatric surgery status; Z87.891 Personal history of nicotine dependence; Z86.718 Personal history of other venous thrombosis and embolism
CPT/HCPCS: 36415; 71045; 80048; 80053; 82962; 83605; 83735; 83880; 84484; 85025; 87426; 93005; 94640; 97110; 97162; 97166; 97530; 97535; 97802; 99251; 99285; G0008; 90686; A4216; G0463; J1940

== ENCOUNTER → 2021-06-01 11:27 | Outpatient (CLI) | payer MEDICARE, SELFPAY ==
[2021-06-01 12:49] LABS: Anion Gap 13 (5-15); BUN 55 mg/dL (7-18); BUN/Creat Ratio 27.8 RATIO (10-20); Calcium,Total 9.2 mg/dL (8.5-10.1); Chloride 100 mmol/L (98-107); Creatinine, Serum 1.98 mg/dL (0.55-1.02); EST Glomerular Filtration Rate 26 mL/min (>60); Est Glom Filt Rate - Afr Amer 32 mL/min (>60); Glucose 138 mg/dL (74-106); Magnesium 2.2 mg/dL (1.6-2.6); Potassium 5.2 mmol/L (3.5-5.1); Sodium Level 136 mmol/L (136-145)
== END ==
PROVIDERS: PCP Family Medicine; Referring Provider Internal Medicine; Visit Provider Internal Medicine
DX: N18.30 Chronic kidney disease, stage 3 unspecified (principal); I50.82 Biventricular heart failure
CPT/HCPCS: 36415; 80048; 83735

== ENCOUNTER 2021-06-21 14:30 | Outpatient (RCR) | payer MEDICARE, SELFPAY ==
[2021-05-31 14:13] VITALS: BP 112/79; PULSE 78; TEMP 36.1
--- NOTE | 2021-05-31 15:40 | PCM.WC.HP ---
History of Present Illness Date of Service: 05/31/21 Chief Complaint: right lower extremity ulcer History of Wound: This is a 75-year-old white female who presents to the wound healing center today for complaint of nonhealing ulcer to her right lower extremity. She has a past medical history as listed above. Patient was hospitalized from 05/21/2021 to 05/25/2021 And treated for a CHF exacerbation. During her stay, she developed a large blister to her right lower extremity that eventually became open. The patient states that her BLEs were significantly swollen and she thinks this is what caused the blister. When she went to her hospital follow-up Appointment with her PCP, he put her on doxycycline, and ordered wound care that included triple antibiotic ointment, Telfa, and Kerlix. He referred her to this wound care center for further management. The patient states this wound has been causing her significant pain. However she denies any purulent drainage or any surrounding warmth at this time. Denies any other systemic or localized signs of infection. Past medical, family, and social history reviewed and not pertinent to the current visit and all other systems reviewed and negative with exception of those listed above. 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 Deep vein thrombosis Diabetes type 2, controlled Diastolic dysfunction Epidermal cyst of vulva Essential (primary) hypertension History of pneumonia History of pulmonary embolism (2006) Hyperlipidemia Moderate right ventricular systolic dysfunction Morbid obesity Vicente's neuroma of left foot Non-ischemic cardiomyopathy Nonrheumatic mitral (valve) insufficiency Nonsustained ventricular tachycardia Obstructive sleep apnea Osteoarthritis Paroxysmal atrial fibrillation Patent foramen ovale Right ventricular dilation Seasonal allergies Secondary pulmonary arterial hypertension Trigger finger, left little finger Type 2 diabetes mellitus Venous ulcer of right lower extremity with varicose veins Home Medications allergen PINE IGE 1 unit MC DAILY 11/06/17 [History Last Taken 05/20/21] ibuprofen 200 mg tablet 1 tab PO DAILY PRN PRN 11/06/17 [History Last Taken 05/19/21] aspirin 81 mg tablet,delayed release 81 mg PO DAILY 01/21/20 [History Last Taken 05/20/21] metoprolol succinate 50 mg tablet,extended release 24 hr 50 mg PO BID #180 tab 09/15/20 [Rx Last Taken 05/20/21] spironolactone 50 mg tablet 50 mg PO DAILY #90 tab 12/01/20 [Rx Last Taken 05/20/21] losartan 50 mg tablet 50 mg PO DAILY #90 tab 12/11/20 [Rx Last Taken 05/20/21] ascorbic acid (vitamin C) 500 mg tablet 500 mg PO DAILY 03/15/21 [History Last Taken 05/20/21] cholecalciferol (vitamin D3) 25 mcg (1,000 unit) capsule 25 mcg PO DAILY 03/15/21 [History Last Taken 05/20/21] metformin 500 mg tablet 500 mg PO TID #270 tab 03/19/21 [Rx Last Taken 05/20/21] hydrocodone-acetaminophen 5-325mg 5mg-325mg 1 tab PO Q8H PRN 30 Days #90 tab 05/04/21 [Rx Last Taken 05/20/21] calcium citrate-vitamin D3 [Calcium Citrate + D] 1 tab PO DAILY 05/21/21 [History Last Taken 05/20/21] diphenhydramine HCl [Benadryl] 50 mg PO QHS 05/21/21 [History Last Taken 05/20/21] duloxetine 30 mg PO DAILY 05/21/21 [History Last Taken 05/20/21] ferrous sulfate 325 mg PO DAILY 05/21/21 [History Last Taken 05/20/21] magnesium 500 mg PO QHS 05/21/21 [History Last Taken 05/20/21] multivitamin 1 tab PO DAILY 05/21/21 [History Last Taken 05/20/21] omeprazole 40 mg PO DAILY 05/21/21 [History Last Taken 05/20/21] furosemide [Lasix] 40 mg PO BID #60 tab 05/25/21 [Rx Last Taken Unknown] doxycycline hyclate 100 mg tablet 100 mg PO BID #14 tab 05/28/21 [Rx Last Taken Unknown] fluconazole 150 mg tablet 150 mg PO DAILY #1 tab 05/28/21 [Rx Last Taken Unknown] Allergy/AdvReac Type Severity Reaction Status Date / Time erythromycin base Allergy Hives Verified 05/28/21 13:04 Sulfa (Sulfonamide AdvReac Hives Verified 05/28/21 13:04 Antibiotics) Family History (Reviewed 05/21/21 @ 14:37 by Pavithra Sunny HEALTH INFORMATION PROVIDER, HEALTH INFORMATION PROVIDER-C) Father Myocardial infarction Mother Heart disease Myocardial infarction Surgical History (Reviewed 05/21/21 @ 14:38 by Pavithra Correa HEALTH INFORMATION PROVIDER, HEALTH INFORMATION PROVIDER-C) History of bilateral knee replacement History of History of cardioversion (09/23/12) History of carpal tunnel surgery of right wrist History of cholecystectomy History of gastric bypass History of left heart catheterization (10/2000) History of radiofrequency ablation procedure for cardiac arrhythmia (10/26/15) History of right and left heart catheterization (01/28/20) History of shoulder surgery Social History Smoking Status: Former smoker how long ago did patient quit smokin alcohol intake: never substance use type: does not use what type of physical activity do you participate in: none ROS ROS Narrative Negative x10 systems with exception of those listed above Constitutional Constitutional: Reports systems reviewed and no addt'l complaints, except as documented Eyes Eyes: Reports systems reviewed and no addt'l complaints, except as documented ENT HEENT: Reports systems reviewed and no addt'l complaints, except as documented Cardiovascular Cardiovascular: Reports systems reviewed and no addt'l complaints, except as documented Respiratory/Chest Respiratory/Chest: Reports systems reviewed and no addt'l complaints, except as documented Gastrointestinal Gastrointestinal: Reports systems reviewed and no addt'l complaints, except as documented Genitourinary Genitourinary: Reports systems reviewed and no addt'l complaints, except as documented Musculoskeletal Musculoskeletal: Reports systems reviewed and no addt'l complaints, except as documented Integumentary Integumentary: Reports systems reviewed and no addt'l complaints, except as documented Neurologic Neurologic: Reports systems reviewed and no addt'l complaints, except as documented Psychiatric Psychiatric: Reports systems reviewed and no addt'l complaints, except as documented Endocrine Endocrinology: Reports systems reviewed and no addt'l complaints, except as documented Hematologic/Lymphatic Hematologic/Lymphatic: Reports systems reviewed and no addt'l complaints, except as documented Allergic/Immunologic Allergic/Immunologic: Reports systems reviewed and no addt'l complaints, except as documented Vital Signs Vital Signs Vital Signs: 05/31/21 14:13 Temperature 96.9 F L Temperature Source Temporal Pulse Rate 78 Blood Pressure 112/79 Blood Pressure Mean 90 Blood Pressure Source Monitor Blood Pressure Position Sitting Blood Pressure Location Left Arm Physical Exam Const alert, oriented x3, no apparent distress, healthy appearing and well nourished General Appearance: cooperative Orientation / Consciousness: awake and oriented to person Exam Limitations: no limitations Nutritional Appearance: morbidly obese HEENT normocephalic Head and Scalp: normal to inspection Mouth: oral and palatal mucosa normal Eyes General Eye: normal appearance of both eyes Resp normal respiratory effort, normal air movement and no use of accessory muscles Effort and Inspection: able to speak in complete sentences Auscultation: clear to auscultation bilaterally Cardio regular rate, regular rhythm, S1 normal heart sound, S2 normal heart sound, no murmurs and peripheral pulses 2+ throughout Palpation: normal PMI Rate: regular rate Heart Sounds: S1 normal and S2 normal GI normal to inspection, nondistended, normoactive bowel sounds, soft to palpation, non-tender and non-distended Palpation: soft Extremity normal to inspection and full ROM General Extremity: normal exam except as noted Skin Wound Narrative: 3+ pitting bilateral lower extremity edema, palpable dorsal pedis pulses bilaterally, venous leg ulcer present to right lower extremity with adherent slough, no signs of obvious infection at this time. Ulceration is very superficial Neuro oriented x3 and moves all extremities Sensorium / Orientation: awake, alert, oriented to person, oriented to place and oriented to time Psych mental status grossly normal, thought process normal and denies hallucinations Appearance: grossly normal Attitude: calm Activity / Motor Behavior: appropriate eye contact Speech: normal speech Thought Process: normal thought process Thought Content: normal thought content Attention / Concentration: attention grossly intact Insight: insight good Judgement: judgement good Debridement Note Debridement Note Wound debrided: Right venous leg ulcer Laterality: Right Type of Debridement: Selective debridement Anesthesia Used: 4% Lidocaine Solution Depth: in the subcutaneous layer Percentage of wound debrided: 100 Instrument Used: 5mm curette Tissue Removed: Slough and devitalized tissue Severity: Fat Layer Exposed Amount of bleeding with debridement: Mild Bleeding Controlled with: Pressure Patient tolerated procedure: Patient tolerated procedure well Post-Debridement Measurements and Additional Note: Post-Debridement Measurements/Treatment WC - Nurse 1 - General Ulcer Assessment Start: 05/31/21 14:12 Freq: Status: Active Protocol: JOSE Activity Type Activity Date Activity User E-Sign Co-Sign Detail Recorded Client Recorded Date Recorded By Document 05/31/21 14:13 [id number] 05/31/21 14:17 05/31/21 14:13 - Today's Visit Information Type of service Initial Visit Arrival Mode Wheelchair Accompanied by Patient Identification Verified (Name & Yes ) Vital Signs Temperature (97.8 F-99.1 F) 96.9 F L Temperature Source Temporal Pulse Rate (60-100) 78 Pulse Location Monitor Blood Pressure (90/60-120/80) 112/79 Blood Pressure Mean 90 Source Monitor Position Sitting Blood Pressure Location Left Arm History Since Last Visit- (Skip if this is Patient's initial visit) Have you changed medications since your No last visit? Any new allergies or adverse reactions No Had a fall/change in ADL's that may No increase risk of falls Signs or symptoms of abuse and/or No neglect since last visit Have you been in the hospital since your No last visit? Has dressing in place as prescribed Yes Has compression in place as prescribed N/A Has offloadiing in place as prescribed N/A Experienced any changes in pain level or No management Pain Scale: 0-10 Numeric Is Patient Pain Free? Yes - Nurse 1 - General Ulcer Measurement Start: 05/31/21 14:12 Freq: Status: Active Protocol: Activity Type Activity Date Activity User E-Sign Co-Sign Detail Recorded Client Recorded Date Recorded By Document 05/31/21 14:13 OLYA [id number] 05/31/21 14:17 OLYA 05/31/21 14:13 Wound Center Nurse 1 #1 Right Lateral Lower Extremity -Current Size (cm) - Length 9.2 -Current Size (cm) - Width 7 -Current Size (cm) - Depth 0.1 -Total Square Cm 64.4 -Exudate Amt Medium -Exudate Type Serosanguineous -Wound Margin Distinct, Outline Attached -Granulation Amt Large (67-100%) -Granulation Quality Red -Necrosis Amt Small (1-33%) -Necrotic Tissue Type Adherent Slough -Texture (Reina-wound Skin Appearance) Assessed, Scarring -Moisture (Reina-wound Skin Appearance) Assessed, Maceration -Color (Reina-wound Skin Appearance) No Abnormality, Assessed -Temperature (Reina-wound Skin No Abnormality Appearance) (Pt Warm) -Tenderness on Palpation (Reina-wound No Skin Appearance) -Ulcer Cleansing Rinsed/ Irrigated with Saline -Foul Odor after Cleansing No -Anesthetic Used 4% Lidocaine Solution,5% Lidocaine Gel Right Calf (cm) 40.2 Right Ankle (cm) 23.8 Left Ankle (cm) 40 Left Foot (cm) 25 WC - Nurse 2 - General Ulcer CM Notes Start: 05/31/21 14:12 Freq: Status: Active Protocol: Activity Type Activity Date Activity User E-Sign Co-Sign Detail Recorded Client Recorded Date Recorded By Document 05/31/21 14:32 MW [id number] 05/31/21 14:39 MW 05/31/21 14:32 Wound Center Nurse 2 #1 Right Lateral Lower Extremity -Time 14:32 -Correct Patient Yes -Correct Side, Site, Position Yes -Correct Procedure Yes -Procedure Performed Yes -Type of Procedure Debridement -Clinical Debridement Subcutaneous -Tissue Removed Subcutaneous -Post Debridement (cm) - Length 10.0 -Post Debridement (cm) - Width 8.0 -Post Debridement (cm) - Depth 0.1 -Total Square (Post) (cm) 80.00 -Area of Debridement (cm) - Length 10.0 -Area of Debridement (cm) - Width 8.0 -Total Square (Area) (cm) 80.00 -Tunneling No -Undermining/Tunneling No -Circular Undermining No -Wound/Ulcer Outcome Not Healed -Ulcer Cleansing Rinsed/ Irrigated with Saline -Foul Odor after Cleansing No -Bioengineered Tissue No -Bleeding Controlled with Pressure -Offloading No -Treatment Response Procedure Tolerated Well -Debridement - Subq, 1st 20sq cm Yes -Debridement, SubQ, ea addt'l 20sq cm 3 or part thereof Pain Scale: 0-10 Numeric Is Patient Pain Free? Yes - Nurse 3 - General Ulcer D/C NN Start: 05/31/21 14:12 Freq: Status: Active Protocol: Activity Type Activity Date Activity User E-Sign Co-Sign Detail Recorded Client Recorded Date Recorded By Document 05/31/21 14:46 DL [id number] 05/31/21 14:48 DL 05/31/21 14:46 Wound Care Nurse 3 #1 Right Lateral Lower Extremity -Ulcer Cleansing Wound Cleanser -Foul Odor after Cleansing No -Primary Dressing Applied C Hydrogel ($) -Primary Dressing Covered/Secured with Dry Gauze & Roll Gauze, Secured with Tape Left -Tubular Bandage Double Layer -Size of Tubigrip Used Size E -Size E ($) 1 Right -Tubular Bandage Double Layer -Size of Tubigrip Used Size E -Size E ($) 1 Treatment Response Procedure Tolerated Well Pain Scale: 0-10 Numeric Is Patient Pain Free? Yes WC - Visit Discharge Discharge Condition Stable Ambulatory Status Ambulatory, Wheelchair Transportation Private Auto Charges/Coding Visit Charges Office Visits / Consults: [id number] OV L4 Est Procedures Integumentary [id number]: [id number] Carmen subq tissue 20 sq cm/< Add On Codes: [id number] Carmen subq tissue add-on (x 3) Assessment/Plan Assessment/Plan (1) Venous ulcer of right lower extremity with varicose veins: CODE(S): I83.019 - Varicose veins of right lower extremity with ulcer of unspecified site; L97.919 - Non-pressure chronic ulcer of unspecified part of right lower leg with unspecified severity (2) Acute right-sided heart failure: CODE(S): I50.811 - Acute right heart failure (3) Combined systolic and diastolic congestive heart failure: CODE(S): I50.40 - Unspecified combined systolic (congestive) and diastolic (congestive) heart failure (4) Moderate right ventricular systolic dysfunction: CODE(S): I51.9 - Heart disease, unspecified (5) Paroxysmal atrial fibrillation: CODE(S): I48.0 - Paroxysmal atrial fibrillation (6) Essential (primary) hypertension: CODE(S): I10 - Essential (primary) hypertension (7) Hyperlipidemia: CODE(S): E78.5 - Hyperlipidemia, unspecified (8) Diabetes type 2, controlled: CODE(S): E11.9 - Type 2 diabetes mellitus without complications QUALIFIERS: Diabetes mellitus intermission coordinator insulin use: without jail use Diabetes mellitus complication status: without complication Qualified Code(s): E11.9 - Type 2 diabetes mellitus without complications PLAN: Debridement performed today in clinic as annotated above. Hydrogel, Adaptic, gauze applied. At home wound-care instructions: Daily application of hydrogel, Adaptic, gauze Change dressing once daily or more frequently as needed due to contamination. Wash wounds daily with antibacterial soap and water, rinse and dry thoroughly before each dressing change. Compression: Double layer Tubigrip Off-loading: The patient was instructed to avoid pressure and friction on the affected areas. Reposition every 2 hours at minimum. Avoid prolonged standing and/or dangling of legs. When seated, feet should be elevated at chest level. Frequent ambulation is encouraged. Diet: Patient encouraged to increase protein intake while taking caution to avoid high carbohydrate and/or sugar intake. Patient is a non-smoker Labs/cultures/imaging: Cultures held. Routine baseline lab work held. Vascular studies held but MICKI from earlier this year was within normal limits. Follow-up: Return to clinic in 1 week for re-evaluation. Return sooner or report to the emergency room should symptoms worsen, or new symptoms arise. This note was generated with [employer] dictation software. It may contain incorrect words, spelling, and punctuation that were not noted in checking the note before signing. I have spent 35 minutes today reviewing labs, records, and history. Time includes coordinating care, interpretation of tests, and counseling the patient/family. This also includes time I spent with the patient for exam, treatment plan, and education as well as documenting clinical information in the electronic health record.
[2021-06-07 13:56] VITALS: BP 125/75; PULSE 79; TEMP 36.1
--- NOTE | 2021-06-07 16:33 | PCM.WC.PN ---
History of Present Illness Date of Service: 06/07/21 Chief Complaint: right lower extremity ulcer History of Wound: This is a 75-year-old white female who presents to the wound healing center today for complaint of nonhealing ulcer to her right lower extremity. She has a past medical history as listed above. Patient was hospitalized from 05/21/2021 to 05/25/2021 And treated for a CHF exacerbation. During her stay, she developed a large blister to her right lower extremity that eventually became open. The patient states that her BLEs were significantly swollen and she thinks this is what caused the blister. When she went to her hospital follow-up Appointment with her PCP, he put her on doxycycline, and ordered wound care that included triple antibiotic ointment, Telfa, and Kerlix. He referred her to this wound care center for further management. The patient states this wound has been causing her significant pain. However she denies any purulent drainage or any surrounding warmth at this time. Denies any other systemic or localized signs of infection. Past medical, family, and social history reviewed and not pertinent to the current visit and all other systems reviewed and negative with exception of those listed above. Progress of Wound: Stable, wound is improving, patient completed her antibiotic of doxycycline. However she now notes a yeast infection in her right groin. She states she has had to be on Diflucan and powder for this in the past. She states that the site is very moist, reddened, and smells yeasty. Otherwise no new concerns. Objective Data Objective Data Vital Signs: Vital Signs Temp Pulse BP 97.0 F L 79 125/75 H 06/07/21 13:56 06/07/21 13:56 06/07/21 13:56 Charges/Coding Procedures Integumentary [id number]: [id number] Carmen subq tissue 20 sq cm/< Physical Exam Const alert, oriented x3, no apparent distress, healthy appearing and well nourished General Appearance: cooperative Orientation / Consciousness: awake and oriented to person Exam Limitations: no limitations Nutritional Appearance: morbidly obese HEENT normocephalic Head and Scalp: normal to inspection Mouth: oral and palatal mucosa normal Eyes General Eye: normal appearance of both eyes Resp normal respiratory effort, normal air movement and no use of accessory muscles Effort and Inspection: able to speak in complete sentences Auscultation: clear to auscultation bilaterally Cardio regular rate, regular rhythm, S1 normal heart sound, S2 normal heart sound, no murmurs and peripheral pulses 2+ throughout Palpation: normal PMI Rate: regular rate Heart Sounds: S1 normal and S2 normal GI normal to inspection, nondistended, normoactive bowel sounds, soft to palpation, non-tender and non-distended Palpation: soft Extremity normal to inspection and full ROM General Extremity: normal exam except as noted Skin Skin Narrative: Right groin brightly reddened and moist appearing consistent with yeast dermatitis, strong yeast smell noted as well Wound Narrative: 3+ pitting bilateral lower extremity edema, palpable dorsal pedis pulses bilaterally, venous leg ulcer present to right lower extremity with adherent slough, no signs of obvious infection at this time. Ulceration is very superficial Neuro oriented x3 and moves all extremities Sensorium / Orientation: awake, alert, oriented to person, oriented to place and oriented to time Psych mental status grossly normal, thought process normal and denies hallucinations Appearance: grossly normal Attitude: calm Activity / Motor Behavior: appropriate eye contact Speech: normal speech Thought Process: normal thought process Thought Content: normal thought content Attention / Concentration: attention grossly intact Insight: insight good Judgement: judgement good Debridement Note Debridement Note Wound debrided: Right venous leg ulcer Laterality: Right Type of Debridement: Excisional debridement Anesthesia Used: 5% Lidocaine Gel Depth: Down to and including healthy tissue and in the subcutaneous layer Percentage of wound debrided: 100 Instrument Used: 5mm curette Tissue Removed: Slough and devitalized tissue Severity: Fat Layer Exposed Amount of bleeding with debridement: Mild Bleeding Controlled with: Pressure Patient tolerated procedure: Patient tolerated procedure well Post-Debridement Measurements and Additional Note: Post-Debridement Measurements/Treatment - Nurse 1 - General Ulcer Assessment Start: 05/31/21 14:12 Freq: Status: Active Protocol: JOSE Activity Type Activity Date Activity User E-Sign Co-Sign Detail Recorded Client Recorded Date Recorded By Document 05/31/21 14:13 OLYA [id number] 05/31/21 14:17 KR Document 06/07/21 13:56 OLYA [id number] 06/07/21 13:57 KR 05/31/21 06/07/21 14:13 13:56 - Today's Visit Information Type of service Initial Visit Follow-up Visit (Physician/[employer] ) Arrival Mode Wheelchair Wheelchair Accompanied by Patient Identification Verified (Name & Yes Yes ) Vital Signs Temperature (97.8 F-99.1 F) 96.9 F L 97.0 F L Temperature Source Temporal Temporal Pulse Rate (60-100) 78 79 Pulse Location Monitor Monitor Blood Pressure (90/60-120/80) 112/79 125/75 H Blood Pressure Mean (mm Hg) 90 91 Source Monitor Monitor Position Sitting Semi-Fowlers Blood Pressure Location Left Arm Left Arm History Since Last Visit- (Skip if this is Patient's initial visit) Have you changed medications since your No No last visit? Any new allergies or adverse reactions No No Had a fall/change in ADL's that may No No increase risk of falls Signs or symptoms of abuse and/or No No neglect since last visit Have you been in the hospital since your No No last visit? Has dressing in place as prescribed Yes Yes Has compression in place as prescribed N/A N/A Has offloadiing in place as prescribed N/A N/A Experienced any changes in pain level or No No management Left Footwear Slipper Right Footwear Slipper Pain Scale: 0-10 Numeric Is Patient Pain Free? Yes Yes WC - Nurse 1 - General Ulcer Measurement Start: 05/31/21 14:12 Freq: Status: Active Protocol: Activity Type Activity Date Activity User E-Sign Co-Sign Detail Recorded Client Recorded Date Recorded By Document 05/31/21 14:13 KR [id number] 05/31/21 14:17 KR Document 06/07/21 13:56 KR [id number] 06/07/21 13:57 KR 05/31/21 06/07/21 14:13 13:56 Wound Center Nurse 1 #1 Right Lateral Lower Extremity -Current Size (cm) - Length 9.2 7.5 -Current Size (cm) - Width 7 5 -Current Size (cm) - Depth 0.1 0.1 -Total Square Cm 64.4 37.5 -Exudate Amt Medium Medium -Exudate Type Serosanguineous Serosanguineous -Wound Margin Distinct, Distinct, Outline Outline Attached Attached -Granulation Amt Large (67-100%) Medium (34-66%) -Granulation Quality Red Red -Necrosis Amt Small (1-33%) Medium (34-66%) -Necrotic Tissue Type Adherent Slough Adherent Slough -Texture (Reina-wound Skin Appearance) Assessed, Assessed, Scarring Scarring -Moisture (Reina-wound Skin Appearance) Assessed, No Abnormality, Maceration Assessed -Color (Reina-wound Skin Appearance) No Abnormality, No Abnormality, Assessed Assessed -Temperature (Reina-wound Skin No Abnormality No Abnormality Appearance) (Pt Warm) (Pt Warm) -Tenderness on Palpation (Reina-wound No No Skin Appearance) -Ulcer Cleansing Rinsed/ Rinsed/ Irrigated with Irrigated with Saline Saline -Foul Odor after Cleansing No No -Anesthetic Used 4% Lidocaine 5% Lidocaine Solution,5% Gel Lidocaine Gel Right Calf (cm) 40.2 Right Ankle (cm) 23.8 Left Ankle (cm) 40 Left Foot (cm) 25 WC - Nurse 2 - General Ulcer CM Notes Start: 05/31/21 14:12 Freq: Status: Active Protocol: Activity Type Activity Date Activity User E-Sign Co-Sign Detail Recorded Client Recorded Date Recorded By Document 05/31/21 14:32 MW [id number] 05/31/21 14:39 MW Document 06/07/21 14:24 MW [id number] 06/07/21 14:28 MW 05/31/21 06/07/21 14:32 14:24 Wound Center Nurse 2 #1 Right Lateral Lower Extremity -Time 14:32 14:26 -Correct Patient Yes Yes -Correct Side, Site, Position Yes Yes -Correct Procedure Yes Yes -Procedure Performed Yes Yes -Type of Procedure Debridement Debridement -Clinical Debridement Subcutaneous Subcutaneous -Tissue Removed Subcutaneous Subcutaneous -Post Debridement (cm) - Length 10.0 8.0 -Post Debridement (cm) - Width 8.0 7.0 -Post Debridement (cm) - Depth 0.1 0.1 -Total Square (Post) (cm) 80.00 56.00 -Area of Debridement (cm) - Length 10.0 8.0 -Area of Debridement (cm) - Width 8.0 7.0 -Total Square (Area) (cm) 80.00 56.00 -Tunneling No No -Undermining/Tunneling No No -Circular Undermining No No -Wound/Ulcer Outcome Not Healed Not Healed -Ulcer Cleansing Rinsed/ Rinsed/ Irrigated with Irrigated with Saline Saline -Foul Odor after Cleansing No No -Bioengineered Tissue No No -Bleeding Controlled with Pressure Pressure -Offloading No No -Treatment Response Procedure Procedure Tolerated Well Tolerated Well -Debridement - Subq, 1st 20sq cm Yes Yes -Debridement, SubQ, ea addt'l 20sq cm 3 2 or part thereof Pain Scale: 0-10 Numeric Is Patient Pain Free? Yes Yes - Nurse 3 - General Ulcer D/C NN Start: 05/31/21 14:12 Freq: Status: Active Protocol: Activity Type Activity Date Activity User E-Sign Co-Sign Detail Recorded Client Recorded Date Recorded By Document 05/31/21 14:46 DL [id number] 05/31/21 14:48 DL Document 06/07/21 14:45 ML [id number] 06/07/21 14:46 ML 05/31/21 06/07/21 14:46 14:45 Wound Care Nurse 3 #1 Right Lateral Lower Extremity -Ulcer Cleansing Wound Cleanser Soap and Water -Foul Odor after Cleansing No -Primary Dressing Applied C Hydrogel ($) C Hydrogel ($) -Other Dressing adaptic, kerlex -Primary Dressing Covered/Secured with Dry Gauze & Roll Gauze, Secured with Tape Left -Tubular Bandage Double Layer Double Layer -Size of Tubigrip Used Size E Size F -Size E ($) 1 -Size F ($) 2 Right -Tubular Bandage Double Layer Double Layer -Size of Tubigrip Used Size E Size F -Size E ($) 1 -Size F ($) 2 Treatment Response Procedure Tolerated Well Pain Scale: 0-10 Numeric Is Patient Pain Free? 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: CODE(S): I83.019 - Varicose veins of right lower extremity with ulcer of unspecified site; L97.919 - Non-pressure chronic ulcer of unspecified part of right lower leg with unspecified severity (2) Acute right-sided heart failure: CODE(S): I50.811 - Acute right heart failure (3) Combined systolic and diastolic congestive heart failure: CODE(S): I50.40 - Unspecified combined systolic (congestive) and diastolic (congestive) heart failure (4) Moderate right ventricular systolic dysfunction: CODE(S): I51.9 - Heart disease, unspecified (5) Paroxysmal atrial fibrillation: CODE(S): I48.0 - Paroxysmal atrial fibrillation (6) Essential (primary) hypertension: CODE(S): I10 - Essential (primary) hypertension (7) Hyperlipidemia: CODE(S): E78.5 - Hyperlipidemia, unspecified (8) Diabetes type 2, controlled: CODE(S): E11.9 - Type 2 diabetes mellitus without complications QUALIFIERS: Diabetes mellitus maintenance advisor insulin use: without care home use Diabetes mellitus complication status: without complication Qualified Code(s): E11.9 - Type 2 diabetes mellitus without complications PLAN: Debridement performed today in clinic as annotated above. Hydrogel, Adaptic, gauze applied. Patient was also sent in nystatin powder and 3 doses of Diflucan for her yeast dermatitis. Advised to keep the area dry and also advised not to take her Diflucan in conjunction with her [place] due to a medication interaction. At home wound-care instructions: Daily application of hydrogel, Adaptic, gauze Change dressing once daily or more frequently as needed due to contamination. Wash wounds daily with antibacterial soap and water, rinse and dry thoroughly before each dressing change. Compression: Double layer Tubigrip Off-loading: The patient was instructed to avoid pressure and friction on the affected areas. Reposition every 2 hours at minimum. Avoid prolonged standing and/or dangling of legs. When seated, feet should be elevated at chest level. Frequent ambulation is encouraged. Diet: Patient encouraged to increase protein intake while taking caution to avoid high carbohydrate and/or sugar intake. Patient is a non-smoker Labs/cultures/imaging: Cultures held. Routine baseline lab work held. Vascular studies held but MICKI from earlier this year was within normal limits. Follow-up: Return to clinic in 1 week for re-evaluation. Return sooner or report to the emergency room should symptoms worsen, or new symptoms arise. This note was generated with [employer] dictation software. It may contain incorrect words, spelling, and punctuation that were not noted in checking the note before signing. I have spent 35 minutes today reviewing labs, records, and history. Time includes coordinating care, interpretation of tests, and counseling the patient/family. This also includes time I spent with the patient for exam, treatment plan, and education as well as documenting clinical information in the electronic health record.
[2021-06-14 14:35] VITALS: BP 125/56; PULSE 81; TEMP 35.6
--- NOTE | 2021-06-14 15:56 | PN.PCM_ITS ---
History of Present Illness Date of Service: 06/14/21 Chief Complaint: right lower extremity ulcer History of Wound: This is a 75-year-old white female who presents to the wound healing center today for complaint of nonhealing ulcer to her right lower extremity. She has a past medical history as listed above. Patient was hospitalized from 05/21/2021 to 05/25/2021 And treated for a CHF exacerbation. During her stay, she developed a large blister to her right lower extremity that eventually became open. The patient states that her BLEs were significantly swollen and she thinks this is what caused the blister. When she went to her hospital follow-up Appointment with her PCP, he put her on do xycycline, and ordered wound care that included triple antibiotic ointment, Telfa, and Kerlix. He referred her to this wound care center for further management. The patient states this wound has been causing her significant pain. However she denies any purulent drainage or any surrounding warmth at this time. Denies any other systemic or localized signs of infection. Past medical, family, and social history reviewed and not pertinent to the current visit and all other systems reviewed and negative with exception of those listed above. Progress of Wound: Stable, wound is improving, patient completed her antibiotic of doxycycline previously but still states that the wound is painful, cultures were collected today. She also notes improvement with her yeast infection in her right groin. Otherwise no new concerns. Objective Data Objective Data Vital Signs: Vital Signs Temp Pulse BP 96.1 F L 81 125/56 H 06/14/21 14:35 06/14/21 14:35 06/14/21 14:35 Charges/Coding Procedures Integumentary [id number]: [id number] Carmen subq tissue 20 sq cm/< Physical Exam Const alert, oriented x3, no apparent distress, healthy appearing and well nourished General Appearance: cooperative Orientation / Consciousness: awake and oriented to person Exam Limitations: no limitations Nutritional Appearance: morbidly obese HEENT normocephalic Head and Scalp: normal to inspection Mouth: oral and palatal mucosa normal Eyes General Eye: normal appearance of both eyes Resp normal respiratory effort, normal air movement and no use of accessory muscles Effort and Inspection: able to speak in complete sentences Auscultation: clear to auscultation bilaterally Cardio regular rate, regular rhythm, S1 normal heart sound, S2 normal heart sound, no murmurs and peripheral pulses 2+ throughout Palpation: normal PMI Rate: regular rate Heart Sounds: S1 normal and S2 normal GI normal to inspection, nondistended, normoactive bowel sounds, soft to palpation, non-tender and non-distended Palpation: soft Extremity normal to inspection and full ROM General Extremity: normal exam except as noted Skin Wound Narrative: 3+ pitting bilateral lower extremity edema, palpable dorsal pedis pulses bilaterally, venous leg ulcer present to right lower extremity with adherent slough, no signs of obvious infection at this time. Ulceration is very superficial Neuro oriented x3 and moves all extremities Sensorium / Orientation: awake, alert, oriented to person, oriented to place and oriented to time Psych mental status grossly normal, thought process normal and denies hallucinations Appearance: grossly normal Attitude: calm Activity / Motor Behavior: appropriate eye contact Speech: normal speech Thought Process: normal thought process Thought Content: normal thought content Attention / Concentration: attention grossly intact Insight: insight good Judgement: judgement good Debridement Note Debridement Note Wound debrided: Right VLU Laterality: Right Type of Debridement: Excisional debridement Anesthesia Used: 5% Lidocaine Gel Depth: Down to and including healthy tissue and in the subcutaneous layer Percentage of wound debrided: 100 Instrument Used: 5mm curette Tissue Removed: slough and devitalized tissue Severity: Fat Layer Exposed Amount of bleeding with debridement: Mild Bleeding Controlled with: Pressure Patient tolerated procedure: Patient tolerated procedure well Post-Debridement Measurements and Additional Note: Post-Debridement Measurements/Treatment - Nurse 1 - General Ulcer Assessment Start: 05/31/21 14:12 Freq: Status: Active Protocol: JOSE Activity Type Activity Date Activity User E-Sign Co-Sign Detail Recorded Client Recorded Date Recorded By Document 05/31/21 14:13 KR [id number] 05/31/21 14:17 KR Document 06/07/21 13:56 KR [id number] 06/07/21 13:57 KR Document 06/14/21 14:35 AK [id number] 06/14/21 14:37 AK 05/31/21 06/07/21 06/14/21 14:13 13:56 14:35 - Today's Visit Information Type of service Initial Visit Follow-up Visit Follow-up Visit (Physician/ORAL AND MAXILLOFACIAL PATHOLOGIST (Physician/ORAL AND MAXILLOFACIAL PATHOLOGIST ) ) Arrival Mode Wheelchair Wheelchair Wheelchair Accompanied by Patient Identification Verified (Name & Yes Yes Yes ) Finger Stick Blood Sugar(mg/dl) (if 113 indicated): Blood Sugar Stated by Patient Vital Signs Temperature (97.8 F-99.1 F) 96.9 F L 97.0 F L 96.1 F L Temperature Source Temporal Temporal Oral Pulse Rate (60-100) 78 79 81 Pulse Location Monitor Monitor Monitor Blood Pressure (90/60-120/80) 112/79 125/75 H 125/56 H Blood Pressure Mean (mm Hg) 90 91 79 Source Monitor Monitor Monitor Position Sitting Semi-Fowlers Blood Pressure Location Left Arm Left Arm History Since Last Visit- (Skip if this is Patient's initial visit) Have you changed medications since your No No No last visit? Any new allergies or adverse reactions No No No Had a fall/change in ADL's that may No No No increase risk of falls Signs or symptoms of abuse and/or No No No neglect since last visit Have you been in the hospital since your No No No last visit? Has dressing in place as prescribed Yes Yes Yes Has compression in place as prescribed N/A N/A Yes Has offloadiing in place as prescribed N/A N/A N/A Experienced any changes in pain level or No No No management Left Footwear Slipper Regular Shoe Right Footwear Slipper Regular Shoe Pain Scale: 0-10 Numeric Is Patient Pain Free? Yes Yes WC - Nurse 1 - General Ulcer Measurement Start: 05/31/21 14:12 Freq: Status: Active Protocol: Activity Type Activity Date Activity User E-Sign Co-Sign Detail Recorded Client Recorded Date Recorded By Document 05/31/21 14:13 KR [id number] 05/31/21 14:17 KR Document 06/07/21 13:56 KR [id number] 06/07/21 13:57 KR Document 06/14/21 14:35 AK [id number] 06/14/21 14:37 AK 05/31/21 06/07/21 06/14/21 14:13 13:56 14:35 Wound Center Nurse 1 #1 Right Lateral Lower Extremity -Combined with other wound No -Current Size (cm) - Length 9.2 7.5 8 -Current Size (cm) - Width 7 5 6 -Current Size (cm) - Depth 0.1 0.1 0.1 -Total Square Cm 64.4 37.5 48 -Photo Taken No -Epithelialization None Present -Tunneling No -Undermining/Tunneling No -Circular Undermining No -Classification - Thickness Partial Thickness -Change in Wound Grade/Stage No -Exudate Amt Medium Medium Medium -Exudate Type Serosanguineous Serosanguineous Serosanguineous -Wound Margin Distinct, Distinct, Distinct, Outline Outline Outline Attached Attached Attached -Granulation Amt Large (67-100%) Medium (34-66%) Medium (34-66%) -Granulation Quality Red Red Polk,Red -Slough/Fibrin Yes -Necrosis Amt Small (1-33%) Medium (34-66%) Small (1-33%) -Necrotic Tissue Type Adherent Slough Adherent Slough Adherent Slough -Structure Exposed N/A -Texture (Reina-wound Skin Appearance) Assessed, Assessed, No Abnormality, Scarring Scarring Assessed -Moisture (Reina-wound Skin Appearance) Assessed, No Abnormality, No Abno rmality, Maceration Assessed Assessed -Color (Reina-wound Skin Appearance) No Abnormality, No Abnormality, No Abnormality, Assessed Assessed Assessed -Temperature (Reina-wound Skin No Abnormality No Abnormality No Abnormality Appearance) (Pt Warm) (Pt Warm) (Pt Warm) -Tenderness on Palpation (Reina-wound No No Yes Skin Appearance) -Ulcer Cleansing Rinsed/ Rinsed/ Rinsed/ Irrigated with Irrigated with Irrigated with Saline Saline Saline -Foul Odor after Cleansing No No No -Anesthetic Used 4% Lidocaine 5% Lidocaine 4% Lidocaine Solution,5% Gel Solution Lidocaine Gel Right Calf (cm) 40.2 37 Right Ankle (cm) 23.8 22 Left Calf (cm) 40 Left Ankle (cm) 40 24 Left Foot (cm) 25 WC - Nurse 2 - General Ulcer CM Notes Start: 05/31/21 14:12 Freq: Status: Active Protocol: Activity Type Activity Date Activity User E-Sign Co-Sign Detail Recorded Client Recorded Date Recorded By Document 05/31/21 14:32 MW [id number] 05/31/21 14:39 MW Document 06/07/21 14:24 MW [id number] 06/07/21 14:28 MW Document 06/14/21 14:39 AK [id number] 06/14/21 14:45 AK 05/31/21 06/07/21 06/14/21 14:32 14:24 14:39 Wound Center Nurse 2 #1 Right Lateral Lower Extremity -Time 14:32 14:26 14:44 -Correct Patient Yes Yes Yes -Correct Side, Site, Position Yes Yes Yes -Correct Procedure Yes Yes Yes -Procedure Performed Yes Yes Yes -Type of Procedure Debridement Debridement Debridement -Clinical Debridement Subcutaneous Subcutaneous Subcutaneous -Tissue Removed Subcutaneous Subcutaneous Subcutaneous -Post Debridement (cm) - Length 10.0 8.0 7.7 -Post Debridement (cm) - Width 8.0 7.0 5.2 -Post Debridement (cm) - Depth 0.1 0.1 0.1 -Total Square (Post) (cm) 80.00 56.00 40.04 -Area of Debridement (cm) - Length 10.0 8.0 7.7 -Area of Debridement (cm) - Width 8.0 7.0 5.2 -Total Square (Area) (cm) 80.00 56.00 40.04 -Tunneling No No No -Undermining/Tunneling No No No -Circular Undermining No No No -Wound/Ulcer Outcome Not Healed Not Healed Not Healed -Ulcer Cleansing Rinsed/ Rinsed/ Rinsed/ Irrigated with Irrigated with Irrigated with Saline Saline Saline -Foul Odor after Cleansing No No No -Bioengineered Tissue No No No -Bleeding Controlled with Pressure Pressure Pressure -Offloading No No No -Treatment Response Procedure Procedure Procedure Tolerated Well Tolerated Well Tolerated Well -Debridement - Subq, 1st 20sq cm Yes Yes Yes -Debridement, SubQ, ea addt'l 20sq cm 3 2 2 or part thereof Pain Scale: 0-10 Numeric Is Patient Pain Free? Yes Yes Yes WC - Nurse 3 - General Ulcer D/C NN Start: 05/31/21 14:12 Freq: Status: Active Protocol: Activity Type Activity Date Activity User E-Sign Co-Sign Detail Recorded Client Recorded Date Recorded By Document 05/31/21 14:46 DL [id number] 05/31/21 14:48 DL Document 06/07/21 14:45 ML [id number] 06/07/21 14:46 ML Document 06/14/21 14:59 BMF [id number] 06/14/21 15:00 BMF 05/31/21 06/07/21 06/14/21 14:46 14:45 14:59 Wound Care Nurse 3 #1 Right Lateral Lower Extremity -Ulcer Cleansing Wound Cleanser Soap and Water Rinsed/ Irrigated with Saline -Foul Odor after Cleansing No No -Primary Dressing Applied C Hydrogel ($) C Hydrogel ($) NonAdherent Contact Layer, Silvercel -Other Dressing adaptic, kerlex -Primary Dressing Covered/Secured with Dry Gauze & Dry Gauze & Roll Gauze, Roll Gauze, Secured with Secured with Tape Tape,Other -Other Covering abd, kerlix -Silvercel 1 Left -Tubular Bandage Double Layer Double Layer Double Layer -Size of Tubigrip Used Size E Size F Size E -Size E ($) 1 1 -Size F ($) 2 Right -Tubular Bandage Double Layer Double Layer Double Layer -Size of Tubigrip Used Size E Size F Size E -Size E ($) 1 1 -Size F ($) 2 Treatment Response Procedure Procedure Tolerated Well Tolerated Well Pain Scale: 0-10 Numeric Is Patient Pain Free? 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: CODE(S): I83.019 - Varicose veins of right lower extremity with ulcer of unspecified site; L97.919 - Non-pressure chronic ulcer of unspecified part of right lower leg with unspecified severity (2) Acute right-sided heart failure: CODE(S): I50.811 - Acute right heart failure (3) Combined systolic and diastolic congestive heart failure: CODE(S): I50.40 - Unspecified combined systolic (congestive) and diastolic (congestive) heart failure (4) Moderate right ventricular systolic dysfunction: CODE(S): I51.9 - Heart disease, unspecified (5) Paroxysmal atrial fibrillation: CODE(S): I48.0 - Paroxysmal atrial fibrillation (6) Essential (primary) hypertension: CODE(S): I10 - Essential (primary) hypertension (7) Hyperlipidemia: CODE(S): E78.5 - Hyperlipidemia, unspecified (8) Diabetes type 2, controlled: CODE(S): E11.9 - Type 2 diabetes mellitus without complications QUALIFIERS: Diabetes mellitus terminal makeup operator insulin use: without terminal makeup operator use Diabetes mellitus complication status: without complication Qualified Code(s): E11.9 - Type 2 diabetes mellitus without complications PLAN: Debridement performed today in clinic as annotated above. moistened silvercell, Adaptic, gauze applied. At home wound-care instructions: Daily application of moistened silvercell, Adaptic, gauze Change dressing once daily or more frequently as needed due to contamination. Wash wounds daily with antibacterial soap and water, rinse and dry thoroughly before each dressing change. Compression: Double layer Tubigrip Off-loading: The patient was instructed to avoid pressure and friction on the affected areas. Reposition every 2 hours at minimum. Avoid prolonged standing and/or dangling of legs. When seated, feet should be elevated at chest level. Frequent ambulation is encouraged. Diet: Patient encouraged to increase protein intake while taking caution to avoid high carbohydrate and/or sugar intake. Patient is a non-smoker Labs/cultures/imaging: Cultures held. Routine baseline lab work held. Vascular studies held but MICKI from earlier this year was within normal limits. Follow-up: Return to clinic in 1 week for re-evaluation. Return sooner or report to the emergency room should symptoms worsen, or new symptoms arise. This note was generated with [employer] dictation software. It may contain incorrect words, spelling, and punctuation that were not noted in checking the note before signing. I have spent 35 minutes today reviewing labs, records, and history. Time includes coordinating care, interpretation of tests, and counseling the patient/family. This also includes time I spent with the patient for exam, treatment plan, and education as well as documenting clinical information in the electronic health record.
[2021-06-15 14:10] LABS: M R Staph aureus DNA By PCR Negative (Negative); Probe Check PASS; Specimen Processing Control PASS; Staph aureus DNA By PCR POSITIVE (Negative)
[2021-06-21 14:54] VITALS: BP 109/67; PULSE 70; TEMP 35.7
--- NOTE | 2021-06-21 23:08 | PCM.WC.PN ---
History of Present Illness Date of Service: 06/21/21 Chief Complaint: right lower extremity ulcer History of Wound: This is a 75-year-old white female who presents to the wound healing center today for complaint of nonhealing ulcer to her right lower extremity. She has a past medical history as listed above. Patient was hospitalized from 05/21/2021 to 05/25/2021 And treated for a CHF exacerbation. During her stay, she developed a large blister to her right lower extremity that eventually became open. The patient states that her BLEs were significantly swollen and she thinks this is what caused the blister. When she went to her hospital follow-up Appointment with her PCP, he put her on doxycycline, and ordered wound care that included triple antibiotic ointment, Telfa, and Kerlix. He referred her to this wound care center for further management. The patient states this wound has been causing her significant pain. However she denies any purulent drainage or any surrounding warmth at this time. Denies any other systemic or localized signs of infection. Past medical, family, and social history reviewed and not pertinent to the current visit and all other systems reviewed and negative with exception of those listed above. Progress of Wound: Stable, wound is improving, patient completed her antibiotic of doxycycline previously but still states that the wound is painful, cultures were collected prior and showed Pseudomonas, will be treated with Levaquin at renal dosing, this was sent to her pharmacy today. She is also having an increase in wound pain and I notified her PCP that an extra 14 tablets of Saluda will be prescribed OARRS was verified and demonstrates no red flags that would indicate abuse or diversion. She also notes improvement with her yeast infection in her right groin. Otherwise no new concerns. Objective Data Objective Data Vital Signs: Vital Signs Temp Pulse BP 96.3 F L 70 109/67 06/21/21 14:54 06/21/21 14:54 06/21/21 14:54 Lab / Micro Data Micro: Microbiology 06/15/21 14:40 Wound Abcess - Leg, Right Gram Stain - Final 06/15/21 14:40 Wound Abcess - Leg, Right Wound Culture - Final Pseudomonas aeroginosa Staphylococcus epidermidis 06/15/21 14:40 Wound Abcess - Leg, Right Anaerobic Culture - Final No anaerobic bacteria isolated. Charges/Coding Procedures Integumentary 111xxx-113xx: 17740 Carmen subq tissue 20 sq cm/< Physical Exam Const alert, oriented x3, no apparent distress, healthy appearing and well nourished General Appearance: cooperative Orientation / Consciousness: awake and oriented to person Exam Limitations: no limitations Nutritional Appearance: morbidly obese HEENT normocephalic Head and Scalp: normal to inspection Mouth: oral and palatal mucosa normal Eyes General Eye: normal appearance of both eyes Resp normal respiratory effort, normal air movement and no use of accessory muscles Effort and Inspection: able to speak in complete sentences Auscultation: clear to auscultation bilaterally Cardio regular rate, regular rhythm, S1 normal heart sound, S2 normal heart sound, no murmurs and peripheral pulses 2+ throughout Palpation: normal PMI Rate: regular rate Heart Sounds: S1 normal and S2 normal GI normal to inspection, nondistended, normoactive bowel sounds, soft to palpation, non-tender and non-distended Palpation: soft Extremity normal to inspection and full ROM General Extremity: normal exam except as noted Skin Wound Narrative: 3+ pitting bilateral lower extremity edema, palpable dorsal pedis pulses bilaterally, venous leg ulcer present to right lower extremity with adherent slough, no signs of obvious infection at this time. Ulceration is very superficial periwound erythema present today and site is very painful Neuro oriented x3 and moves all extremities Sensorium / Orientation: awake, alert, oriented to person, oriented to place and oriented to time Psych mental status grossly normal, thought process normal and denies hallucinations Appearance: grossly normal Attitude: calm Activity / Motor Behavior: appropriate eye contact Speech: normal speech Thought Process: normal thought process Thought Content: normal thought content Attention / Concentration: attention grossly intact Insight: insight good Judgement: judgement good Debridement Note Debridement Note Wound debrided: Right lower extremity venous leg ulcer Laterality: Right Type of Debridement: Excisional debridement Anesthesia Used: 5% Lidocaine Gel Depth: Down to and including healthy tissue and in the subcutaneous layer Percentage of wound debrided: 100 Instrument Used: 5mm curette Tissue Removed: Slough and devitalized tissue Severity: Fat Layer Exposed Bleeding Controlled with: Pressure Patient tolerated procedure: Patient tolerated procedure well Post-Debridement Measurements and Additional Note: Post-Debridement Measurements/Treatment [id number] - Nurse 1 - General Ulcer Assessment Start: 05/31/21 14:12 Freq: Status: Active Protocol: JOSE Activity Type Activity Date Activity User E-Sign Co-Sign Detail Recorded Client Recorded Date Recorded By Document 05/31/21 14:13 KR [id number] 05/31/21 14:17 KR Document 06/07/21 13:56 KR [id number] 06/07/21 13:57 KR Document 06/14/21 14:35 AK [id number] 06/14/21 14:37 AK Document 06/21/21 14:54 AK [id number] 06/21/21 14:59 AK 05/31/21 06/07/21 06/14/21 14:13 13:56 14:35 WC - Today's Visit Information Type of service Initial Visit Follow-up Visit Follow-up Visit (Physician/BIOMASS PRODUCTION MANAGER (Physician/BIOMASS PRODUCTION MANAGER ) ) Arrival Mode Wheelchair Wheelchair Wheelchair Accompanied by Patient Identification Verified (Name & Yes Yes Yes ) Patient Requires Transmission-Based Precautions Safety Precautions Finger Stick Blood Sugar(mg/dl) (if 113 indicated): Blood Sugar Stated by Patient Vital Signs Temperature (97.8 F-99.1 F) 96.9 F L 97.0 F L 96.1 F L Temperature Source Temporal Temporal Oral Pulse Rate (60-100) 78 79 81 Pulse Location Monitor Monitor Monitor Blood Pressure (90/60-120/80) 112/79 125/75 H 125/56 H Blood Pressure Mean (mm Hg) 90 91 79 Source Monitor Monitor Monitor Position Sitting Semi-Fowlers Blood Pressure Location Left Arm Left Arm History Since Last Visit- (Skip if this is Patient's initial visit) Have you changed medications since your No No No last visit? Any new allergies or adverse reactions No No No Had a fall/change in ADL's that may No No No increase risk of falls Signs or symptoms of abuse and/or No No No neglect since last visit Have you been in the hospital since your No No No last visit? Has dressing in place as prescribed Yes Yes Yes Has compression in place as prescribed N/A N/A Yes Has offloadiing in place as prescribed N/A N/A N/A Experienced any changes in pain level or No No No management Left Footwear Slipper Regular Shoe Right Footwear Slipper Regular Shoe Pain Scale: 0-10 Numeric Is Patient Pain Free? Yes Yes 06/21/21 14:54 WC - Today's Visit Information Type of service Follow-up Visit (Physician/BIOMASS PRODUCTION MANAGER ) Arrival Mode Wheelchair Accompanied by Patient Identification Verified (Name & Yes ) Patient Requires Transmission-Based No Precautions Safety Precautions NA Finger Stick Blood Sugar(mg/dl) (if indicated): Blood Sugar Vital Signs Temperature (97.8 F-99.1 F) 96.3 F L Temperature Source Temporal Pulse Rate (60-100) 70 Pulse Location Monitor Blood Pressure (90/60-120/80) 109/67 Blood Pressure Mean (mm Hg) 81 Source Monitor Position Blood Pressure Location History Since Last Visit- (Skip if this is Patient's initial visit) Have you changed medications since your No last visit? Any new allergies or adverse reactions No Had a fall/change in ADL's that may No increase risk of falls Signs or symptoms of abuse and/or No neglect since last visit Have you been in the hospital since your No last visit? Has dressing in place as prescribed Yes Has compression in place as prescribed Yes Has offloadiing in place as prescribed N/A Experienced any changes in pain level or No management Left Footwear Slipper Right Footwear Slipper Pain Scale: 0-10 Numeric Is Patient Pain Free? WC - Nurse 1 - General Ulcer Measurement Start: 05/31/21 14:12 Freq: Status: Active Protocol: Activity Type Activity Date Activity User E-Sign Co-Sign Detail Recorded Client Recorded Date Recorded By Document 05/31/21 14:13 KR [id number] 05/31/21 14:17 KR Document 06/07/21 13:56 KR [id number] 06/07/21 13:57 KR Document 06/14/21 14:35 AK [id number] 06/14/21 14:37 AK Document 06/21/21 14:54 AK [id number] 06/21/21 14:59 AK 05/31/21 06/07/21 06/14/21 14:13 13:56 14:35 Wound Center Nurse 1 #1 Right Lateral Lower Extremity -Combined with other wound No -Current Size (cm) - Length 9.2 7.5 8 -Current Size (cm) - Width 7 5 6 -Current Size (cm) - Depth 0.1 0.1 0.1 -Total Square Cm 64.4 37.5 48 -Photo Taken No -Epithelialization None Present -Tunneling No -Undermining/Tunneling No -Circular Undermining No -Classification - Thickness Partial Thickness -Change in Wound Grade/Stage No -Exudate Amt Medium Medium Medium -Exudate Type Serosanguineous Serosanguineous Serosanguineous -Wound Margin Distinct, Distinct, Distinct, Outline Outline Outline Attached Attached Attached -Granulation Amt Large (67-100%) Medium (34-66%) Medium (34-66%) -Granulation Quality Red Red [place],Red -Slough/Fibrin Yes -Necrosis Amt Small (1-33%) Medium (34-66%) Small (1-33%) -Necrotic Tissue Type Adherent Slough Adherent Slough Adherent Slough -Structure Exposed N/A -Texture (Reina-wound Skin Appearance) Assessed, Assessed, No Abnormality, Scarring Scarring Assessed -Moisture (Reian-wound Skin Appearance) Assessed, No Abnormality, No Abnormality, Maceration Assessed Assessed -Color (Reina-wound Skin Appearance) No Abnormality, No Abnormality, No Abnormality, Assessed Assessed Assessed -Temperature (Reina-wound Skin No Abnormality No Abnormality No Abnormality Appearance) (Pt Warm) (Pt Warm) (Pt Warm) -Tenderness on Palpation (Reina-wound No No Yes Skin Appearance) -Ulcer Cleansing Rinsed/ Rinsed/ Rinsed/ Irrigated with Irrigated with Irrigated with Saline Saline Saline -Foul Odor after Cleansing No No No -Anesthetic Used 4% Lidocaine 5% Lidocaine 4% Lidocaine Solution,5% Gel Solution Lidocaine Gel Right Calf (cm) 40.2 37 Right Ankle (cm) 23.8 22 Left Calf (cm) 40 Left Ankle (cm) 40 24 Left Foot (cm) 25 06/21/21 14:54 Wound Center Nurse 1 #1 Right Lateral Lower Extremity -Combined with other wound No -Current Size (cm) - Length 7.5 -Current Size (cm) - Width 7.2 -Current Size (cm) - Depth 0.1 -Total Square Cm 54.00 -Photo Taken No -Epithelialization -Tunneling No -Undermining/Tunneling No -Circular Undermining No -Classification - Thickness Partial Thickness -Change in Wound Grade/Stage No -Exudate Amt Medium -Exudate Type Serosanguineous -Wound Margin Distinct, Outline Attached -Granulation Amt Medium (34-66%) -Granulation Quality Lancaster -Slough/Fibrin No -Necrosis Amt Medium (34-66%) -Necrotic Tissue Type Adherent Slough -Structure Exposed N/A -Texture (Reina-wound Skin Appearance) Assessed, Scarring -Moisture (Reina-wound Skin Appearance) Assessed -Color (Reina-wound Skin Appearance) No Abnormality, Assessed -Temperature (Reina-wound Skin No Abnormality Appearance) (Pt Warm) -Tenderness on Palpation (Reina-wound No Skin Appearance) -Ulcer Cleansing Rinsed/ Irrigated with Saline -Foul Odor after Cleansing No -Anesthetic Used 5% Lidocaine Gel Right Calf (cm) 37 Right Ankle (cm) 23.5 Left Calf (cm) Left Ankle (cm) Left Foot (cm) WC - Nurse 2 - General Ulcer CM Notes Start: 05/31/21 14:12 Freq: Status: Active Protocol: Activity Type Activity Date Activity User E-Sign Co-Sign Detail Recorded Client Recorded Date Recorded By Document 05/31/21 14:32 MW [id number] 05/31/21 14:39 MW Document 06/07/21 14:24 MW [id number] 06/07/21 14:28 MW Document 06/14/21 14:39 AK [id number] 06/14/21 14:45 AK Document 06/21/21 15:08 MW [id number] 06/21/21 15:11 MW 05/31/21 06/07/21 06/14/21 14:32 14:24 14:39 Wound Center Nurse 2 #1 Right Lateral Lower Extremity -Time 14:32 14:26 14:44 -Correct Patient Yes Yes Yes -Correct Side, Site, Position Yes Yes Yes -Correct Procedure Yes Yes Yes -Procedure Performed Yes Yes Yes -Type of Procedure Debridement Debridement Debridement -Clinical Debridement Subcutaneous Subcutaneous Subcutaneous -Tissue Removed Subcutaneous Subcutaneous Subcutaneous -Post Debridement (cm) - Length 10.0 8.0 7.7 -Post Debridement (cm) - Width 8.0 7.0 5.2 -Post Debridement (cm) - Depth 0.1 0.1 0.1 -Total Square (Post) (cm) 80.00 56.00 40.04 -Area of Debridement (cm) - Length 10.0 8.0 7.7 -Area of Debridement (cm) - Width 8.0 7.0 5.2 -Total Square (Area) (cm) 80.00 56.00 40.04 -Tunneling No No No -Undermining/Tunneling No No No -Circular Undermining No No No -Wound/Ulcer Outcome Not Healed Not Healed Not Healed -Ulcer Cleansing Rinsed/ Rinsed/ Rinsed/ Irrigated with Irrigated with Irrigated with Saline Saline Saline -Foul Odor after Cleansing No No No -Bioengineered Tissue No No No -Bleeding Controlled with Pressure Pressure Pressure -Offloading No No No -Treatment Response Procedure Procedure Procedure Tolerated Well Tolerated Well Tolerated Well -Debridement - Subq, 1st 20sq cm Yes Yes Yes -Debridement, SubQ, ea addt'l 20sq cm 3 2 2 or part thereof Pain Scale: 0-10 Numeric Is Patient Pain Free? Yes Yes Yes 06/21/21 15:08 Wound Center Nurse 2 #1 Right Lateral Lower Extremity -Time 15:09 -Correct Patient Yes -Correct Side, Site, Position Yes -Correct Procedure Yes -Procedure Performed Yes -Type of Procedure Debridement -Clinical Debridement Subcutaneous -Tissue Removed Subcutaneous -Post Debridement (cm) - Length 7.7 -Post Debridement (cm) - Width 7.5 -Post Debridement (cm) - Depth 0.1 -Total Square (Post) (cm) 57.75 -Area of Debridement (cm) - Length 7.7 -Area of Debridement (cm) - Width 7.5 -Total Square (Area) (cm) 57.75 -Tunneling No -Undermining/Tunneling No -Circular Undermining No -Wound/Ulcer Outcome Not Healed -Ulcer Cleansing Rinsed/ Irrigated with Saline -Foul Odor after Cleansing No -Bioengineered Tissue No -Bleeding Controlled with Pressure -Offloading No -Treatment Response Procedure Tolerated Well -Debridement - Subq, 1st 20sq cm Yes -Debridement, SubQ, ea addt'l 20sq cm 2 or part thereof Pain Scale: 0-10 Numeric Is Patient Pain Free? Yes - Nurse 3 - General Ulcer D/C NN Start: 05/31/21 14:12 Freq: Status: Active Protocol: Activity Type Activity Date Activity User E-Sign Co-Sign Detail Recorded Client Recorded Date Recorded By Document 05/31/21 14:46 DL [id number] 05/31/21 14:48 DL Document 06/07/21 14:45 ML [id number] 06/07/21 14:46 ML Document 06/14/21 14:59 BMF [id number] 06/14/21 15:00 BMF Document 06/21/21 15:18 AK [id number] 06/21/21 15:19 AK 05/31/21 06/07/21 06/14/21 14:46 14:45 14:59 Wound Care Nurse 3 #1 Right Lateral Lower Extremity -Ulcer Cleansing Wound Cleanser Soap and Water Rinsed/ Irrigated with Saline -Foul Odor after Cleansing No No -Negative Pressure Wound Therapy -Primary Dressing Applied C Hydrogel ($) C Hydrogel ($) NonAdherent Contact Layer, Silvercel -Other Dressing adaptic, kerlex -Primary Dressing Covered/Secured with Dry Gauze & Dry Gauze & Roll Gauze, Roll Gauze, Secured with Secured with Tape Tape,Other -Other Covering abd, kerlix -Silvercel 1 Left -Tubular Bandage Double Layer Double Layer Double Layer -Size of Tubigrip Used Size E Size F Size E -Size E ($) 1 1 -Size F ($) 2 Right -Lotion applied to leg before compression wrap -Tubular Bandage Double Layer Double Layer Double Layer -Size of Tubigrip Used Size E Size F Size E -Size E ($) 1 1 -Size F ($) 2 Treatment Response Procedure Procedure Tolerated Well Tolerated Well Pain Scale: 0-10 Numeric Is Patient Pain Free? Yes Yes WC - Visit Discharge Discharge Condition Stable Stable Ambulatory Status Ambulatory, Wheelchair Transportation Private Auto Private Auto Accompanied by Medication Reconcilliation completed & provided to patient/care provider Clinical Summary of Care Provided 06/21/21 15:18 Wound Care Nurse 3 #1 Right Lateral Lower Extremity -Ulcer Cleansing Rinsed/ Irrigated with Saline -Foul Odor after Cleansing No -Negative Pressure Wound Therapy N/A -Primary Dressing Applied NonAdherent Contact Layer, Silvercel -Other Dressing ABD -Primary Dressing Covered/Secured with Dry Gauze & Roll Gauze, Secured with Tape -Other Covering -Silvercel 1 Left -Tubular Bandage -Size of Tubigrip Used -Size E ($) -Size F ($) Right -Lotion applied to leg before No compression wrap -Tubular Bandage Single Layer -Size of Tubigrip Used Size E -Size E ($) 1 -Size F ($) Treatment Response Pain Scale: 0-10 Numeric Is Patient Pain Free? 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: CODE(S): I83.019 - Varicose veins of right lower extremity with ulcer of unspecified site; L97.919 - Non-pressure chronic ulcer of unspecified part of right lower leg with unspecified severity (2) Acute right-sided heart failure: CODE(S): I50.811 - Acute right heart failure (3) Combined systolic and diastolic congestive heart failure: CODE(S): I50.40 - Unspecified combined systolic (congestive) and diastolic (congestive) heart failure (4) Moderate right ventricular systolic dysfunction: CODE(S): I51.9 - Heart disease, unspecified (5) Paroxysmal atrial fibrillation: CODE(S): I48.0 - Paroxysmal atrial fibrillation (6) Essential (primary) hypertension: CODE(S): I10 - Essential (primary) hypertension (7) Hyperlipidemia: CODE(S): E78.5 - Hyperlipidemia, unspecified (8) Diabetes type 2, controlled: CODE(S): E11.9 - Type 2 diabetes mellitus without complications QUALIFIERS: Diabetes mellitus shelter insulin use: without shelter use Diabetes mellitus complication status: without complication Qualified Code(s): E11.9 - Type 2 diabetes mellitus without complications PLAN: Debridement performed today in clinic as annotated above. moistened silvercell, Adaptic, gauze applied. At home wound-care instructions: Daily application of moistened silvercell, Adaptic, gauze Change dressing once daily or more frequently as needed due to contamination. Wash wounds daily with antibacterial soap and water, rinse and dry thoroughly before each dressing change. Compression: Double layer Tubigrip Off-loading: The patient was instructed to avoid pressure and friction on the affected areas. Reposition every 2 hours at minimum. Avoid prolonged standing and/or dangling of legs. When seated, feet should be elevated at chest level. Frequent ambulation is encouraged. Diet: Patient encouraged to increase protein intake while taking caution to avoid high carbohydrate and/or sugar intake. Patient is a non-smoker Labs/cultures/imaging: Cultures collected previously and showed Pseudomonas, patient started on the renal dosing of Levaquin, given her increased pain an extra 14 Saluda were sent to the pharmacy. Informed PCP of this.. Routine baseline lab work held. Vascular studies held but MICKI from earlier this year was within normal limits. Follow-up: Return to clinic in 1 week for re-evaluation. Return sooner or report to the emergency room should symptoms worsen, or new symptoms arise. This note was generated with [employer] dictation software. It may contain incorrect words, spelling, and punctuation that were not noted in checking the note before signing. I have spent 35 minutes today reviewing labs, records, and history. Time includes coordinating care, interpretation of tests, and counseling the patient/family. This also includes time I spent with the patient for exam, treatment plan, and education as well as documenting clinical information in the electronic health record.
== END 2021-06-24 23:59 ==
LOC: WC 14:30
PROVIDERS: PCP Family Medicine; Visit Provider Nurse Practitioner Family
DX: I83.018 Varicose veins of right lower extremity with ulcer other part of lower leg (principal); L97.812 Non-pressure chronic ulcer of other part of right lower leg with fat layer exposed; B37.2 Candidiasis of skin and nail; E11.9 Type 2 diabetes mellitus without complications; E66.01 Morbid (severe) obesity due to excess calories; E78.5 Hyperlipidemia, unspecified; G47.33 Obstructive sleep apnea (adult) (pediatric); G89.29 Other chronic pain; I11.0 Hypertensive heart disease with heart failure; I48.0 Paroxysmal atrial fibrillation; I50.40 Unspecified combined systolic (congestive) and diastolic (congestive) heart failure; I27.21 Secondary pulmonary arterial hypertension; I34.0 Nonrheumatic mitral (valve) insufficiency; Q21.1 Atrial septal defect; Z79.4 Long term (current) use of insulin; Z79.82 Long term (current) use of aspirin; Z86.711 Personal history of pulmonary embolism; Z87.891 Personal history of nicotine dependence
CPT/HCPCS: 11042; 11045; 87070; 87075; 87077; 87186; 87205; 87640; 99213; G0463